=== PATIENT | female | born 1935 | race Caucasian/White ===

== ENCOUNTER → 2016-12-29 | Outpatient (CLI) | payer MEDICARE, OTHER ==
--- NOTE | 2017-01-14 08:06 | MM ---
Reason for exam: screening (asymptomatic). Last mammogram was performed 1 year and 3 months ago. Physical Findings: A clinical breast exam by your physician is recommended on an annual basis and results should be correlated with mammographic findings. MG 3D Screening Mammo W/Cad Bilateral CC and MLO view(s) were taken. Prior study comparison: October 03, 2015, mammogram, performed at [place]. March 10, 2013, mammogram, performed at [place]. The breast tissue is heterogeneously dense. This may lower the sensitivity of mammography. No significant changes when compared with prior studies. ASSESSMENT: Benign, BI-RAD 2 RECOMMENDATION: Routine screening mammogram of both breasts in 1 year.
== END | disposition home or self-care (01) ==
LOC: RADMAMWWP 13:29
PROVIDERS: ATTEND Family Medicine
DX: Z12.31 Encounter for screening mammogram for malignant neoplasm of breast (principal)
CPT/HCPCS: 77063; G0202

== ENCOUNTER 2017-01-08 08:02 | Day surgery (SDC) | payer MEDICARE, OTHER ==
[2017-01-06 11:17] VITALS: BMI 20.7
[~2017-01-08 08:02] MED LIST: LACTATED RINGERS 1,000 ML IV SCH
[2017-01-08 08:23] VITALS: RESP 18; TEMP 97.8
[2017-01-08] MEDS ORDERED: LIDOCAINE 1% INJ 10MG/ML (20 ML MDV) ONE (08:23)
[2017-01-08] MEDS ORDERED: PROPOFOL 10 MG/ML 20 ML VIAL IV ONE (08:23)
--- NOTE | 2017-01-08 08:27 | P.GSHP ---
History of Present Illness H&P Date: 01/08/17 Chief Complaint: GI bleed This a 81-year-old female for from Dr. Titus Loco. Patient's had issues with GI bleed. She presents today for screening colonoscopy - Constitutional Constitutional: Reports as per HPI Past Medical History Past Medical History: Dementia, Memory Impairment Additional Past Medical History / Comment(s): forgetful per son, unsure about some of her health hx., had problem in past w/GI bleeding or rectal bleeding?, recent sleep study done-no results yet History of Any Multi-Drug Resistant Organisms: None Reported Additional Past Surgical History / Comment(s): oral surgy on palate?, partial thyroidectomy Past Anesthesia/Blood Transfusion Reactions: Unable to Obtain Additional Past Anesthesia/Blood Transfusion Reaction / Comment(s): mom not there w/him-he's unsure, he doesn't know of any problems Smoking Status: Never smoker - Past Family History Mother Family Medical History: No Reported History Medications and Allergies Home Medications Medication Instructions Recorded Confirmed Type Donepezil [Aricept] 10 mg PO QAM 01/06/17 01/08/17 History risperiDONE [RisperDAL] 0.25 mg PO HS 01/06/17 01/06/17 History Allergies Allergy/AdvReac Type Severity Reaction Status Date / Time No Known Allergies Allergy Verified 01/08/17 08:17 Surgical - Exam Vital Signs Temp Pulse Resp BP Pulse Ox 97.8 F 77 18 143/69 98 01/08/17 08:21 01/08/17 08:21 01/08/17 08:21 01/08/17 08:21 01/08/17 08:21 - General well developed, no distress - Eyes PERRL - ENT normal pinna Assessment and Plan Plan: GI bleed. We'll perform EGD and colonoscopy.
--- NOTE | 2017-01-08 08:44 | P.OP ---
Date of Procedure: 01/08/17 Preoperative Diagnosis: GI bleed Postoperative Diagnosis: Antral gastritis External hemorrhoids Diverticulosis Procedure(s) Performed: EGD Colonoscopy Implants: Anesthesia: SHARIF Surgeon: Nicanor Lechuga Pathology: other (Antrum) Condition: stable Indications for Procedure: Operative Findings: Description of Procedure: Patient's placed on the endoscopy table in the lateral position. She received IV sedation. The gastroscope some placed oropharynx and passed into the esophagus and into the stomach. The scope was then placed through the pylorus. The first and second portion of the duodenum appeared normal. The scope was then brought back the antrum and this appeared mildly inflamed. A biopsies performed. The scope was unretroflexed and remainder of the stomach appeared normal. There was a small hiatal hernia. The GE junction was at 40 cms. The distal esophagus appeared normal. The proximal esophagus appeared normal. Scope was withdrawn for patient. Next digital rectal exam was performed which revealed external hemorrhoids. The flexible colonoscope was then placed patient anus passed throughout the entire colon. The ileocecal valve was visualized. The cecum, ascending and transverse colon appeared normal. In the descending; there is mild diverticular changes. Scope was then brought back the rectum and this appeared normal. Scope was withdrawn for patient.
[2017-01-08 09:06] VITALS: BP 149/63; PULSE 63
== END 2017-01-08 09:25 | disposition home or self-care (01) ==
LOC: ORWHC2ENDO 08:02
PROVIDERS: ATTEND Surgery
DX: K29.60 Other gastritis without bleeding (principal); K64.4 Residual hemorrhoidal skin tags; K57.90 Diverticulosis of intestine, part unspecified, without perforation or abscess without bleeding; F03.90 Unspecified dementia, unspecified severity, without behavioral disturbance, psychotic disturbance, mood disturbance, and anxiety; Z79.899 Other long term (current) drug therapy
CPT/HCPCS: 88305; 88342; 45378; 43239; J2001; J2704

== ENCOUNTER → 2017-01-27 | Outpatient (CLI) | payer MEDICARE, OTHER ==
--- NOTE | 2017-01-27 10:11 | MR ---
EXAMINATION TYPE: MR brain wo con DATE OF EXAM: 01/27/2017 COMPARISON: NONE HISTORY: CVA, memory loss T1-weighted sagittal, T2, FLAIR, and diffusion axial, and T2 coronal coronal views of the brain are s ubmitted. There is no evidence of acute ischemia. Moderate generalized degenerative change. Diffuse confluent a nd multiple focal areas of abnormal signal within the white matter bilaterally are seen which are non specific. There is a tubular signal void adjacent to the basilar artery on the left. Hyperostosis of the calvarium noted. Craniocervical junction maintained. Changes of chronic left mastoiditis noted. Partially empty sella turcica noted. No cerebellopontine angle mass. Changes of chronic sinusitis noted. Abnormal signal in the joycelyn sugge stive of remote ischemia. IMPRESSION: 1. No acute intracranial process. 2. Moderate degenerative and diffuse nonspecific white matter changes most typical remote microvascul ar ischemia. 3. There is a signal void adjacent to the basilar artery the level of the joycelyn. Vascular anomaly in t he differential diagnosis. Recommend post contrast imaging and MRA [place].
== END | disposition home or self-care (01) ==
LOC: RADMRIMAIN 09:27
PROVIDERS: ATTEND Family Medicine
DX: R90.89 Other abnormal findings on diagnostic imaging of central nervous system (principal)
CPT/HCPCS: 70551

== ENCOUNTER → 2017-03-02 | Outpatient (CLI) | payer MEDICARE, OTHER ==
[2017-03-02 14:59] LABS: Non-African American GFR(MDRD) >60 (>60 ml/min/1.73 sqM)
--- NOTE | 2017-03-02 21:58 | MR ---
EXAMINATION TYPE: MR angio head wo con DATE OF EXAM: 03/02/2017 COMPARISON: NONE HISTORY: ABNORMAL MRI from January 2017 CONTRAST: None TECHNIQUE: Multiplanar multiecho imaging on a 3.0 Jana magnet is performed through the [place]. 3-D hyed-wc-wfwetz imaging is performed. Source images are reviewed on the computer in the axi al plane. Reconstructed images rotating on the computer are reviewed. FINDINGS: The internal carotid arteries bifurcate normally into A1 and M1 segments. The A2 segments are normal. Middle cerebral artery branches are normal. Anterior communicating artery is patent. The right posterior communicating artery is patent. The left posterior communicating artery is patent. Vertebrobasilar arteries within the [id number]-en-lojd are normal. Posterior cerebral vasculature is norm al. No suspicious aneurysm or aneurysmal dilatation is evident. No obstructions are identified. No significant flow-limiting stenosis is evident. Exam is compared to 01/27/2017. No signal abnormality adjacent to the basilar artery is identified. IMPRESSIONS: 1. NORMAL MRA [place] OF CAIN.
--- NOTE | 2017-03-02 22:06 | MR ---
EXAMINATION TYPE: MR brain wo/w con DATE OF EXAM: 03/02/2017 COMPARISON: NONE HISTORY: ABNORMAL MRI from January 2017 CONTRAST: Performed utilizing 5.0 mL intravenous Gadavist gadolinium contrast. TECHNIQUE: Multiplanar, multiecho imaging on a 3.0 Jana magnet is performed through the brain. Stud y is performed within 24 hours of arrival to the hospital. The craniovertebral junction is normal. The pituitary is normal. Diffusion-weighted imaging is performed. No abnormal hyperintensity is present to suggest an acute i ntracranial infarct or acute ischemic change. There are scattered punctate areas of hyperintensity on T2 and Inversion Recovery weighted sequences which are non-specific but can be related to microvascular ischemic changes. White matter changes nell ear stable. Ventricles and sulci are appropriate for the patient age. The signal void adjacent to the basilar artery is again identified. No abnormal signal on MRA is iden tified. No abnormal enhancement is evident. Findings are nonspecific but remains present. IMPRESSIONS: 1. Persistent hypointense signal adjacent to the basilar artery does not appear to have enhancement o r involvement with vascular structures. Finding is nonspecific and of unknown etiology. 2. Periventricular white matter hyperintensities compatible with microvascular ischemic changes.
== END | disposition home or self-care (01) ==
LOC: RADMRIMAIN 14:32
PROVIDERS: ATTEND Family Medicine
DX: R93.0 Abnormal findings on diagnostic imaging of skull and head, not elsewhere classified (principal); R90.82 White matter disease, unspecified
CPT/HCPCS: 82565; 70544; 70553; A9581

== ENCOUNTER → 2017-05-25 | Outpatient (CLI) | payer MEDICARE, OTHER ==
--- NOTE | 2017-05-25 16:48 | US ---
EXAMINATION TYPE: US thyroid st tissue head/neck DATE OF EXAM: 05/25/2017 COMPARISON: NONE CLINICAL HISTORY: 81-year-old female E04.1 Thyroid Nodule. Right thyroid nodule, status post left th yroidectomy TECHNIQUE: Multiple sonographic images of the thyroid gland are obtained. FINDINGS: GLAND SIZE: Right Lobe: 5.8 x 2.8 x 3.3 cm Overall Parenchyma: homogenous Left Lobe: surgically absent Isthmus Thickness: 0.2 cm NODULES RIGHT: # of nodules measured on right: 3 1. 3.5 X 2.4 x 2.7 cm hypoechoic solid nodule at the mid pole with well-defined margins. This nodul e is wider than tall and shows intranodular vascularity. Prior size: No previous 2. 1.9 X 1.0 x 1.5 cm hypoechoic solid nodule at the upper pole with well-defined margins. This nodu le is wider than tall and shows intranodular vascularity. Prior size: no previous 3. 1.3 X 1.1 x 1.3 cm isoechoic solid nodule at the lower pole with well-defined margins. This nodul e is wider than tall and shows intranodular vascularity. Prior size: no previous ISTHMUS: # of nodules measured in the isthmus: 0 Bilateral neck scanned, no evidence of lymphadenopathy. IMPRESSION: 1. Status post left thyroidectomy. 2. 3 nodules on the right, largest measuring 3.5 cm and smallest measuring 1.3 cm. Biopsy can be cons idered.
== END | disposition home or self-care (01) ==
LOC: RADUSWWP 13:40
PROVIDERS: ATTEND Otolaryngology
DX: E04.2 Nontoxic multinodular goiter (principal); Z90.89 Acquired absence of other organs
CPT/HCPCS: 76536

== ENCOUNTER → 2017-07-09 | Outpatient (CLI) | payer MEDICARE, OTHER ==
[2017-07-09 12:44] LABS: Basophils % (A) 1 %; CH 31.1; CHCM 32.5; Eosinophils % (A) 1 %; HCT 38.7 % (34.0-46.0); HDW 2.26; HGB 12.8 gm/dL (11.4-16.0); Luc # (Auto) 0.06; Luc % (Auto) 2; Lymphocytes # (A) 0.8 k/uL (1.0-4.8); Lymphocytes % (A) 23 %; MCH 31.6 pg (25.0-35.0); Mean Platelet Volume 7.5; Monocytes # (A) 0.2 k/uL (0-1.0); Monocytes % (A) 5 %; Neutrophils # (A) 2.4 k/uL (1.3-7.7); Neutrophils % (A) 69 %; RBC 4.04 m/uL (3.80-5.40); RDW 13.5 % (11.5-15.5); WBC 3.5 k/uL (3.8-10.6); WBC (Perox) 4.12
[2017-07-09 13:13] LABS: ALT 39 U/L (9-52); AST 25 U/L (14-36); Alkaline Phosphatase 58 U/L (38-126); Anion Gap 6 mmol/L; Blood Urea Nitrogen 16 mg/dL (7-17); Calcium 9.3 mg/dL (8.4-10.2); Carbon Dioxide 29 mmol/L (22-30); Chloride 105 mmol/L (98-107); Glucose 104 mg/dL (74-99); Non-African American GFR(MDRD) >60 (>60 ml/min/1.73 sqM); Potassium 4.4 mmol/L (3.5-5.1); Sodium 140 mmol/L (137-145); Total Bilirubin 0.3 mg/dL (0.2-1.3); Total Protein 6.1 g/dL (6.3-8.2)
== END | disposition home or self-care (01) ==
LOC: LABWHC1 12:18
PROVIDERS: ATTEND Nurse Practitioner Acute Care
DX: E55.9 Vitamin D deficiency, unspecified (principal); R41.3 Other amnesia
CPT/HCPCS: 36415; 80053; 82306; 82607; 84439; 84443; 84481; 85025

== ENCOUNTER → 2017-08-05 | Outpatient (CLI) | payer MEDICARE, OTHER ==
--- NOTE | 2017-08-07 15:32 | NM ---
EXAMINATION TYPE: NM DatScan Brain SPECT DATE OF EXAM: 08/06/2017 COMPARISON: Prior MRI brain report March 02, 2017. Prior images not available for direct comparison at time of dictation HISTORY: Tremors (G 25.0) per order. TECHNIQUE: 10 drops of Lugol's solution was administered 1 hour prior to injection as a thyroid bloc tello agent. After the administration of 4.92 mCi I-123 Ioflupane DaTscan. Images obtained 3 hours p ost injection. SPECT images of the brain were acquired with axial and coronal reconstructions. FINDINGS: The Floyd scan demonstrates normal uptake of tracer throughout the striata. Consequently there is no evidence of loss of the presynaptic dopaminergic terminals on this investiga tion. IMPRESSION: This normal appearance is against the diagnosis of idiopathic Parkinson's disease or parkinsonian syn drome and is seen in healthy individuals and also patient's with essential tremor, drug-induced parki nsonism and vascular pseudo-parkinsonism.
== END | disposition home or self-care (01) ==
LOC: RADNMMAIN 10:06
PROVIDERS: ATTEND Psychiatry & Neurology Neurology
DX: G25.0 Essential tremor (principal)
CPT/HCPCS: 78607; A9584

== ENCOUNTER 2017-11-17 19:21 | Inpatient (IN) | payer MEDICARE, OTHER ==
--- NOTE | 2017-11-17 19:34 | ED ---
General Adult HPI - General Stated complaint: Syncope Time Seen by Provider: 11/17/17 19:23 Source: RN notes reviewed, old records reviewed - History of Present Illness Initial comments: In this is an 82-year-old female the ER for evaluation syncope. Patient is also having counseled and cough. Complains of headache at this time. No sick contacts or travel history no chest pain shortness of breath or abdominal pain. Patient states she does feel dehydrated - Related Data Home Medications Medication Instructions Recorded Confirmed Chlorthalidone [Hygroton] 25 mg PO DAILY 11/17/17 11/17/17 Donepezil HCl [Aricept] 10 mg PO HS 11/17/17 11/17/17 Primidone [Mysoline] 50 mg PO BID 11/17/17 11/17/17 rOPINIRole HCL [Requip] 0.5 mg PO BID 11/17/17 11/17/17 risperiDONE [RisperDAL] 0.5 mg PO BID 11/17/17 11/17/17 Allergies Allergy/AdvReac Type Severity Reaction Status Date / Time No Known Allergies Allergy Verified 06/12/17 13:10 Review of Systems ROS Statement: Those systems with pertinent positive or pertinent negative responses have been documented in the HPI. ROS Other: All systems not noted in ROS Statement are negative. Past Medical History Past Medical History: Dementia, Memory Impairment Additional Past Medical History / Comment(s): forgetful per son, unsure about some of her health hx., had problem in past w/GI bleeding or rectal bleeding?, recent sleep study done. History of Any Multi-Drug Resistant Organisms: None Reported Additional Past Surgical History / Comment(s): oral surgy on palate. , left partial thyroidectomy Past Anesthesia/Blood Transfusion Reactions: Unable to Obtain Additional Past Anesthesia/Blood Transfusion Reaction / Comment(s): mom not there w/him-he's unsure, he doesn't know of any problems Past Psychological History: Anxiety, Schizoaffective Disorder Smoking Status: Never smoker Past Alcohol Use History: None Reported Past Drug Use History: None Reported - Past Family History Mother Family Medical History: No Reported History General Exam Limitations: altered mental status General appearance: alert, in no apparent distress, in distress, cachectic Head exam: Present: atraumatic, normocephalic, normal inspection Eye exam: Present: normal appearance, PERRL, EOMI. Absent: scleral icterus, conjunctival injection, periorbital swelling ENT exam: Present: normal exam, mucous membranes moist Neck exam: Present: normal inspection. Absent: tenderness, meningismus, lymphadenopathy Respiratory exam: Present: normal lung sounds bilaterally. Absent: respiratory distress, wheezes, rales, rhonchi, stridor Cardiovascular Exam: Present: regular rate, normal rhythm, normal heart sounds. Absent: systolic murmur, diastolic murmur, rubs, gallop, clicks GI/Abdominal exam: Present: soft, normal bowel sounds. Absent: distended, tenderness, guarding, rebound, rigid Extremities exam: Present: normal inspection, full ROM, normal capillary refill. Absent: tenderness, pedal edema, joint swelling, calf tenderness Back exam: Present: normal inspection Neurological exam: Present: alert, oriented X3, CN II-XII intact Psychiatric exam: Present: normal affect, normal mood Skin exam: Present: warm, dry, intact, normal color. Absent: rash Course Vital Signs 11/17/17 11/17/17 19:37 20:53 Temperature 97.7 F Pulse Rate 72 67 Respiratory 16 17 Rate Blood Pressure 172/81 161/77 O2 Sat by Pulse 100 99 Oximetry - Reevaluation(s) Reevaluation #1: 11/17/17 21:19 Patient is feeling better with hydration EKG Findings - EKG Comments: EKG Findings:: EKG shows sinus rhythm rate of 70, pO2 12, QRS 92, QTc 425 Medical Decision Making - Medical Decision Making 82 female ER syncopal event, hyponatremia, dehydration, malnutrition. Patient to be admitted for continued evaluation of low sodium, syncope - Lab Data Result diagrams: 11/17/17 19:36 11/17/17 20:07 Lab Results 11/17/17 11/17/17 11/17/17 Range/Units 19:36 19:36 20:07 WBC 3.7 L (3.8-10.6) k/uL RBC 3.56 L (3.80-5.40) m/uL Hgb 11.6 (11.4-16.0) gm/dL Hct 31.5 L (34.0-46.0) % MCV 88.4 (80.0-100.0) fL MCH 32.6 (25.0-35.0) pg MCHC 36.9 (31.0-37.0) g/dL RDW 12.3 (11.5-15.5) % Plt Count 184 (150-450) k/uL Neutrophils % 73 % Lymphocytes % 17 % Monocytes % 7 % Eosinophils % 1 % Basophils % 0 % Neutrophils # 2.7 (1.3-7.7) k/uL Lymphocytes # 0.6 L (1.0-4.8) k/uL Monocytes # 0.3 (0-1.0) k/uL Eosinophils # 0.1 (0-0.7) k/uL Basophils # 0.0 (0-0.2) k/uL PT 11.2 (9.0-12.0) sec INR 1.2 H (<1.2) APTT 23.7 (22.0-30.0) sec D-Dimer 2.11 H (<0.60) mg/L FEU Sodium 119 L* (137-145) mmol/L Potassium 3.1 L (3.5-5.1) mmol/L Chloride 85 L (98-107) mmol/L Carbon Dioxide 27 (22-30) mmol/L Anion Gap 7 mmol/L BUN 10 (7-17) mg/dL Creatinine 0.43 L (0.52-1.04) mg/dL Est GFR (CKD-EPI)AfAm >90 (>60 ml/min/1.73 sqM) Est GFR (CKD-EPI)NonAf >90 (>60 ml/min/1.73 sqM) Glucose 119 H (74-99) mg/dL Calcium 8.5 (8.4-10.2) mg/dL Magnesium 1.6 (1.6-2.3) mg/dL Total Bilirubin 0.6 (0.2-1.3) mg/dL AST 26 (14-36) U/L ALT 26 (9-52) U/L Alkaline Phosphatase 68 (38-126) U/L Total Creatine Kinase (30-135) U/L CK-MB (CK-2) (0.0-2.4) ng/mL CK-MB (CK-2) Rel Index Troponin I (0.000-0.034) ng/mL Total Protein 5.4 L (6.3-8.2) g/dL Albumin 3.2 L (3.5-5.0) g/dL Urine Color Urine Appearance (Clear) Urine pH (5.0-8.0) Ur Specific Nash (1.001-1.035) Urine Protein (Negative) Urine Glucose (UA) (Negative) Urine Ketones (Negative) Urine Blood (Negative) Urine Nitrite (Negative) Urine Bilirubin (Negative) Urine Urobilinogen (<2.0) mg/dL Ur Leukocyte Esterase (Negative) Ur Squamous Epith Cells (0-4) /hpf Urine Mucus (None) /hpf 11/17/17 11/17/17 Range/Units 20:07 20:07 WBC (3.8-10.6) k/uL RBC (3.80-5.40) m/uL Hgb (11.4-16.0) gm/dL Hct (34.0-46.0) % MCV (80.0-100.0) fL MCH (25.0-35.0) pg MCHC (31.0-37.0) g/dL RDW (11.5-15.5) % Plt Count (150-450) k/uL Neutrophils % % Lymphocytes % % Monocytes % % Eosinophils % % Basophils % % Neutrophils # (1.3-7.7) k/uL Lymphocytes # (1.0-4.8) k/uL Monocytes # (0-1.0) k/uL Eosinophils # (0-0.7) k/uL Basophils # (0-0.2) k/uL PT (9.0-12.0) sec INR (<1.2) APTT (22.0-30.0) sec D-Dimer (<0.60) mg/L FEU Sodium (137-145) mmol/L Potassium (3.5-5.1) mmol/L Chloride (98-107) mmol/L Carbon Dioxide (22-30) mmol/L Anion Gap mmol/L BUN (7-17) mg/dL Creatinine (0.52-1.04) mg/dL Est GFR (CKD-EPI)AfAm (>60 ml/min/1.73 sqM) Est GFR (CKD-EPI)NonAf (>60 ml/min/1.73 sqM) Glucose (74-99) mg/dL Calcium (8.4-10.2) mg/dL Magnesium (1.6-2.3) mg/dL Total Bilirubin (0.2-1.3) mg/dL AST (14-36) U/L ALT (9-52) U/L Alkaline Phosphatase (38-126) U/L Total Creatine Kinase 80 (30-135) U/L CK-MB (CK-2) 1.7 (0.0-2.4) ng/mL CK-MB (CK-2) Rel Index 2.1 Troponin I <0.012 (0.000-0.034) ng/mL Total Protein (6.3-8.2) g/dL Albumin (3.5-5.0) g/dL Urine Color Yellow Urine Appearance Cloudy H (Clear) Urine pH 8.0 (5.0-8.0) Ur Specific Nash 1.009 (1.001-1.035) Urine Protein Negative (Negative) Urine Glucose (UA) Negative (Negative) Urine Ketones Negative (Negative) Urine Blood Negative (Negative) Urine Nitrite Negative (Negative) Urine Bilirubin Negative (Negative) Urine Urobilinogen <2.0 (<2.0) mg/dL Ur Leukocyte Esterase Negative (Negative) Ur Squamous Epith Cells <1 (0-4) /hpf Urine Mucus Rare H (None) /hpf - Radiology Data Radiology results: report reviewed (CT brain negative chest x-ray negative CT chest pending), image reviewed Disposition Clinical Impression: Vasovagal syncope, Hyponatremia Disposition: ADMITTED IP TO THIS [facility] Condition: Fair Is patient prescribed a controlled substance at d/c from ED?: No Referrals: Titus Gutierrez MD [Primary Care Provider] - 1-2 days
[2017-11-17 19:53] LABS: Basophils % (A) 0 %; Eosinophils # (A) 0.1 k/uL (0-0.7); Eosinophils % (A) 1 %; HCT 31.5 % (34.0-46.0); HGB 11.6 gm/dL (11.4-16.0); Lymphocytes # (A) 0.6 k/uL (1.0-4.8); Lymphocytes % (A) 17 %; MCH 32.6 pg (25.0-35.0); MCHC 36.9 g/dL (31.0-37.0); MCV 88.4 fL (80.0-100.0); Mean Platelet Volume 6.9; Monocytes # (A) 0.3 k/uL (0-1.0); Monocytes % (A) 7 %; Neutrophils # (A) 2.7 k/uL (1.3-7.7); Neutrophils % (A) 73 %; Platelet Count 184 k/uL (150-450); RBC 3.56 m/uL (3.80-5.40); RDW 12.3 % (11.5-15.5); WBC 3.7 k/uL (3.8-10.6)
[2017-11-17 20:22] LABS: Appearance,Urine Cloudy (Clear); Bilirubin,Urine Negative (Negative); Blood,Urine Negative (Negative); Color,Urine Yellow; Glucose,Urine (UA) Negative (Negative); Ketones,Urine Negative (Negative); Leukocyte Esterase,Urine Negative (Negative); Mucus,Urine Rare /hpf; Nitrite,Urine Negative (Negative); Protein,Urine Negative (Negative); Specific Gravity,Urine 1.009 (1.001-1.035); Squamous Epithelial Cell,Urine <1 /hpf (0-4); Urobilinogen,Urine <2.0 mg/dL (<2.0)
[2017-11-17 20:26] LABS: INR 1.2 (<1.2); Partial Thromboplastin Time 23.7 sec (22.0-30.0); Prothrombin Time 11.2 sec (9.0-12.0)
[2017-11-17 20:33] LABS: D-Dimer 2.11 mg/L FEU (<0.60)
[2017-11-17 20:43] LABS: ALT 26 U/L (9-52); AST 26 U/L (14-36); Albumin 3.2 g/dL (3.5-5.0); Alkaline Phosphatase 68 U/L (38-126); Anion Gap 7 mmol/L; Blood Urea Nitrogen 10 mg/dL (7-17); Calcium 8.5 mg/dL (8.4-10.2); Carbon Dioxide 27 mmol/L (22-30); Chloride 85 mmol/L (98-107); Glucose 119 mg/dL (74-99); Magnesium 1.6 mg/dL (1.6-2.3); Potassium 3.1 mmol/L (3.5-5.1); Total Bilirubin 0.6 mg/dL (0.2-1.3); Total Protein 5.4 g/dL (6.3-8.2)
[2017-11-17 20:45] LABS: Sodium 119 mmol/L (137-145)
[2017-11-17 20:50] LABS: Creatine Kinase 80 U/L (30-135)
[2017-11-17 21:03] LABS: Creatine Kinase MB 1.7 ng/mL (0.0-2.4); Troponin I <0.012 ng/mL (0.000-0.034)
--- NOTE | 2017-11-17 21:05 | XR ---
EXAMINATION TYPE: XR chest 2V DATE OF EXAM: 11/17/2017 COMPARISON: NONE HISTORY: Dementia. Syncope. TECHNIQUE: Frontal and lateral views of the chest are obtained. FINDINGS: There is no heart failure nor confluent pneumonic infiltrate. Thoracic aorta is atheromato us. There is no pleural effusion. There are chest leads. IMPRESSION: No active cardiopulmonary disease. Atheromatous aorta.
--- NOTE | 2017-11-17 21:16 | CT ---
EXAMINATION TYPE: CT brain shukri jackson DATE OF EXAM: 11/17/2017 COMPARISON: NONE HISTORY: Syncopal episode today. CT DLP: 1081.8 mGycm Automated exposure control for dose reduction was used. TECHNIQUE: CT scan of the head and cervical spine are performed without contrast. FINDINGS: There is cerebral cortical atrophy. There is patchy hypodensity in the periventricular wh ite matter. There is no mass effect nor midline shift. There is no sign of intracranial hemorrhage. T he calvarium is intact. The cervical vertebra have fairly normal spacing and alignment. The posterior elements are intact. Th ere is minimal facet arthropathy. The skull base is intact. There is no evidence of a fracture. IMPRESSION: Cerebral atrophy. No acute intracranial abnormality. Chronic small vessel ischemia. Negative CT scan of the cervical spine. No fracture.
[2017-11-17] MEDS ORDERED: SODIUM CHLORIDE 0.9% 1,000 ML IV STA ×2 (21:20)
[2017-11-17] MEDS ORDERED: RX INFO: IV CONTRAST WAS GIVEN 1 EACH MISC MISCELLANE PRN (21:20)
[2017-11-17] MEDS ORDERED: POTASSIUM BICARBONATE/CIT AC 20 MEQ TABLET.EFF PO ONE (21:20)
[2017-11-17] MEDS ORDERED: SODIUM CHLORIDE 0.9% 500 ML IV STA (21:20)
[2017-11-17] MEDS ORDERED: POTASSIUM CHLORIDE 10 MEQ in WATER FOR INJECTION 1 100ML.BAG IVPB STA (21:22)
--- NOTE | 2017-11-17 22:18 | CT ---
EXAMINATION TYPE: CT angio chest DATE OF EXAM: 11/17/2017 9:53 PM COMPARISON: NONE HISTORY: Elevated d-dimer. Chest pain CT DLP: 125.6 mGycm Automated exposure control for dose reduction was used. CONTRAST: CTA scan of the thorax is performed with IV Contrast, patient injected with 78 mL of Isovue 370, pulm onary embolism protocol. There are 3-D post processed images.. FINDINGS: Ascending aorta measures 3.3 cm. There is no evidence of aortic aneurysm or dissection. I see no fill ing defects in the pulmonary arteries. There is no mediastinal adenopathy. There are no hilar masses. There is some reticular infiltrate in the upper lobes near the lung apices. There is no evidence of a pulmonary mass. There is patchy linear density at the lung bases. There is no pleural effusion. The re is no pericardial effusion. Bony thorax is intact. IMPRESSION: NO EVIDENCE OF PULMONARY EMBOLISM. PATCHY ATELECTASIS AT THE LUNG BASES. RETICULAR DENSITY IN THE OSVALDO G APICES CONSISTENT WITH SCARRING.
[2017-11-17] MEDS ORDERED: POTASSIUM CHLORIDE 20 MEQ in WATER FOR INJECTION 1 100ML.BAG IVPB ONE (22:30)
[2017-11-18] MEDS: ENOXAPARIN 40 MG/0.4 ML SYRINGE SQ SCH (09:31)
[2017-11-18] MEDS: risperiDONE 0.5 MG TAB PO SCH ×2 (09:31→20:43)
[2017-11-18] MEDS: PRIMIDONE 50 MG TAB PO SCH ×2 (09:31→20:42)
[2017-11-18 09:58] VITALS: BMI 15.2
[2017-11-18 11:59] LABS: Anion Gap 7 mmol/L; Blood Urea Nitrogen 11 mg/dL (7-17); Carbon Dioxide 27 mmol/L (22-30); Chloride 99 mmol/L (98-107); Glucose 127 mg/dL (74-99); Potassium 4.3 mmol/L (3.5-5.1); Sodium 133 mmol/L (137-145)
[2017-11-18] MEDS: DONEPEZIL 10 MG TAB PO SCH (20:42)
--- NOTE | 2017-11-18 22:19 | HP ---
HISTORY AND PHYSICAL CHIEF COMPLAINT: An 82-year-old white female with a fall at home. Apparently she had a syncopal episode and fell, did not hurt herself. Complained of a headache, may have hit her head. CT scan of the head and neck were negative as well as CT of the chest was negative. She states she does feel dehydrated. No shortness of breath, chest pain or abdominal pain. HOME MEDICATIONS: 1. Hygroton. 2. Aricept. 3. Mysoline. 4. Requip. 5. Risperdal. ALLERGIES: No known drug allergies. REVIEW OF SYSTEMS: Negative except for mentioned in HPI. PAST MEDICAL HISTORY: Dementia, memory impairment, anxiety, schizoaffective disorder, dementia with some psychotic features. She has had left a partial thyroidectomy. FAMILY HISTORY: Mother negative. Father unknown. PHYSICAL EXAM: She has altered mental status. Alert, giving some appropriate answers, does recognize who I am. CARDIOVASCULAR: S1, S2. HEMATOLOGY: Negative Homans'. PSYCH: Alert and oriented x1. BACK: Normal to inspection. NEUROLOGIC: Cranial nerves are intact. SKIN: Warm, dry. No rashes, excoriations, bruising. RESPIRATORY: Normal lung sounds. No rales or rhonchi. HEART: Regular rate and rhythm rate and rhythm. OPHTHALMOLOGICAL: Pupils equal, round, reactive to light and accommodation. Temp 97.7, pulse 67-72, respiratory 16-17, blood pressure 160s-170s/70s. EKG: Sinus rhythm. White count is 3.7, hemoglobin 11.6. Sodium 119, potassium 3.1, BUN 10, creatinine 0.43. Troponin is negative. ASSESSMENT: 1. Vasovagal syncope. 2. Hyponatremia. 3. Hypokalemia. Electrolytes will be replaced. IV fluids will be given. Diuretics will be discontinued. Cardiology consult, PT/OT. MMORALIAL / IJN: [id number] /
[2017-11-19] MEDS: SODIUM CHLORIDE 0.9% 1,000 ML IV SCH ×2 (06:24→12:20)
[2017-11-19] MEDS: risperiDONE 0.5 MG TAB PO SCH ×2 (07:48→20:25)
[2017-11-19] MEDS: ENOXAPARIN 40 MG/0.4 ML SYRINGE SQ SCH (07:48)
[2017-11-19] MEDS: PRIMIDONE 50 MG TAB PO SCH ×2 (07:48→20:25)
--- NOTE | 2017-11-19 08:10 | CDI ---
Last Revision, June 2017 Documentation Clarification Form Date: 11/19/2017 8:06:00 AM From: Emily HaynesALYSSA, CCDS Admit Date: 11/17/2017 11:32:00 PM Patient Name: Emily Esqueda Visit Number: [id number] Discharge Date: ATTENTION: The Clinical Documentation Specialists (CDI) and [facility] Coding Staff appreciate your assistance in clarifying documentation. Please respond to the clarification below the line at the bottom and electronically sign. The CDI & [facility] Coding staff will review the response and follow-up if needed. Please note: Queries are made part of the Legal Health Record. If you have any questions, please contact the author of this message via ITS. Dr. Titus Gutierrez: Malnutrition has been documented in the ED note. Also diagnosed with dehydration , hyponatremia & hypokalemia. Per the nursing notes 11/18: ...sunken eyes, temoral wasting. History/Risk Factors: Dementia, memory impairment, schizoaffective disorder. Clinical Indicators: Presented to ED after fall at home, nos, possibly hit her head after vasovagal syncopal event. Weight: 39.009 kg, Height: 5ft 3in. BMI: 15.2 Labs: Total Protein 5.4*, Albumin 3.2* Treatment: Electrolyte replacement, IV fluid boluses x2, IV fl rate 100 Pending cardiology consult. In your professional opinion, can you please clarify if these findings signify one of the following conditions? Mild Protein-Calorie Malnutrition Moderate Protein-Calorie Malnutrition Severe Protein-Calorie Malnutrition Other condition, please specify Unable to determine Please continue to document in your progress notes and discharge summary in order to capture severity of illness and risk of mortality. Include clinical findings that support your diagnosis. MTDD
[2017-11-19 10:15] LABS: ALT 19 U/L (9-52); AST 20 U/L (14-36); Alkaline Phosphatase 61 U/L (38-126); Anion Gap 10 mmol/L; Blood Urea Nitrogen 9 mg/dL (7-17); Calcium 8.7 mg/dL (8.4-10.2); Carbon Dioxide 25 mmol/L (22-30); Chloride 101 mmol/L (98-107); Glucose 124 mg/dL (74-99); Potassium 4.4 mmol/L (3.5-5.1); Sodium 136 mmol/L (137-145); Total Bilirubin 0.3 mg/dL (0.2-1.3); Total Protein 5.2 g/dL (6.3-8.2)
[2017-11-19 10:17] LABS: Basophils % (A) 1 %; Eosinophils # (A) 0.1 k/uL (0-0.7); Eosinophils % (A) 1 %; HCT 37.1 % (34.0-46.0); HGB 13.1 gm/dL (11.4-16.0); Lymphocytes # (A) 0.7 k/uL (1.0-4.8); Lymphocytes % (A) 15 %; MCH 32.9 pg (25.0-35.0); MCHC 35.3 g/dL (31.0-37.0); Mean Platelet Volume 6.9; Monocytes # (A) 0.2 k/uL (0-1.0); Monocytes % (A) 6 %; Neutrophils # (A) 3.4 k/uL (1.3-7.7); Neutrophils % (A) 77 %; Platelet Count 245 k/uL (150-450); RBC 3.98 m/uL (3.80-5.40); RDW 12.4 % (11.5-15.5); WBC 4.4 k/uL (3.8-10.6)
[2017-11-19 15:47] VITALS: RESP 16
[2017-11-19] MEDS: DONEPEZIL 10 MG TAB PO SCH (20:25)
--- NOTE | 2017-11-19 20:53 | PN ---
PROGRESS NOTE SUBJECTIVE: [id number] white female who was admitted with a fall, contusion to the head, admitted for monitoring. Her sodium and potassium have been evaluated. She is back to her baseline. CARDIOVASCULAR: S1, S2. LUNGS: Transmitted upper airway sounds. HEMATOLOGY: Negative Homans. White count is normal. Hemoglobin is normal. Sodium 136, potassium 4.4, creatinine 0.5, glucose mid 100s. Albumin 3.0. ASSESSMENT: 1. Head contusion. 2. Hypokalemia. 3. Hyponatremia. All improving. Continue with current treatment, PT/OT. Possible discharge home in next 24 to 48 hours. MMODL / IJN: [id number] /
--- NOTE | 2017-11-19 22:53 | DS ---
DISCHARGE SUMMARY ADDENDUM: Mild protein calorie malnutrition. MMODL / IJN: [id number] /
[2017-11-20] MEDS: SODIUM CHLORIDE 0.9% 1,000 ML IV SCH (05:06)
[2017-11-20 07:00] VITALS: BP 122/64; PULSE 74; TEMP 97.5
[2017-11-20] MEDS: ENOXAPARIN 40 MG/0.4 ML SYRINGE SQ SCH (07:54)
[2017-11-20] MEDS: risperiDONE 0.5 MG TAB PO SCH (07:54)
[2017-11-20] MEDS: PRIMIDONE 50 MG TAB PO SCH (07:54)
== END 2017-11-20 13:29 | disposition home health service (06) | DRG 641 ==
LOC: EC 19:21 → 4MS4W 23:32
PROVIDERS: ADMIT Family Medicine; ATTEND Family Medicine
DX: E87.1 Hypo-osmolality and hyponatremia (principal); E44.1 Mild protein-calorie malnutrition; Z68.1 Body mass index [BMI] 19.9 or less, adult; F03.90 Unspecified dementia, unspecified severity, without behavioral disturbance, psychotic disturbance, mood disturbance, and anxiety; F41.9 Anxiety disorder, unspecified; Z79.899 Other long term (current) drug therapy; E86.0 Dehydration; E87.6 Hypokalemia; F25.9 Schizoaffective disorder, unspecified; S00.93XA Contusion of unspecified part of head, initial encounter; W19.XXXA Unspecified fall, initial encounter; Y92.009 Unspecified place in unspecified non-institutional (private) residence as the place of occurrence of the external cause; E89.0 Postprocedural hypothyroidism; R40.2361 Coma scale, best motor response, obeys commands, in the field [EMT or ambulance]; R40.2141 Coma scale, eyes open, spontaneous, in the field [EMT or ambulance]; R40.2241 Coma scale, best verbal response, confused conversation, in the field [EMT or ambulance]
CPT/HCPCS: 36415; 70450; 71046; 71275; 72125; 80048; 80053; 81001; 82550; 82553; 83735; 84484; 85025; 85379; 85610; 85730; 93005; 96365; 96366; 99285

== ENCOUNTER 2017-12-05 00:02 | Inpatient (IN) | payer MEDICARE, OTHER ==
[2017-12-05 00:36] LABS: Basophils % (A) 0 %; Eosinophils # (A) 0.2 k/uL (0-0.7); Eosinophils % (A) 6 %; HCT 38.5 % (34.0-46.0); HGB 13.4 gm/dL (11.4-16.0); Lymphocytes # (A) 0.8 k/uL (1.0-4.8); Lymphocytes % (A) 24 %; MCH 32.5 pg (25.0-35.0); MCHC 34.8 g/dL (31.0-37.0); MCV 93.5 fL (80.0-100.0); Mean Platelet Volume 6.9; Monocytes # (A) 0.3 k/uL (0-1.0); Monocytes % (A) 7 %; Neutrophils # (A) 2.1 k/uL (1.3-7.7); Neutrophils % (A) 61 %; Platelet Count 200 k/uL (150-450); RBC 4.12 m/uL (3.80-5.40); RDW 12.7 % (11.5-15.5); WBC 3.5 k/uL (3.8-10.6)
--- NOTE | 2017-12-05 00:46 | ED ---
Dizziness HPI - General Chief Complaint: Dizziness Stated Complaint: not feeling well Time Seen by Provider: 12/05/17 00:13 Source: patient, family Mode of arrival: ambulatory Limitations: no limitations - History of Present Illness MD Complaint: dizziness, difficulty walking -: days(s) Timing: gradual onset Description: off-balance, difficulty walking History of Trauma: No Severity: severe Improves With: nothing Worsens With: nothing Associated Symptoms: weakness - Related Data Home Medications Medication Instructions Recorded Confirmed Donepezil HCl [Aricept] 10 mg PO HS 11/17/17 12/05/17 Primidone [Mysoline] 50 mg PO BID 11/17/17 12/05/17 Previous Rx's Medication Instructions Recorded Haloperidol [Haldol] 0.5 mg PO BID tab 12/10/17 Multivitamins, Thera [Multivitamin 1 each PO DAILY@1200 tab 12/10/17 (formulary)] Allergies Allergy/AdvReac Type Severity Reaction Status Date / Time No Known Allergies Allergy Verified 12/05/17 12:21 Review of Systems ROS Statement: Those systems with pertinent positive or pertinent negative responses have been documented in the HPI. ROS Other: All systems not noted in ROS Statement are negative. Constitutional: Reports: weakness Respiratory: Denies: cough, dyspnea Cardiovascular: Denies: chest pain, palpitations, orthopnea, edema, syncope Gastrointestinal: Reports: diarrhea. Denies: abdominal pain, vomiting Genitourinary: Denies: dysuria Musculoskeletal: Denies: back pain Skin: Denies: rash Neurological: Denies: headache, weakness, numbness Past Medical History Past Medical History: Dementia, Memory Impairment Additional Past Medical History / Comment(s): forgetful per son, unsure about some of her health hx., had problem in past w/GI bleeding or rectal bleeding?, recent sleep study done. History of Any Multi-Drug Resistant Organisms: None Reported Additional Past Surgical History / Comment(s): oral surgy on palate. , left partial thyroidectomy Past Anesthesia/Blood Transfusion Reactions: Unable to Obtain Additional Past Anesthesia/Blood Transfusion Reaction / Comment(s): mom not there w/him-he's unsure, he doesn't know of any problems Past Psychological History: Anxiety, Schizoaffective Disorder Smoking Status: Never smoker Past Alcohol Use History: None Reported Past Drug Use History: None Reported - Past Family History Mother Family Medical History: No Reported History General Exam Limitations: no limitations General appearance: alert, in no apparent distress Head exam: Present: atraumatic, normocephalic Eye exam: Present: normal appearance. Absent: scleral icterus, conjunctival injection ENT exam: Absent: normal oropharynx Neck exam: Present: normal inspection Respiratory exam: Present: normal lung sounds bilaterally. Absent: respiratory distress, wheezes, rales, rhonchi, stridor Cardiovascular Exam: Present: regular rate, normal rhythm, normal heart sounds. Absent: systolic murmur, diastolic murmur, rubs, gallop GI/Abdominal exam: Present: soft. Absent: distended, tenderness, guarding, rebound Course Vital Signs 12/05/17 12/05/17 00:04 03:00 Temperature 97.2 F L 97.6 F Pulse Rate 68 77 Respiratory 16 20 Rate Blood Pressure 159/76 136/77 O2 Sat by Pulse 97 98 Oximetry EKG Findings - EKG Comments: EKG Findings:: There is possible right ventricular conduction delay. - EKG Results: EKG: interpreted by FUNMI, sinus rhythm, normal axis EKG shows: bradycardia (Rate approximately 58 bpm) - Blocks, [place], Hypertrophy, ST Abn: AV and intraventricular conduction: 1 AV block Medical Decision Making - Lab Data Result diagrams: 12/06/17 06:57 12/06/17 06:56 Lab Results 12/05/17 12/05/17 12/05/17 Range/Units 00:13 00:23 00:23 WBC 3.5 L (3.8-10.6) k/uL RBC 4.12 (3.80-5.40) m/uL Hgb 13.4 (11.4-16.0) gm/dL Hct 38.5 (34.0-46.0) % MCV 93.5 (80.0-100.0) fL MCH 32.5 (25.0-35.0) pg MCHC 34.8 (31.0-37.0) g/dL RDW 12.7 (11.5-15.5) % Plt Count 200 (150-450) k/uL Neutrophils % 61 % Lymphocytes % 24 % Monocytes % 7 % Eosinophils % 6 % Basophils % 0 % Neutrophils # 2.1 (1.3-7.7) k/uL Lymphocytes # 0.8 L (1.0-4.8) k/uL Monocytes # 0.3 (0-1.0) k/uL Eosinophils # 0.2 (0-0.7) k/uL Basophils # 0.0 (0-0.2) k/uL Sodium 134 L (137-145) mmol/L Potassium 4.1 (3.5-5.1) mmol/L Chloride 98 (98-107) mmol/L Carbon Dioxide 25 (22-30) mmol/L Anion Gap 11 mmol/L BUN 10 (7-17) mg/dL Creatinine 0.50 L (0.52-1.04) mg/dL Est GFR (CKD-EPI)AfAm >90 (>60 ml/min/1.73 sqM) Est GFR (CKD-EPI)NonAf >90 (>60 ml/min/1.73 sqM) Glucose 97 (74-99) mg/dL Calcium 9.3 (8.4-10.2) mg/dL Magnesium (1.6-2.3) mg/dL Total Bilirubin 0.4 (0.2-1.3) mg/dL AST 36 (14-36) U/L ALT 41 (9-52) U/L Alkaline Phosphatase 69 (38-126) U/L Troponin I (0.000-0.034) ng/mL Total Protein 6.1 L (6.3-8.2) g/dL Albumin 3.7 (3.5-5.0) g/dL Urine Color Urine Appearance (Clear) Urine pH (5.0-8.0) Ur Specific [place] (1.001-1.035) Urine Protein (Negative) Urine Glucose (UA) (Negative) Urine Ketones (Negative) Urine Blood (Negative) Urine Nitrite (Negative) Urine Bilirubin (Negative) Urine Urobilinogen (<2.0) mg/dL Ur Leukocyte Esterase (Negative) Urine RBC (0-5) /hpf Urine WBC (0-5) /hpf Ur Squamous Epith Cells (0-4) /hpf Urine Bacteria (None) /hpf Urine Mucus (None) /hpf C. difficile (EIA) Intrp Negative (Negative) 12/05/17 12/05/17 12/06/17 Range/Units 00:23 00:34 06:56 WBC (3.8-10.6) k/uL RBC (3.80-5.40) m/uL Hgb (11.4-16.0) gm/dL Hct (34.0-46.0) % MCV (80.0-100.0) fL MCH (25.0-35.0) pg MCHC (31.0-37.0) g/dL RDW (11.5-15.5) % Plt Count (150-450) k/uL Neutrophils % % Lymphocytes % % Monocytes % % Eosinophils % % Basophils % % Neutrophils # (1.3-7.7) k/uL Lymphocytes # (1.0-4.8) k/uL Monocytes # (0-1.0) k/uL Eosinophils # (0-0.7) k/uL Basophils # (0-0.2) k/uL Sodium 136 L (137-145) mmol/L Potassium 4.6 (3.5-5.1) mmol/L Chloride 101 (98-107) mmol/L Carbon Dioxide 28 (22-30) mmol/L Anion Gap 7 mmol/L BUN 13 (7-17) mg/dL Creatinine 0.48 L (0.52-1.04) mg/dL Est GFR (CKD-EPI)AfAm >90 (>60 ml/min/1.73 sqM) Est GFR (CKD-EPI)NonAf >90 (>60 ml/min/1.73 sqM) Glucose 106 H (74-99) mg/dL Calcium 8.9 (8.4-10.2) mg/dL Magnesium 1.8 (1.6-2.3) mg/dL Total Bilirubin 0.4 (0.2-1.3) mg/dL AST 35 (14-36) U/L ALT 39 (9-52) U/L Alkaline Phosphatase 58 (38-126) U/L Troponin I <0.012 (0.000-0.034) ng/mL Total Protein 5.6 L (6.3-8.2) g/dL Albumin 3.2 L (3.5-5.0) g/dL Urine Color Light Yellow Urine Appearance Cloudy H (Clear) Urine pH 6.5 (5.0-8.0) Ur Specific [place] 1.003 (1.001-1.035) Urine Protein Negative (Negative) Urine Glucose (UA) Negative (Negative) Urine Ketones Negative (Negative) Urine Blood Trace H (Negative) Urine Nitrite Negative (Negative) Urine Bilirubin Negative (Negative) Urine Urobilinogen <2.0 (<2.0) mg/dL Ur Leukocyte Esterase Negative (Negative) Urine RBC 6 H (0-5) /hpf Urine WBC 19 H (0-5) /hpf Ur Squamous Epith Cells <1 (0-4) /hpf Urine Bacteria Few H (None) /hpf Urine Mucus Rare H (None) /hpf C. difficile (EIA) Intrp (Negative) 12/06/17 Range/Units 06:57 WBC 3.8 (3.8-10.6) k/uL RBC 4.08 (3.80-5.40) m/uL Hgb 13.4 (11.4-16.0) gm/dL Hct 39.4 (34.0-46.0) % MCV 96.5 (80.0-100.0) fL MCH 32.8 (25.0-35.0) pg MCHC 34.0 (31.0-37.0) g/dL RDW 13.0 (11.5-15.5) % Plt Count 211 (150-450) k/uL Neutrophils % 73 % Lymphocytes % 14 % Monocytes % 6 % Eosinophils % 5 % Basophils % 1 % Neutrophils # 2.8 (1.3-7.7) k/uL Lymphocytes # 0.6 L (1.0-4.8) k/uL Monocytes # 0.2 (0-1.0) k/uL Eosinophils # 0.2 (0-0.7) k/uL Basophils # 0.0 (0-0.2) k/uL Sodium (137-145) mmol/L Potassium (3.5-5.1) mmol/L Chloride (98-107) mmol/L Carbon Dioxide (22-30) mmol/L Anion Gap mmol/L BUN (7-17) mg/dL Creatinine (0.52-1.04) mg/dL Est GFR (CKD-EPI)AfAm (>60 ml/min/1.73 sqM) Est GFR (CKD-EPI)NonAf (>60 ml/min/1.73 sqM) Glucose (74-99) mg/dL Calcium (8.4-10.2) mg/dL Magnesium (1.6-2.3) mg/dL Total Bilirubin (0.2-1.3) mg/dL AST (14-36) U/L ALT (9-52) U/L Alkaline Phosphatase (38-126) U/L Troponin I (0.000-0.034) ng/mL Total Protein (6.3-8.2) g/dL Albumin (3.5-5.0) g/dL Urine Color Urine Appearance (Clear) Urine pH (5.0-8.0) Ur Specific [place] (1.001-1.035) Urine Protein (Negative) Urine Glucose (UA) (Negative) Urine Ketones (Negative) Urine Blood (Negative) Urine Nitrite (Negative) Urine Bilirubin (Negative) Urine Urobilinogen (<2.0) mg/dL Ur Leukocyte Esterase (Negative) Urine RBC (0-5) /hpf Urine WBC (0-5) /hpf Ur Squamous Epith Cells (0-4) /hpf Urine Bacteria (None) /hpf Urine Mucus (None) /hpf C. difficile (EIA) Intrp (Negative) Disposition Clinical Impression: Generalized weakness, Diarrhea Disposition: ADMITTED IP TO THIS HOSP Condition: Fair Is patient prescribed a controlled substance at d/c from ED?: No
[2017-12-05 00:48] LABS: ALT 41 U/L (9-52); AST 36 U/L (14-36); Albumin 3.7 g/dL (3.5-5.0); Alkaline Phosphatase 69 U/L (38-126); Anion Gap 11 mmol/L; Blood Urea Nitrogen 10 mg/dL (7-17); Calcium 9.3 mg/dL (8.4-10.2); Carbon Dioxide 25 mmol/L (22-30); Chloride 98 mmol/L (98-107); Glucose 97 mg/dL (74-99); Potassium 4.1 mmol/L (3.5-5.1); Sodium 134 mmol/L (137-145); Total Bilirubin 0.4 mg/dL (0.2-1.3); Total Protein 6.1 g/dL (6.3-8.2)
[2017-12-05 01:05] LABS: Appearance,Urine Cloudy (Clear); Bacteria,Urine Few /hpf; Bilirubin,Urine Negative (Negative); Blood,Urine Trace (Negative); Color,Urine Light Yellow; Glucose,Urine (UA) Negative (Negative); Ketones,Urine Negative (Negative); Leukocyte Esterase,Urine Negative (Negative); Mucus,Urine Rare /hpf; Nitrite,Urine Negative (Negative); PH, Urine 6.5 (5.0-8.0); Protein,Urine Negative (Negative); RBC,Urine 6 /hpf (0-5); Specific Gravity,Urine 1.003 (1.001-1.035); Squamous Epithelial Cell,Urine <1 /hpf (0-4); Urobilinogen,Urine <2.0 mg/dL (<2.0); WBC,Urine 19 /hpf (0-5)
--- NOTE | 2017-12-05 02:03 | XR ---
EXAMINATION TYPE: XR chest 2V DATE OF EXAM: 12/05/2017 COMPARISON: 11/17/2017 HISTORY: Dizziness TECHNIQUE: Frontal and lateral views of the chest are obtained. FINDINGS: There is no heart failure nor confluent pneumonic infiltrate. Heart is enlarged. There are chest leads. Thoracic aorta is atheromatous. There is no pleural effusion. The bony thorax is intact . IMPRESSION: No active cardiopulmonary disease. Mild cardiomegaly. Heart appears increased slightly c ompared to last exam.
--- NOTE | 2017-12-05 02:04 | CT ---
EXAMINATION TYPE: CT brain wo con DATE OF EXAM: 12/05/2017 COMPARISON: 11/17/2017 HISTORY: Prior on synapse, dizziness, weakness CT DLP: 1089.20 mGycm Automated exposure control for dose reduction was used. FINDINGS: There is some cerebral cortical atrophy. There is no mass effect nor midline shift. There is no sign of intracranial hemorrhage. The calvarium is intact. There is mild hypodensity in the periventricular white matter. IMPRESSION: CEREBRAL ATROPHY AND MILD CHRONIC SMALL VESSEL ISCHEMIA. NO CHANGE COMPARED TO OLD EXAM.
[2017-12-05] MEDS ORDERED: NALOXONE 0.4 MG/ML 1 ML VIAL IV PRN (03:14)
[2017-12-05] MEDS: SODIUM CHLORIDE 0.9% 1,000 ML IV SCH ×2 (04:33→17:46)
[2017-12-05 06:27] VITALS: BMI 15.2
[2017-12-05] MEDS: PRIMIDONE 50 MG TAB PO SCH ×2 (10:01→20:12)
[2017-12-05] MEDS: MULTIVITAMINS, THERA 1 EACH TAB PO SCH (12:56)
[2017-12-05] MEDS: DONEPEZIL 10 MG TAB PO SCH (20:12)
[2017-12-06] MEDS: SODIUM CHLORIDE 0.9% 1,000 ML IV SCH ×2 (05:02→20:43)
[2017-12-06 07:31] LABS: ALT 39 U/L (9-52); AST 35 U/L (14-36); Albumin 3.2 g/dL (3.5-5.0); Alkaline Phosphatase 58 U/L (38-126); Anion Gap 7 mmol/L; Blood Urea Nitrogen 13 mg/dL (7-17); Calcium 8.9 mg/dL (8.4-10.2); Carbon Dioxide 28 mmol/L (22-30); Chloride 101 mmol/L (98-107); Glucose 106 mg/dL (74-99); Magnesium 1.8 mg/dL (1.6-2.3); Potassium 4.6 mmol/L (3.5-5.1); Sodium 136 mmol/L (137-145); Total Bilirubin 0.4 mg/dL (0.2-1.3); Total Protein 5.6 g/dL (6.3-8.2)
[2017-12-06] MEDS: PRIMIDONE 50 MG TAB PO SCH ×2 (07:55→20:42)
--- NOTE | 2017-12-06 08:16 | HP ---
HISTORY AND PHYSICAL SUBJECTIVE: 82-year-old white female with generalized weakness. HISTORY OF PRESENT ILLNESS: 82-year-old white female who is admitted with profound diarrhea and dehydration and generalized weakness and off-balance, difficulty walking, gradually onset dizziness for a few days. HOME MEDICATIONS: Include Aricept 10 mg daily, Mysoline 50 mg b.i.d., Requip 0.5 b.i.d. Amantadine Donepezil 1 tab daily and multivitamins, which is this is incorrect she does not take Aricept by itself. She has it mixed in with the Namzaric 14/10 mg daily. ALLERGIES: Negative. REVIEW OF SYSTEMS: Fourteen point review of systems negative except for mentioned in HPI. PAST MEDICAL HISTORY: Dementia, memory impairment, left partial thyroidectomy, anxiety, schizoaffective disorder. She smells smells in her apartment that are not there. This has been going on chronically. FAMILY HISTORY: Mother negative. EXAM: GENERAL: Well female looks stated age. CARDIOVASCULAR: S1, S2. LUNGS: Clear. GI soft. HEMATOLOGY: Negative Homans. PSYCH: Fair mood and affect. NEUROLOGIC: Alert and orient x2. VITAL SIGNS: Temperature 97.2, pulse 68, respiratory 16 to 18, blood pressure 150s over 70s, O2 97% on room air. EKG sinus rhythm. Sodium was , hemoglobin 13.4, hematocrit 38.5, platelets 200. Sodium 134, potassium 4.1, BUN is 10, creatinine 0.5. ASSESSMENT: 1. Generalized weakness, dehydration, rule out urinary tract infection. 2. Dizziness, unclear etiology. 3. C difficile has been negative. 4. Hyponatremia. Continue to improve with IV fluids. Prognosis guarded due to dementia. She might have some kind of viral syndrome with diarrhea much improved at this time. MMODL / IJN: [id number] /
[2017-12-06 08:29] LABS: Basophils % (A) 1 %; Eosinophils # (A) 0.2 k/uL (0-0.7); Eosinophils % (A) 5 %; HCT 39.4 % (34.0-46.0); HGB 13.4 gm/dL (11.4-16.0); Lymphocytes # (A) 0.6 k/uL (1.0-4.8); Lymphocytes % (A) 14 %; MCH 32.8 pg (25.0-35.0); MCV 96.5 fL (80.0-100.0); Mean Platelet Volume 6.7; Monocytes # (A) 0.2 k/uL (0-1.0); Monocytes % (A) 6 %; Neutrophils # (A) 2.8 k/uL (1.3-7.7); Neutrophils % (A) 73 %; Platelet Count 211 k/uL (150-450); RBC 4.08 m/uL (3.80-5.40); WBC 3.8 k/uL (3.8-10.6)
[2017-12-06] MEDS: MULTIVITAMINS, THERA 1 EACH TAB PO SCH (13:29)
--- NOTE | 2017-12-06 20:29 | PN ---
PROGRESS NOTE SUBJECTIVE: An 82-year-old white female with generalized weakness secondary to dehydration, diarrhea and metabolic abnormalities. Vital signs are reviewed. CARDIOVASCULAR: S1, S2. LUNGS: Transmitted upper airway sounds. GI: Soft, nontender. HEMATOLOGIC: Negative Homans'. ASSESSMENT: 1. Generalized weakness. 2. Metabolic abnormalities. 3. Dehydration, improved. 4. Dementia. Continue with current treatment. Possible discharge home in the next 24-48 hours if all the labs are normal. MMODL / IJN: [id number] /
[2017-12-06] MEDS: DONEPEZIL 10 MG TAB PO SCH (20:42)
[2017-12-07] MEDS: SODIUM CHLORIDE 0.9% 1,000 ML IV SCH ×2 (07:47→20:36)
[2017-12-07] MEDS: MULTIVITAMINS, THERA 1 EACH TAB PO SCH (07:52)
[2017-12-07] MEDS: PRIMIDONE 50 MG TAB PO SCH ×2 (07:52→20:33)
[2017-12-07] MEDS: DONEPEZIL 10 MG TAB PO SCH (20:33)
--- NOTE | 2017-12-07 23:33 | PN ---
PROGRESS NOTE SUBJECTIVE: 82-year-old white female, generalized weakness, and diarrhea is improving. C diff is negative. IV fluids have been given. We discharged to a senior living in the next 24- 48 hours. She wants to go to [facility]. PHYSICAL EXAMINATION: Cardiovascular S1-S2. LUNGS clear. GI soft. HEMATOLOGY: Negative Homans. PSYCH: Alert and oriented x1. ASSESSMENT: 1. Dementia with some paranoid delusions. 2. Generalized weakness secondary to diarrhea and dehydration. Continue with IV fluids. Prognosis guarded. Patient is slowly improving over the last 24 to 48 hours. She will need nursing home care and possibly in a dementia type wing at a senior living. Possibly long-term care will be needed over at hopefully [facility]. RAISSA / SOHEILAN: [id number] /
[2017-12-08] MEDS: PRIMIDONE 50 MG TAB PO SCH ×2 (07:51→20:21)
[2017-12-08] MEDS: SODIUM CHLORIDE 0.9% 1,000 ML IV SCH (07:51)
[2017-12-08] MEDS: MULTIVITAMINS, THERA 1 EACH TAB PO SCH (07:51)
--- NOTE | 2017-12-08 14:50 | P.CN ---
Psychiatric Consult - . Consult date: 12/08/17 Consult:: 12/08/17 14:41 Patient was seen for a psych consult regarding delusions. Apparently her risperidone was stopped by her son after discussing with her doctor because of the black box warning. Following that she apparently started to feel that poisonous gas was coming from under the bed, would keep trash backs between her legs, keep the windows open even in bed that her etc. Patient agrees with these information. Patient's computed tomography scan of the head shows generalized cerebral atrophy. She has a diagnosis of neurocognitive disorder and was on Namenda and Aricept. Her EKG on 11/17/2017 showed sinus rhythm with AV block with ventricular rate of 70 beats per minute. EKG done on 12/05/2017 shows sinus bradycardia with first degree AV block and right ventricular conduction delay. Patient is on Requip and Aricept both of which have side effect of conduction blocks. Patient was admitted because of dizziness and not feeling well on 12/05. Suggestion: Use of Requip and Aricept needs to be reconsidered in view of possible cardiac side effect. Most of the antipsychotic medications do cause bradycardia and conduction problems. However Haldol does not cause bradycardia and make cause tachycardia. You may want to consider in consultation with patient's son about using Haldol 0.5 mg a day to manage delusional thinking. Dose can be adjusted higher up or decreased as necessary.
[2017-12-08] MEDS: DONEPEZIL 10 MG TAB PO SCH (20:21)
--- NOTE | 2017-12-08 22:24 | PN ---
PROGRESS NOTE SUBJECTIVE: An 82-year-old white female with diarrhea, dehydration, improving, altered mental status for which psychiatric consult is pending. BUN is 13, creatinine 0.48, sodium 136, albumin is 3.2, low. Normal white count, hemoglobin. PSYCH: Alert and oriented x1 and having paranoia and confusion, states about smells in seeing things that are not there. CARDIOVASCULAR: S1, S2. GI: Soft. HEMATOLOGY: Negative Homans' ASSESSMENT: 1. Dementia with behavior disturbances, some paranoid ideations. 2. Dehydration and chronic diarrhea, unclear etiology, possible viral infection. 3. Restless legs syndrome. Please see further orders. She wants to go to [facility] for her senior care care. I discussed the case with her son, Murray, [facility]. Please see further orders, await psych consult. RAISSA / VANI: [id number] /
[2017-12-09] MEDS: SODIUM CHLORIDE 0.9% 1,000 ML IV SCH ×2 (02:07→14:47)
[2017-12-09] MEDS: PRIMIDONE 50 MG TAB PO SCH ×2 (09:24→20:04)
[2017-12-09] MEDS: MULTIVITAMINS, THERA 1 EACH TAB PO SCH (14:45)
--- NOTE | 2017-12-09 14:55 | PN ---
PROGRESS NOTE SUBJECTIVE: 82-year-old white female who awaiting psychiatric consult for dementia with behavioral disorders. Awaiting transfer to [facility]. She wants physical therapy ordered, which will be done. She is sitting up in bed. Diarrhea is improved. CARDIOVASCULAR: S1, S2. Lungs clear. GI soft. Hematology negative Homans. PLAN: Await Psychiatric input. Continue current treatment. Follow up in the next 24 to 48 hours for possible discharge to rehab center. MMORALIAL / SOHEILAN: [id number] /
--- NOTE | 2017-12-09 15:43 | CDI ---
Last Revision, June 2017 Documentation Clarification Form Date: 12/09/17 From: Mariely Zhou RN, CCDS Admit Date: 12/08/2017 12:37:00 PM Patient Name: Emily Esqueda Visit Number: [id number] Discharge Date: ATTENTION: The Clinical Documentation Specialists (CDI) and [facility] Coding Staff appreciate your assistance in clarifying documentation. Please respond to the clarification below the line at the bottom and electronically sign. The CDI & [facility] Coding staff will review the response and follow-up if needed. Please note: Queries are made part of the Legal Health Record. If you have any questions, please contact the author of this message via ITS. Dr. Titus Gutierrez Dementia with behavior disturbances, some paranoid ideations, was documented in the H&P and progress notes. Patient history/risk factors: Dementia, Restless legs syndrome, Schizoaffective disorder Clinical indicators: Presented with generalized weakness, profound diarrhea, off -balance, difficulty walking, gradually onset of dizziness for a few days. She is alert and oriented x2 on admission. Vital Signs: 159/76 68 16 97.2 97 % RA Labs: C difficile is negative, BUN 10, CR 0.5, NA+ 134 X ray: CT Brain: Atrophy and mild chronic small vessel ischemia Treatment: IV Fluids Monitor Labs Aricept PO Haldol PO In your professional opinion, can you please specify the type of Dementia if known? Alzheimers disease (specify if early(presenile) or late(senile) onset) Senile (specify if with or without confusional state) Vascular (specify if arteriosclerosis or sequel of cerebrovascular disease) Lewy body Other condition or cause of dementia, please specify Unable to determine Please indicate any behavioral disturbances associated with the condition (such as aggression, combative, benedict, or wandering) Please continue to document in your progress notes and discharge summary in order to capture severity of illness and risk of mortality. Include clinical findings that support your diagnosis. MTDD
[2017-12-09] MEDS: DONEPEZIL 10 MG TAB PO SCH (20:04)
[2017-12-09] MEDS: HALOPERIDOL 0.5 MG TAB PO SCH (20:04)
[2017-12-09 22:30] VITALS: RESP 16
[2017-12-10] MEDS: SODIUM CHLORIDE 0.9% 1,000 ML IV SCH (06:29)
[2017-12-10 06:47] VITALS: BP 110/67; PULSE 70; TEMP 97.8
[2017-12-10] MEDS: HALOPERIDOL 0.5 MG TAB PO SCH (11:11)
[2017-12-10] MEDS: PRIMIDONE 50 MG TAB PO SCH (11:11)
[2017-12-10] MEDS: MULTIVITAMINS, THERA 1 EACH TAB PO SCH (11:11)
--- NOTE | 2017-12-10 12:05 | DS ---
DISCHARGE SUMMARY DISCHARGE MEDICATIONS: 1. Aricept 10 mg daily. 2. Haldol 0.5 b.i.d. 3. Multivitamin daily. 4. Mysoline 50 mg b.i.d. CONDITION: Stable. PROGNOSIS: Guarded. Ambulate as tolerated. DISCHARGE DIAGNOSES: 1. Dementia with behavioral issues. 2. Psychosis. 3. Generalized weakness. 4. Dehydration. 5. Osteoarthritis. HOSPITAL COURSE OF EVENTS: This is a white female who was admitted with dehydration, diarrhea, some confusion; was rehydrated, seen by psychiatrist who recommended Haldol which has been started for issues of seeing things that are not there and smelling spells are not better. She was stabilized from Psychiatry and after rehydration, she will need PT, OT, over rehab center, possibly long-term care. Follow up with Dr. Frances at the shelter. CONDITION: Stable. PROGNOSIS: Guarded. Allergies are negative. Ambulate with Physical Therapy. MMORALIAL / SOHEILAN: [id number] /
--- NOTE | 2017-12-10 14:04 | CDI ---
Last Revision, June 2017 Documentation Clarification Form Date: 12/09/2017 3:44:00 PM From: Mariely Zhou Admit Date: 12/08/2017 12:37:00 PM Patient Name: Emily Esqueda Visit Number: [id number] Discharge Date: ATTENTION: The Clinical Documentation Specialists (CDI) and [facility] Coding Staff appreciate your assistance in clarifying documentation. Please respond to the clarification below the line at the bottom and electronically sign. The CDI & [facility] Coding staff will review the response and follow-up if needed. Please note: Queries are made part of the Legal Health Record. If you have any questions, please contact the author of this message via ITS. Dr. Gutierrez Dementia with behavior disturbances, some paranoid ideations, was documented in the H&P and progress notes. Patient history/risk factors: Dementia, Restless legs syndrome, Schizoaffective disorder Clinical indicators: Presented with generalized weakness, profound diarrhea, off -balance, difficulty walking, gradually onset of dizziness for a few days. She is alert and oriented x2 on admission. Vital Signs: 159/76 68 16 97.2 97 % RA Labs: C difficile is negative, BUN 10, CR 0.5, NA+ 134 X ray: CT Brain: Atrophy and mild chronic small vessel ischemia Treatment: IV Fluids Monitor Labs Aricept PO Haldol PO In your professional opinion, can you please specify the type of Dementia if known? Alzheimers disease (specify if early(presenile) or late(senile) onset) Senile (specify if with or without confusional state) Vascular (specify if arteriosclerosis or sequel of cerebrovascular disease) Lewy body Other condition or cause of dementia, please specify Unable to determine Please indicate any behavioral disturbances associated with the condition (such as aggression, combative, benedict, or wandering) Please continue to document in your progress notes and discharge summary in order to capture severity of illness and risk of mortality. Include clinical findings that support your diagnosis. MTDD
--- NOTE | 2017-12-15 12:21 | DS ---
DISCHARGE SUMMARY Please add into discharge summary: Suspect Alzheimer's dementia with behavioral disturbances. MMODL / IJN: [id number] /
== END 2017-12-10 15:35 | DRG 641 ==
LOC: EC 00:02 → 5MS5E 03:16 → OBSVTOIN 12-08 12:37
PROVIDERS: ADMIT Family Medicine; ATTEND Family Medicine
DX: E87.1 Hypo-osmolality and hyponatremia (principal); F02.81 Dementia in other diseases classified elsewhere, unspecified severity, with behavioral disturbance; E86.0 Dehydration; G30.9 Alzheimer's disease, unspecified; F25.9 Schizoaffective disorder, unspecified; G25.81 Restless legs syndrome; K52.9 Noninfective gastroenteritis and colitis, unspecified; M19.90 Unspecified osteoarthritis, unspecified site; Z79.899 Other long term (current) drug therapy
CPT/HCPCS: 36415; 70450; 71046; 80053; 81001; 83735; 84484; 85025; 87086; 87324; 93005; 94760; 99285

== ENCOUNTER → 2018-09-01 | Outpatient (CLI) | payer MEDICARE, OTHER ==
--- NOTE | 2018-09-01 16:51 | US ---
EXAMINATION TYPE: US thyroid st tissue head/neck DATE OF EXAM: 09/01/2018 COMPARISON: US 2017 CLINICAL HISTORY: E04.1 Thyroid Nodule. Follow up thyroid nodules, left thyroidectomy GLAND SIZE: Right Lobe: 5.9 x 2.6 x 3.5 cm Overall Parenchyma: heterogenous Left Lobe: surgically absent Isthmus Thickness: 0.2 cm NODULES RIGHT: # of nodules measured on right: 3 1. 3.5 X 2.0 x 2.8 cm hypoechoic solid nodule at the mid pole with well-defined margins. This nodul e is wider than tall and shows intranodular vascularity. Prior size: 3.5 x 2.4 x 2.7 cm 2. 1.8 X 1.0 x 1.5 cm hypoechoic solid nodule at the upper pole with well-defined margins. This nodu le is wider than tall and shows intranodular vascularity. Prior size: 1.9 x 1.0 x 1.5 cm 3. 1.1 X 1.0 x 1.1 cm hyperechoic solid nodule at the lower pole with well-defined margins. This nod ule is wider than tall and shows intranodular vascularity. Prior size: 1.3 x 1.1 x 1.3 cm LEFT: surgically absent ISTHMUS: # of nodules measured in the isthmus: 0 Bilateral neck scanned, no evidence of lymphadenopathy. Enlarged right lobe with multiple nodules described above, history of left thyroidectomy. IMPRESSION: Stable thyroid nodules. 2. Post left lobe thyroidectomy
== END | disposition home or self-care (01) ==
LOC: RADUSWWP 13:32
PROVIDERS: ATTEND Otolaryngology
DX: E04.2 Nontoxic multinodular goiter (principal); E89.0 Postprocedural hypothyroidism
CPT/HCPCS: 76536

== ENCOUNTER 2020-07-11 17:20 | Inpatient (IN) | payer MEDICARE, OTHER ==
[2020-07-11] MEDS ORDERED: MORPHINE SULFATE 4 MG/ML SYRINGE IVP STA (18:51)
--- NOTE | 2020-07-11 19:40 | CT ---
EXAMINATION TYPE: CT brain [place] con DATE OF EXAM: 07/11/2020 COMPARISON: 11/17/2017 HISTORY: fall Headache. Neck pain CT DLP: 1307.7 mGycm Automated exposure control for dose reduction was used. There is cerebral cortical atrophy. There is no mass effect nor midline shift. There is no sign of in tracranial hemorrhage. There is mild hypodensity in the periventricular white matter. The calvarium i s intact. Cervical vertebra have normal alignment. Disc spaces are fairly normal. Posterior elements are intact . There is no compression fracture. I see no bony destructive process. There is mild hypertrophic facet arthropathy. Skull base is intact. IMPRESSION: Cerebral atrophy. No acute intracranial abnormality. Minimal chronic small vessel ischemia. No change . Negative CT scan cervical spine. No fracture. No change.
[2020-07-11 19:55] LABS: Appearance,Urine Clear (Clear); Bilirubin,Urine Negative (Negative); Blood,Urine Negative (Negative); Color,Urine Yellow; Glucose,Urine (UA) Negative (Negative); Ketones,Urine Negative (Negative); Leukocyte Esterase,Urine Negative (Negative); Nitrite,Urine Negative (Negative); Protein,Urine Negative (Negative); Specific Gravity,Urine 1.016 (1.001-1.035); Urobilinogen,Urine <2.0 mg/dL (<2.0)
[2020-07-11 19:59] LABS: Basophils # (A) 0.1 k/uL (0-0.2); Basophils % (A) 1 %; Eosinophils # (A) 0.1 k/uL (0-0.7); Eosinophils % (A) 1 %; HCT 37.8 % (34.0-46.0); HGB 13.3 gm/dL (11.4-16.0); Lymphocytes # (A) 0.8 k/uL (1.0-4.8); Lymphocytes % (A) 8 %; MCH 33.1 pg (25.0-35.0); MCHC 35.1 g/dL (31.0-37.0); MCV 94.2 fL (80.0-100.0); Mean Platelet Volume 6.9; Monocytes # (A) 0.5 k/uL (0-1.0); Monocytes % (A) 5 %; Neutrophils # (A) 8.8 k/uL (1.3-7.7); Neutrophils % (A) 86 %; Platelet Count 169 k/uL (150-450); RBC 4.01 m/uL (3.80-5.40); WBC 10.3 k/uL (3.8-10.6)
[2020-07-11 20:03] LABS: ALT 40 U/L (4-34); AST 35 U/L (14-36); African American GFR (CKD) >90 (>60 ml/min/1.73 sqM); Albumin 3.5 g/dL (3.5-5.0); Alkaline Phosphatase 110 U/L (38-126); Anion Gap 3 mmol/L; Blood Urea Nitrogen 24 mg/dL (7-17); Calcium 8.8 mg/dL (8.4-10.2); Carbon Dioxide 31 mmol/L (22-30); Chloride 100 mmol/L (98-107); Glucose 133 mg/dL (74-99); Non-African American GFR(CKD) >90 (>60 ml/min/1.73 sqM); Sodium 134 mmol/L (137-145); Total Bilirubin 0.3 mg/dL (0.2-1.3); Total Protein 6.1 g/dL (6.3-8.2)
--- NOTE | 2020-07-11 20:45 | XR ---
EXAMINATION TYPE: XR chest 1V DATE OF EXAM: 07/11/2020 COMPARISON: 12/05/2017 HISTORY: Dizziness. Short of breath. TECHNIQUE: FINDINGS: There is no heart failure nor confluent pneumonic infiltrate. Costophrenic angles are clear . Thoracic aorta is atheromatous. Bony thorax is intact. IMPRESSION: No active cardiopulmonary disease. Normal heart. No change.
--- NOTE | 2020-07-11 20:46 | XR ---
EXAMINATION TYPE: XR Hip LT and AP Pelvis DATE OF EXAM: 07/11/2020 COMPARISON: NONE HISTORY: Fall. Hip pain. TECHNIQUE: 3 views FINDINGS: The pelvic ring is intact. There is an acute fracture of the left femoral neck. There is no significant displacement. There is mild impaction. There is no dislocation. Sacroiliac joints are in tact. IMPRESSION: Acute mildly impacted femoral neck fracture.
--- NOTE | 2020-07-11 20:48 | XR ---
EXAMINATION TYPE: XR elbow complete bilateral DATE OF EXAM: 07/11/2020 COMPARISON: NONE HISTORY: Fall. Pain. TECHNIQUE: 6 views FINDINGS: I see no fracture nor dislocation. Joint spaces are normal. There are no pathologic calcifi cations. There is no sign of elbow joint effusion. There is some left side posterior soft tissue defo rmity that could relate to laceration. IMPRESSION: Possible left side laceration. No fracture seen.
--- NOTE | 2020-07-11 20:49 | XR ---
EXAMINATION TYPE: XR knee limited LT DATE OF EXAM: 07/11/2020 COMPARISON: NONE HISTORY: Fall. Hip pain TECHNIQUE: 2 views FINDINGS: There is calcification of the medial and lateral menisci. I see no fracture nor dislocation . There is vascular calcification. Joint spaces are fairly normal. IMPRESSION: Chondrocalcinosis. No fracture seen.
[2020-07-11] MEDS ORDERED: NALOXONE 0.4 MG/ML 1 ML VIAL IV PRN (21:12)
--- NOTE | 2020-07-11 21:12 | ED ---
Fall HPI - General Chief Complaint: Fall Stated Complaint: Fall, hip pain Time Seen by Provider: 07/11/20 17:25 Source: EMS Mode of arrival: EMS - History of Present Illness Initial Comments: Patient is an 84-year-old female who presents to the emergency room from [facility]. Apparently the patient had a slip and fall incident in the bathroom. Staff found her tapping on the door. Patient does report that she fell backwards and hit her head. She denies losing consciousness. She sustained some skin tears to her bilateral elbows. Reports to having pain in her left hip. She has a history of dementia and has repetitive questioning. This is normal per the [facility] staff. The patient denies any numbness or tingling in her extremities. Upon hospital arrival the patient is noted to have 100.7 time. The patient denies any recent infections. Denies cough or chest pain. No abdominal pain. Denies any change in her bowel or bladder habits. Denies any ear pain or sore throat. According the patient's blood work she does have exposed Covid at the facility. Rapid Covid performed by them was negative. The patient denies any headaches or visual changes. No other alleviating, precipitating or modifying factors - Related Data Home Medications Medication Instructions Recorded Confirmed Donepezil HCl [Aricept] 10 mg PO HS 11/17/17 07/11/20 Primidone [Mysoline] 100 mg PO BID 11/17/17 07/11/20 Furosemide [Lasix] 20 mg PO DAILY 07/11/20 07/11/20 Loperamide [Imodium] 2 mg PO QID PRN 07/11/20 07/11/20 Memantine HCl [Memantine HCl ER] 28 mg PO HS 07/11/20 07/11/20 Multivitamins, Thera [Multivitamin 1 tab PO DAILY@1200 07/11/20 07/11/20 (formulary)] Potassium Chloride ER [K-Dur 10] 10 meq PO DAILY 07/11/20 07/11/20 Propranolol [Inderal] 20 mg PO BID 07/11/20 07/11/20 haloperidoL [Haldol] 1 mg PO BID 07/11/20 07/11/20 predniSONE 5 mg PO BID 07/11/20 07/11/20 Allergies Allergy/AdvReac Type Severity Reaction Status Date / Time No Known Allergies Allergy Verified 07/11/20 21:45 Review of Systems ROS Statement: Those systems with pertinent positive or pertinent negative responses have been documented in the HPI. ROS Other: All systems not noted in ROS Statement are negative. Past Medical History Past Medical History: Dementia, Memory Impairment Additional Past Medical History / Comment(s): forgetful per son, unsure about some of her health hx., had problem in past w/GI bleeding or rectal bleeding?, recent sleep study done. History of Any Multi-Drug Resistant Organisms: None Reported Additional Past Surgical History / Comment(s): oral surgy on palate. , left p artial thyroidectomy Past Anesthesia/Blood Transfusion Reactions: Unable to Obtain Additional Past Anesthesia/Blood Transfusion Reaction / Comment(s): mom not there w/him-he's unsure, he doesn't know of any problems Past Psychological History: Anxiety, Schizoaffective Disorder Past Alcohol Use History: None Reported Past Drug Use History: None Reported - Past Family History Mother Family Medical History: No Reported History General Exam Limitations: no limitations General appearance: alert, in no apparent distress, other (resting tremor - hx of parkinsons) Head exam: Present: atraumatic, normocephalic, normal inspection Eye exam: Present: normal appearance, PERRL, EOMI. Absent: scleral icterus, conjunctival injection, periorbital swelling ENT exam: Present: normal exam, mucous membranes moist Neck exam: Present: normal inspection, other (c-spine in place). Absent: tenderness, meningismus, lymphadenopathy Respiratory exam: Present: normal lung sounds bilaterally. Absent: respiratory distress, wheezes, rales, rhonchi, stridor Cardiovascular Exam: Present: regular rate, normal rhythm, normal heart sounds. Absent: systolic murmur, diastolic murmur, rubs, gallop, clicks GI/Abdominal exam: Present: soft, normal bowel sounds. Absent: distended, tenderness, guarding, rebound, rigid Extremities exam: Present: other (left leg shortened and rotated. 2+ DP and PT pulses bilaterally. Cap refill <3 seconds b/l. Patient has full normal ROM of the bilaterally upper extremities. Skin tears present over b/l elbows) Back exam: Present: normal inspection Neurological exam: Present: alert, oriented X3, CN II-XII intact Psychiatric exam: Present: normal affect, normal mood Course Vital Signs 07/11/20 07/11/20 07/11/20 17:24 19:31 20:00 Temperature 100.7 F H 100.3 F H Pulse Rate 89 81 81 Respiratory 18 20 20 Rate Blood Pressure 156/92 122/63 118/65 O2 Sat by Pulse 99 96 96 Oximetry Medical Decision Making - Medical Decision Making Upon arrival patient was placed into room 23. A thorough history and physical exam was performed. Peripheral IV is established the patient was given 4 mg of morphine for pain control. Laboratory studies are conducted because of the patient's reported fever. She is sent over for CT of her brain and cervical spine. Laboratory studies are reviewed and demonstrates no urinary tract infection. Coronavirus is negative. CT of the patient's brain and cervical spine demonstrates cerebral atrophy with no acute cranial abnormality. Negative computed tomography scan of the cervical spine without fractures. Chest x-ray and straights no active cardiopulmonary disease. Hip and pelvic x-ray demonstrates an acute mildly impacted femoral neck fracture. Bilateral elbow x- ray demonstrates a left-sided laceration however no fractures. Left knee x-ray demonstrates chondrocalcinosis with no acute fracture. Patient is reevaluated and reports marked improvement in pain and states she is pain-free at this time. C-collar was removed. Patient's wounds were dressed on her elbow. They were cleansed with normal saline. Left skin tear was closed with Steri-Strips. I did discuss the case with Dr. Gutierrez as he does call the emergency department inquiring about his patient. I called and discussed case with rajat ramos who agreed to admit the patient. Patient will be admitted to Dr. Sol sent and made nothing by mouth after midnight. Patient and her son at bedside did agree to the treatment plan and the patient was taken upon stable condition - Lab Data Result diagrams: 07/14/20 05:48 07/12/20 06:44 Lab Results 07/11/20 07/11/20 07/11/20 Range/Units 19:40 19:40 19:40 WBC 10.3 (3.8-10.6) k/uL RBC 4.01 (3.80-5.40) m/uL Hgb 13.3 (11.4-16.0) gm/dL Hct 37.8 (34.0-46.0) % MCV 94.2 (80.0-100.0) fL MCH 33.1 (25.0-35.0) pg MCHC 35.1 (31.0-37.0) g/dL RDW 12.0 (11.5-15.5) % Plt Count 169 (150-450) k/uL MPV 6.9 Neutrophils % 86 % Lymphocytes % 8 % Monocytes % 5 % Eosinophils % 1 % Basophils % 1 % Neutrophils # 8.8 H (1.3-7.7) k/uL Lymphocytes # 0.8 L (1.0-4.8) k/uL Monocytes # 0.5 (0-1.0) k/uL Eosinophils # 0.1 (0-0.7) k/uL Basophils # 0.1 (0-0.2) k/uL Sodium 134 L (137-145) mmol/L Potassium 4.0 (3.5-5.1) mmol/L Chloride 100 (98-107) mmol/L Carbon Dioxide 31 H (22-30) mmol/L Anion Gap 3 mmol/L BUN 24 H (7-17) mg/dL Creatinine 0.51 L (0.52-1.04) mg/dL Est GFR (CKD-EPI)AfAm >90 (>60 ml/min/1.73 sqM) Est GFR (CKD-EPI)NonAf >90 (>60 ml/min/1.73 sqM) Glucose 133 H (74-99) mg/dL Plasma Lactic Acid David (0.7-2.0) mmol/L Calcium 8.8 (8.4-10.2) mg/dL Total Bilirubin 0.3 (0.2-1.3) mg/dL AST 35 (14-36) U/L ALT 40 H (4-34) U/L Alkaline Phosphatase 110 (38-126) U/L Total Protein 6.1 L (6.3-8.2) g/dL Albumin 3.5 (3.5-5.0) g/dL TSH (0.350-5.500) uIU/mL Total T3 (60.0-180.0) ng/dL Urine Color Yellow Urine Appearance Clear (Clear) Urine pH 6.0 (5.0-8.0) Ur Specific [place] 1.016 (1.001-1.035) Urine Protein Negative (Negative) Urine Glucose (UA) Negative (Negative) Urine Ketones Negative (Negative) Urine Blood Negative (Negative) Urine Nitrite Negative (Negative) Urine Bilirubin Negative (Negative) Urine Urobilinogen <2.0 (<2.0) mg/dL Ur Leukocyte Esterase Negative (Negative) Coronavirus (PCR) (Not Detectd) 07/11/20 07/11/20 07/11/20 Range/Units 19:40 19:40 19:40 WBC (3.8-10.6) k/uL RBC (3.80-5.40) m/uL Hgb (11.4-16.0) gm/dL Hct (34.0-46.0) % MCV (80.0-100.0) fL MCH (25.0-35.0) pg MCHC (31.0-37.0) g/dL RDW (11.5-15.5) % Plt Count (150-450) k/uL MPV Neutrophils % % Lymphocytes % % Monocytes % % Eosinophils % % Basophils % % Neutrophils # (1.3-7.7) k/uL Lymphocytes # (1.0-4.8) k/uL Monocytes # (0-1.0) k/uL Eosinophils # (0-0.7) k/uL Basophils # (0-0.2) k/uL Sodium (137-145) mmol/L Potassium (3.5-5.1) mmol/L Chloride (98-107) mmol/L Carbon Dioxide (22-30) mmol/L Anion Gap mmol/L BUN (7-17) mg/dL Creatinine (0.52-1.04) mg/dL Est GFR (CKD-EPI)AfAm (>60 ml/min/1.73 sqM) Est GFR (CKD-EPI)NonAf (>60 ml/min/1.73 sqM) Glucose (74-99) mg/dL Plasma Lactic Acid David 1.6 (0.7-2.0) mmol/L Calcium (8.4-10.2) mg/dL Total Bilirubin (0.2-1.3) mg/dL AST (14-36) U/L ALT (4-34) U/L Alkaline Phosphatase (38-126) U/L Total Protein (6.3-8.2) g/dL Albumin (3.5-5.0) g/dL TSH 1.630 (0.350-5.500) uIU/mL Total T3 (60.0-180.0) ng/dL Urine Color Urine Appearance (Clear) Urine pH (5.0-8.0) Ur Specific [place] (1.001-1.035) Urine Protein (Negative) Urine Glucose (UA) (Negative) Urine Ketones (Negative) Urine Blood (Negative) Urine Nitrite (Negative) Urine Bilirubin (Negative) Urine Urobilinogen (<2.0) mg/dL Ur Leukocyte Esterase (Negative) Coronavirus (PCR) Not Detected (Not Detectd) 07/11/20 Range/Units 19:40 WBC (3.8-10.6) k/uL RBC (3.80-5.40) m/uL Hgb (11.4-16.0) gm/dL Hct (34.0-46.0) % MCV (80.0-100.0) fL MCH (25.0-35.0) pg MCHC (31.0-37.0) g/dL RDW (11.5-15.5) % Plt Count (150-450) k/uL MPV Neutrophils % % Lymphocytes % % Monocytes % % Eosinophils % % Basophils % % Neutrophils # (1.3-7.7) k/uL Lymphocytes # (1.0-4.8) k/uL Monocytes # (0-1.0) k/uL Eosinophils # (0-0.7) k/uL Basophils # (0-0.2) k/uL Sodium (137-145) mmol/L Potassium (3.5-5.1) mmol/L Chloride (98-107) mmol/L Carbon Dioxide (22-30) mmol/L Anion Gap mmol/L BUN (7-17) mg/dL Creatinine (0.52-1.04) mg/dL Est GFR (CKD-EPI)AfAm (>60 ml/min/1.73 sqM) Est GFR (CKD-EPI)NonAf (>60 ml/min/1.73 sqM) Glucose (74-99) mg/dL Plasma Lactic Acid David (0.7-2.0) mmol/L Calcium (8.4-10.2) mg/dL Total Bilirubin (0.2-1.3) mg/dL AST (14-36) U/L ALT (4-34) U/L Alkaline Phosphatase (38-126) U/L Total Protein (6.3-8.2) g/dL Albumin (3.5-5.0) g/dL TSH (0.350-5.500) uIU/mL Total T3 125.0 (60.0-180.0) ng/dL Urine Color Urine Appearance (Clear) Urine pH (5.0-8.0) Ur Specific [place] (1.001-1.035) Urine Protein (Negative) Urine Glucose (UA) (Negative) Urine Ketones (Negative) Urine Blood (Negative) Urine Nitrite (Negative) Urine Bilirubin (Negative) Urine Urobilinogen (<2.0) mg/dL Ur Leukocyte Esterase (Negative) Coronavirus (PCR) (Not Detectd) - EKG Data EKG Comments: EKG demonstrates normal sinus rhythm with a ventricular rate of 86. NJ interval 174. QRS 1:30. QTC of 454. Right bundle branch block. No acute ST segment elevations or depressions Disposition Clinical Impression: Fall, Closed left hip fracture Disposition: ADMITTED IP TO THIS [facility] Condition: Stable Is patient prescribed a controlled substance at d/c from ED?: No Decision to Admit Reason: Admit from EC Decision Date: 07/11/20 Decision Time: 21:12
[2020-07-11] MEDS: SODIUM CHLORIDE 0.9% 1,000 ML IV SCH (21:59)
[2020-07-11] MEDS ORDERED: LOPERAMIDE 2 MG CAP PO PRN (22:15)
[2020-07-11] MEDS ORDERED: cefTRIAXone IN SWFI 1,000 MG/10 ML SYRINGE IVP STA (22:25)
[2020-07-12] MEDS: MORPHINE SULFATE 4 MG/ML SYRINGE IV PRN ×3 (00:22→20:29)
[2020-07-12] MEDS: MEMANTINE 10 MG TAB PO SCH ×3 (00:26→20:26)
[2020-07-12] MEDS: DONEPEZIL 10 MG TAB PO SCH ×2 (00:26→20:26)
[2020-07-12] MEDS: predniSONE 5 MG TAB PO SCH ×3 (00:26→20:28)
[2020-07-12] MEDS: PRIMIDONE 50 MG TAB PO SCH ×3 (00:26→20:25)
[2020-07-12] MEDS: PROPRANOLOL 20 MG TAB PO SCH ×3 (00:26→20:28)
[2020-07-12 07:15] LABS: Basophils % (A) 0 %; Eosinophils % (A) 1 %; HCT 33.7 % (34.0-46.0); HGB 11.5 gm/dL (11.4-16.0); Lymphocytes # (A) 0.6 k/uL (1.0-4.8); Lymphocytes % (A) 8 %; MCH 32.2 pg (25.0-35.0); MCHC 34.1 g/dL (31.0-37.0); MCV 94.6 fL (80.0-100.0); Mean Platelet Volume 7.1; Monocytes # (A) 0.4 k/uL (0-1.0); Monocytes % (A) 5 %; Neutrophils # (A) 6.2 k/uL (1.3-7.7); Neutrophils % (A) 86 %; Platelet Count 152 k/uL (150-450); RBC 3.56 m/uL (3.80-5.40); RDW 11.9 % (11.5-15.5); WBC 7.2 k/uL (3.8-10.6)
[2020-07-12 07:21] LABS: African American GFR (CKD) >90 (>60 ml/min/1.73 sqM); Anion Gap -1 mmol/L; Blood Urea Nitrogen 21 mg/dL (7-17); Calcium 8.4 mg/dL (8.4-10.2); Carbon Dioxide 29 mmol/L (22-30); Chloride 105 mmol/L (98-107); Glucose 145 mg/dL (74-99); Non-African American GFR(CKD) >90 (>60 ml/min/1.73 sqM); Potassium 4.3 mmol/L (3.5-5.1); Sodium 133 mmol/L (137-145)
[2020-07-12] MEDS: haloperidoL 1 MG TAB PO SCH ×2 (08:20→20:28)
[2020-07-12] MEDS: FUROSEMIDE 20 MG TAB PO SCH (08:20)
[2020-07-12] MEDS: POTASSIUM CHLORIDE ER 10 MEQ TAB.ER.PRT PO SCH (08:21)
[2020-07-12] MEDS: MULTIVITAMINS, THERA 1 EACH TAB PO SCH (08:21)
--- NOTE | 2020-07-12 11:02 | P.HPOR ---
History of Present Illness H&P Date: 07/12/20 Chief Complaint: L hip pain 84-year-old female presents to emergency department status post fall from standing onto her left hip. Patient is somewhat of a poor historian but states that she fell yesterday under her left hip causing immediate pain and inability to ambulate. She denies any numbness or tingling denies any weakness but states that she cannot walk secondary to her hip pain and cannot move it secondary to pain. She states no loss of consciousness or blunt head trauma with the fall She denies any fevers chills or some breath or chest pain at this time. Review of Systems 14 points review of systems completed and as stated in HPI, all other systems reviewed are negative. Past Medical History Past Medical History: Dementia, Memory Impairment Additional Past Medical History / Comment(s): forgetful per son, unsure about some of her health hx., had problem in past w/GI bleeding or rectal bleeding?, recent sleep study done. History of Any Multi-Drug Resistant Organisms: None Reported Additional Past Surgical History / Comment(s): oral surgy on palate. , left partial thyroidectomy Past Anesthesia/Blood Transfusion Reactions: Unable to Obtain Additional Past Anesthesia/Blood Transfusion Reaction / Comment(s): mom not there w/him-he's unsure, he doesn't know of any problems Past Psychological History: Anxiety, Schizoaffective Disorder Past Alcohol Use History: None Reported Past Drug Use History: None Reported - Past Family History Mother Family Medical History: No Reported History Medications and Allergies Home Medications Medication Instructions Recorded Confirmed Type Donepezil HCl [Aricept] 10 mg PO HS 11/17/17 07/11/20 History Primidone [Mysoline] 100 mg PO BID 11/17/17 07/11/20 History Furosemide [Lasix] 20 mg PO DAILY 07/11/20 07/11/20 History Loperamide [Imodium] 2 mg PO QID PRN 07/11/20 07/11/20 History Memantine HCl [Memantine HCl ER] 28 mg PO HS 07/11/20 07/11/20 History Multivitamins, Thera [Multivitamin 1 tab PO DAILY@1200 07/11/20 07/11/20 History (formulary)] Potassium Chloride ER [K-Dur 10] 10 meq PO DAILY 07/11/20 07/11/20 History Propranolol [Inderal] 20 mg PO BID 07/11/20 07/11/20 History haloperidoL [Haldol] 1 mg PO BID 07/11/20 07/11/20 History predniSONE 5 mg PO BID 07/11/20 07/11/20 History Allergies Allergy/AdvReac Type Severity Reaction Status Date / Time No Known Allergies Allergy Verified 07/11/20 21:45 Physical Examination Osteopathic Statement: *. No significant issues noted on an osteopathic structural exam other than those noted in the History and Physical/Consult. Generally the patient is alert and oriented 3 appears well-nourished well- hydrated is in no acute distress. She does not appear septic. She reports pain in her left hip. She has tenderness to palpation of the greater trochanteric region sure she has painful log roll of the left hip. No pain with logroll of the right hip. Patient has pain with any motion of the left leg. She is able to move her right leg without any pain. She has no pain in her ankle knee or hip on the right. She has no pain in her ankle or knee on the left but exquisite pain with any motion of the left hip. She has full painless range of motion of her upper extremities in the shoulders elbows and wrists. There is a small amount of right elbow skin tear which is noted. There is no pain with motion felt. There is pain and crepitance with left hip motion. Patient is intact to light touch sensation in the L2 S1 nerve distribution. She has 5 out of 5 dorsiflexion plantar flexion EHL FHL bilaterally. 2/4 distal pulses in bilateral lower extremities and upper extremity's. Compartments are soft and compressible and Refill is brisk at less than 2 seconds all toes. Cranial nerves II through XII are grossly intact. Results AP pelvis as well as AP lateral left hip demonstrate a left hip femoral neck f racture completely displaced and in varus. The remaining of the pelvis fails to demonstrate any fractures or dislocations. X-ray of the left elbow is also reviewed and fell 7 demonstrates any fracture or dislocation there is RC arthritic changes. However there is no fracture dislocation. CT of the brain and C-spine is reviewed. There is spondylosis of the C-spine however there are no fractures or dislocations C1 2 joint appears stable and no evidence of any other lesions. X-ray of the left knee is also obtained and reviewed demonstrates mild to moderate osteophytic changes no other fractures or dislocations noted no lesions. CT the pelvis is reviewed. There are no other fractures or dislocations within the pelvis noted the after mentioned femoral neck fracture is visualized which i s complete and displaced in varus. CT of the chest is pending - Labs Labs: Abnormal Lab Results - Last 24 Hours (Table) 07/11/20 07/11/20 07/12/20 Range/Units 19:40 19:40 06:44 RBC 3.56 L (3.80-5.40) m/uL Hct 33.7 L (34.0-46.0) % Neutrophils # 8.8 H (1.3-7.7) k/uL Lymphocytes # 0.8 L 0.6 L (1.0-4.8) k/uL Sodium 134 L (137-145) mmol/L Carbon Dioxide 31 H (22-30) mmol/L BUN 24 H (7-17) mg/dL Creatinine 0.51 L (0.52-1.04) mg/dL Glucose 133 H (74-99) mg/dL ALT 40 H (4-34) U/L Total Protein 6.1 L (6.3-8.2) g/dL 07/12/20 Range/Units 06:44 RBC (3.80-5.40) m/uL Hct (34.0-46.0) % Neutrophils # (1.3-7.7) k/uL Lymphocytes # (1.0-4.8) k/uL Sodium 133 L (137-145) mmol/L Carbon Dioxide (22-30) mmol/L BUN 21 H (7-17) mg/dL Creatinine 0.47 L (0.52-1.04) mg/dL Glucose 145 H (74-99) mg/dL ALT (4-34) U/L Total Protein (6.3-8.2) g/dL H & H 07/11/20 07/12/20 Range/Units 19:40 06:44 Hgb 13.3 11.5 (11.4-16.0) gm/dL Hct 37.8 33.7 L (34.0-46.0) % Result Diagrams: 07/12/20 06:44 07/12/20 06:44 Assessment and Plan Assessment: 84-year-old female status post fall from standing 1. Left femoral neck fracture, complete, displaced 2. Left elbow contusion, no fracture 3. Left knee contusion, no fracture 4. Complex medical patient 5. Status post fall from standing Plan: - Medical clearance for OR today for left hip hemiarthroplasty - Nothing by mouth - Hold heparin whole anticoagulants - Pain control as needed - Gerber catheter - Nonweightbearing left lower extremity - GI prophylaxis - Trend labs
--- NOTE | 2020-07-12 11:23 | CT ---
EXAMINATION TYPE: CT chest wo con DATE OF EXAM: 07/12/2020 COMPARISON: 11/17/2017 HISTORY: 84-year-old female with cough, CAP TECHNIQUE: Contiguous axial scanning of the chest without IV contrast. Coronal and sagittal reconstru ctions performed. CT DLP: 232.5 mGycm Automated exposure control for dose reduction was used. FINDINGS: Heterogeneous 3.6 cm nodule of the right lobe of the thyroid gland with some calcifications within (s agittal image 52). We note a prior thyroid ultrasound where nodule measuring up to 3.5 cm. Ongoing ul trasound follow-up as clinically indicated. Heart normal size without pericardial effusion. Extensive three-vessel coronary artery calcifications are present. Borderline ectatic ascending aorta 3.6 cm. Mild atherosclerotic arch calcifications with conventional vessel branching anatomy. No thoracic lymphadenopathy by CT size criteria. Dependent atelectasis. Biapical pleural-parenchymal scarring. Posterior basilar opacity on the left i s asymmetrically greater in the right. Atelectasis is suspected. Otherwise, no consolidation or pleural effusion. Visualized upper abdomen shows no gross abnormally. Bones: Mild degenerative disc disease midthoracic spine. IMPRESSION: 1. CAD. 2. PROMINENT DEPENDENT ATELECTASIS IN THE LOWER LUNGS. OPACITY ON THE LEFT IS ASYMMETRICALLY GREATER. ATELECTASIS REMAINS FAVORED OVER AN EARLY INFILTRATE/PNEUMONIA. 3. NO NODULE OF THE RIGHT LOBE OF THE THYROID GLAND. 3.6 CM. PRIOR 09/01/2018 THYROID ULTRASOUND DEMON STRATED A 3.5 CM NODULE. ONGOING ULTRASOUND FOLLOW-UP CLINICALLY INDICATED.
--- NOTE | 2020-07-12 11:29 | CT ---
EXAMINATION TYPE: CT pelvis wo con DATE OF EXAM: 07/12/2020 COMPARISON: Radiograph 07/11/2020 HISTORY: 84-year-old female for evaluation for left hip fracture TECHNIQUE: Contiguous axial scanning of the pelvis without IV contrast. Coronal and sagittal reconstr uctions performed. CT DLP: 224.7 mGycm Automated exposure control for dose reduction was used. FINDINGS: Osteopenia. Gerber catheter is in place. Pelvic phlebolith. Uterus surgically absent. Degenerative disc disease and facet arthropathy lower lumbar spine. Mild degenerative change at both hips. There is a transcervical femoral neck fracture on the left with impaction and nearly 60 degrees of an terior apex angulation. Is mild comminution inferiorly with a sliver of bone measuring 1.6 cm long. No additional acute fractures identified likely osteopenia. IMPRESSION: IMPACTED TRANSCERVICAL FEMORAL NECK FRACTURE ON THE LEFT WITH NEARLY 60 DEGREES OF ANTERIOR APEX ANGU LATION. MINIMAL COMMINUTION INFERIORLY WITH A 1.6 CM LONG SLIVER OF BONE. MARKED OSTEOPENIA.
--- NOTE | 2020-07-12 12:34 | CONS ---
CONSULTATION An 84-year-old white female who presents to the emergency room. At [facility] she fell in her bathroom. She was lying on the floor tapping at the door. She has multiple skin tears to bilateral elbows switched over sewed up in the ER. She has history of dementia and severe essential tremor and some dementia with some psychosis. She also had a temperature of a 100.7 on admission. Despite any symptoms, she is asymptomatic. She is COVID negative on multiple tests on admission here. HOME MEDICINES: She takes Aricept 10 mg daily, Mysoline 100 mg b.i.d., Lasix 20 daily, Imodium 2 mg q.i.d., memantine 28 mg q.h.s., multivitamin daily, potassium chloride 10 mEq daily, Inderal 20 mg b.i.d., Haldol 1 mg b.i.d., prednisone 5 mg b.i.d. ALLERGIES: No known drug allergies. REVIEW OF SYSTEMS: A 14-point review of system. In the past 2-3 months, she has had swelling of her upper extremities, switched to low-dose Lasix has been ordered. Will run maybe an echo on her heart while she is here. ALLERGIES: No known drug allergies. Otherwise, multiple aspirations, pain and falls. PAST MEDICAL HISTORY: Otherwise, multiple aspirations, pain and falls. Severe essential tremor, dementia, memory impairment. Anxiety, schizoaffective disorder. PAST SURGICAL HISTORY: Left partial thyroidectomy. FAMILY HISTORY: Mother negative. PHYSICAL EXAMINATION: Vital signs, temp a 100.7 to 100.3, pulse rate 80 to 81, blood pressure 118 to 156 over 60s, respiratory 18 to 20. Patient is very thin. She has large amount of essential tremor in her face, arms and hands and facial movements. Cardiovascular S1-S2. Lungs are clear. Hematology is 1 to 2+ edema. White count 10.3, hemoglobin 13.3, BUN 24, creatinine 0.51, carbon dioxide is 31, BUN 24, creatinine is 0.51. UA is negative. EKG shows sinus rhythm, right bundle branch block. ASSESSMENT: Fall, closed left hip fracture, dementia, delirium, diastolic congestive heart failure . Will order an echo. She has an impacted fracture of the femur. Possible surgery will be needed. No other fractures are seen. Continue current home medications. As far as her fever goes, we will monitor her for fever. She has been afebrile since getting to the floor. There is no sign of any infection. She is 93% on room air. We may have to do a CT scan of her chest looking for pneumonia due to hypoxemia. She has a history of COPD but will do a CT scan and echo just to be safe. MMODL / IJN: [id number] /
[2020-07-12] MEDS ORDERED: IV FLUID CONTINUATION 1,000 ML IV ONE (13:25)
--- NOTE | 2020-07-12 13:35 | P.PN ---
Progress Note - Text Progress Note Date: 07/12/20 Orthopedic Surgery Risk Review Emily Esqueda is a 84-year-old female presenting for evaluation of sudden onset sided hip pain, inability to ambulate after fall from standing. It was my pleasure to have seen and examined Emily Esqueda. In our visit today we have had a chance to go over subjective complaints, physical examination findings and treatments including the natural course history without intervention and various interventional options. Her imaging demonstrates left femoral neck fracture that is complete and displaced. On physical exam, Emily Esqueda demonstrates pain with motion of left hip, which is NV intact at this time. I have explained to the patient that this fracture needs stabilization. Based on the patients imaging, physical exam, and the rapid progression and disabling nature of her symptoms, at this time I recommend surgery in the form or a: Left hip hemiarthroplasty I discussed the risk and benefits of this procedure at length with Emily Esqueda and her son Murray over the phone. Questions were invited and answered, and the patient wishes to proceed as outlined below. Currently, I am recommendin. Left hip hemiarthroplasty 2. Review of surgical risks and benefits as well as an educational packet on the proposed surgical procedure. Risks: All surgical procedures come with inherent risks, including those related to positioning, anesthesia, intraoperative findings, and postoperative complications. It is important to understand that surgery does not come with any guarantee of a successful outcome as complications and adverse events are always possible. The patient was given a handout discussing the surgical procedure and risks associated with the intervention, both of which were discussed with the patient. These risks include but are not limited to the following: - Experiencing same, different or even worse symptoms compared to before surgery. - Requiring further surgery or other forms of treatment presently or at some time in the future . - On an extreme but fortunately relatively rare basis severe complication such as blindness, stroke, heart attack, temporary and/or permanent nerve injury, paralysis, coma, or may occur, sometimes without known explanation. - Surgical complications may include but are not limited to risk of infection, fluid accumulation in the surgical dissection site, including a seroma or hematoma, that requires additional surgery, wound drainage, bleeding, new numbness or weakness, vision changes/loss, spinal fluid leakage, non-healing and/or infected incision, headaches, difficulty or inability to swallow, hoarseness, hemopneumothorax, pneumothorax, injury to nerves, spinal cord, blood vessels, lymphatics or other vital organs (i.e., bowel injury, injury to the great vessels); heterotopic bone formation; complications related to the hardware such as screws, rods, including misplaced hardware, device failure, hardware fracture/breakage, or hardware loosening; retained surgical instrumentations or devices and the need for further surgery. - Medical risks of the planned surgery include but are not limited to generalized Infections to the whole body or local areas outside of the surgical site (sepsis), heart attack, bleeding, anaphylaxis, meningitis, seizure, epilepsy, hearing loss, burn whelan, laceration of the head or other areas of the body, bruising, hypersensitivity of the skin, bladder over distension; allergic reaction; shoulder injury related to positioning; fat, blood and air clots to other areas of the body like heart, lungs, brain; failure of internal organs such as lungs, kidneys, liver and excessive bleeding. If blood transfusions are necessary, note that transfusions may cause intolerance reactions such as anaphylaxis or other complex reactions. Despite best efforts, the results of surgery might not heal in terms of bone, soft tissues such as skin, fascia, ligaments, and joints. [facility] is an educational center that serves as a training facility for physician assistants, nurses, orthopedic residents and fellows. Residents are physicians who are completing their surgical intensive training following medical school. They assist in the operating room with direct supervision of the attending surgeons. [place] are surgeons who have completed their training and eligible for board certification. They have opted for an elective year of more specialized training in their field. They assist in the operating room under the supervision of the attending surgeons. Physician assistants are medically trained surgical providers who function in the outpatient, inpatient, and operating room setting under the direct supervision of the attending surgeon. [facility] has multiple operating rooms with single and overlapping rooms running daily. They currently function under the required guidelines as produced by the [facility] Finance Committee with regards to the overlapping rooms and will continue to comply with changes to this policy as they occur. The requirements include and are complied with as follows: (1) the critical portions of the overlapping rooms will not occur at the same time, (2) the attending physician will be physically present during the critical portions of the procedure and immediately available during the entire case, and (3) a back-up attending is designated should the primary attending not be immediately available. The patient has had a chance to review all the listed information, has been given print outs detailing this information, and has had all his/her questions answered to their satisfaction. It was my pleasure to have seen and examined Emily Esqueda. In our visit today we have had a chance to go over my understanding of our patient's current condition, the natural course history without intervention and various interventional options. Questions were invited and answered, and the patient wishes to proceed as outlined above. I have seen and examined the patient for 25 minutes and we have spent more than 50% of the time in repeat and detailed counseling about the patient's condition, its natural course history with out and as much as can be predicted with surgery and re-review of various surgical treatment options. In conclusion, Emily Esqueda and her son Murray requested we proceed with the above suggested surgery and are willing to accept risks and limitations of the suggested surgery as nature of the disease process and our best attempts at treatment for the condition. Thank you again for allowing us to be part of your patient's care. Please don't hesitate to contact me if you have any further questions. Signed and authenticated by: Candelario [facility] [address] [address]
[2020-07-12] MEDS ORDERED: KETAMINE 10 MG/ML 20 ML VIAL ONE (13:58)
[2020-07-12] MEDS ORDERED: fentaNYL (PF) 50 MCG/ML 2 ML AMP ONE (13:58)
[2020-07-12] MEDS ORDERED: SODIUM CHLORIDE 0.9% 50 ML with ceFAZolin 1,000 MG IV ONE ×2 (14:20)
[2020-07-12] MEDS ORDERED: ceFAZolin 3,000 MG in SODIUM CHLORIDE 0.9% IRRIGATIO 3,000 ML IRRIGATION ONE (14:35)
[2020-07-12] MEDS ORDERED: NALOXONE 0.4 MG/ML 1 ML VIAL IV PRN (16:10)
[2020-07-12] MEDS ORDERED: MORPHINE SULFATE 2 MG/ML SYRINGE IV PRN (16:10)
[2020-07-12] MEDS ORDERED: ONDANSETRON 4 MG/2 ML VIAL IVP PRN (16:10)
[2020-07-12] MEDS ORDERED: HYDROmorphone 0.5 MG/0.5 ML SYRINGE IVP ONE (16:44)
--- NOTE | 2020-07-12 16:48 | XR ---
EXAMINATION TYPE: XR Hip Limited LT DATE OF EXAM: 07/12/2020 COMPARISON: 07/11/2020 HISTORY: Postop hip pain TECHNIQUE: Single view FINDINGS: There is left hip prosthesis. Components appear in anatomic position. IMPRESSION: No complicating process seen.
[2020-07-12] MEDS: SODIUM CHLORIDE 0.9% 1,000 ML IV SCH ×2 (17:04→20:29)
[2020-07-12] MEDS: traMADol 50 MG TAB PO SCH ×2 (17:46→20:26)
--- NOTE | 2020-07-12 18:37 | ECHOF ---
Referral Reason:chf MEASUREMENTS -------- HEIGHT: 162.6 cm WEIGHT: 54.4 kg BP: 111/61 IVSd: 0.9 cm (0.6 - 1.1) LVIDd: 3.1 cm (3.9 - 5.3) LVPWd: 1.1 cm (0.6 - 1.1) IVSs: 1.7 cm LVIDs: 1.4 cm LVPWs: 1.5 cm RVIDd: 2.4 cm (< 3.3) LAESV Index (A-L): 16.00 ml/m Ao Diam: 2.4 cm (2.0 - 3.7) AV Cusp: 1.5 cm (1.5 - 2.6) EPSS: 0.1 cm MV E Chris: 1.03 m/s MV DecT: 169 ms MV A Chrsi: 1.03 m/s MV E/A Ratio: 1.00 AR PHT: 587 ms RAP: 5.00 mmHg RVSP: 36.84 mmHg MV EF SLOPE: 110.47 mm/s (70 - 150) MV EXCURSION: 13.19 mm (> 18.000) FINDINGS -------- Sinus rhythm. This was a technically difficult study with suboptimal apical views. The left ventricular size is normal. Left ventricular wall thickness is normal. Overall left vent ricular systolic function is normal with, an EF between 55 - 60 %. The right ventricle is normal in size. Normal LA size by volume 22+/-6 ml/m2. The right atrial size is normal. 5.0mg of Lumason was utilized for enhancement of images Interatrial and interventricular septum intact. The aortic valve is trileaflet and appears structurally normal. There is mild aortic regurgitation. There is no evidence of aortic stenosis. Mild mitral regurgitation is present. Mild tricuspid regurgitation present. There is mild pulmonary hypertension. The right ventricular systolic pressure, as measured by Doppler, is 36.84mmHg. Trace/mild (physiologic) pulmonic regurgitation. The aortic root size is normal. IVC Not well visulized. There is no pericardial effusion. CONCLUSIONS -------- 1. The left ventricular size is normal. 2. Left ventricular wall thickness is normal. 3. Overall left ventricular systolic function is normal with, an EF between 55 - 60 %. 4. There is mild aortic regurgitation. 5. Mild mitral regurgitation is present. 6. Mild tricuspid regurgitation present. 7. There is mild pulmonary hypertension. 8. The right ventricular systolic pressure, as measured by Doppler, is 36.84mmHg. 9. Trace/mild (physiologic) pulmonic regurgitation. MINING HELPER: Deisy Messer RDCS
[2020-07-12 18:46] LABS: Basophils % (A) 0 %; Eosinophils # (A) 0.1 k/uL (0-0.7); Eosinophils % (A) 1 %; HCT 34.2 % (34.0-46.0); HGB 11.3 gm/dL (11.4-16.0); Lymphocytes # (A) 0.5 k/uL (1.0-4.8); Lymphocytes % (A) 5 %; MCH 32.9 pg (25.0-35.0); MCV 99.5 fL (80.0-100.0); Mean Platelet Volume 6.9; Monocytes # (A) 0.5 k/uL (0-1.0); Monocytes % (A) 5 %; Neutrophils # (A) 9.7 k/uL (1.3-7.7); Neutrophils % (A) 89 %; Platelet Count 144 k/uL (150-450); RBC 3.44 m/uL (3.80-5.40); RDW 12.5 % (11.5-15.5); WBC 10.9 k/uL (3.8-10.6)
[2020-07-13] MEDS: MORPHINE SULFATE 4 MG/ML SYRINGE IV PRN ×2 (00:23→04:52)
[2020-07-13] MEDS: PROPRANOLOL 20 MG TAB PO SCH ×2 (08:36→20:11)
[2020-07-13] MEDS: MEMANTINE 10 MG TAB PO SCH ×2 (08:40→20:16)
[2020-07-13] MEDS: predniSONE 5 MG TAB PO SCH ×2 (08:40→20:16)
[2020-07-13] MEDS: FUROSEMIDE 20 MG TAB PO SCH (08:40)
[2020-07-13] MEDS: PRIMIDONE 50 MG TAB PO SCH ×2 (08:40→20:16)
[2020-07-13] MEDS: haloperidoL 1 MG TAB PO SCH ×2 (08:40→20:16)
[2020-07-13] MEDS: traMADol 50 MG TAB PO SCH ×4 (08:41→21:26)
[2020-07-13] MEDS: POTASSIUM CHLORIDE ER 10 MEQ TAB.ER.PRT PO SCH (08:41)
[2020-07-13] MEDS ORDERED: ENOXAPARIN 30 MG/0.3 ML SYRINGE SQ SCH (09:00)
--- NOTE | 2020-07-13 11:38 | P.PN ---
Subjective Progress Note Date: 07/13/20 Principal diagnosis: Status post left hip hemiarthroplasty Patient was examined today at bedside, Dr. Moreau was available also along with the nursing staff. Increasing confusion was noted through the night and into this morning. The patient did receive a dose of morphine, her blood pressure also did drop quite a bit. She is only received tramadol and Tylenol at this point. She did pull out her IV overnight. Today bedside, she is resting in her hospital chair, her mental status significantly confused, she does recognize either myself or Dr. Cunningham. She states that she is having generalized discomfort throughout the left hip, this is mainly with weightbearing. She notes improvement in the pain compared to yesterday prior to surgery. She currently has no headaches, lightheadedness, chest pain or shortness of breath, fever or chills, abdominal discomfort, numbness or tingling in the bilateral lower extremities. Objective - Vital Signs Vital signs: Vital Signs Temp 99.3 F 07/13/20 07:44 Pulse 86 07/13/20 07:44 Resp 16 07/13/20 07:44 BP 92/55 07/13/20 07:44 Pulse Ox 96 07/13/20 07:44 Intake & Output 07/12/20 07/13/20 07/13/20 18:59 06:59 18:59 Intake Total 1676 Output Total 600 500 400 Balance 1076 -500 -400 Intake: IV 1051 Intake, IV Titration 525 Amount Sodium Chloride 0.9% 1, 525 000 ml @ 75 mls/hr IV . [id number] [facility] Rx#:[id number] Oral 100 Output: Urine 400 500 400 Estimated Blood Loss 200 Other: Voiding Method Indwelling Catheter Indwelling Catheter Indwelling Catheter - Exam Left lower extremity: Postoperative bandages in good position and condition, there is no active drainage visualized. There is mild soft tissue swelling and ecchymosis surrounding the left proximal femur Logroll maneuver reproduces some discomfort in the hip, much improved since prior to surgery Hip flexion was not assessed, she is able to extend and flex the knee with minimal difficulty, plantarflexion, dorsiflexion, EHL, FHL are intact. Strength testing was not assessed with range of motion of the left lower extremity She is minimal tenderness of the proximal left femur, she's nontender surrounding the knee, lower leg, foot and ankle Calf is soft, no tenderness with palpation Sensory exam to light touch throughout the extremity is intact, dorsalis pedis pulses 2+. - Labs CBC & Chem 7: 07/12/20 18:31 07/12/20 06:44 Labs: Abnormal Lab Results - Last 24 Hours (Table) 07/12/20 Range/Units 18:31 WBC 10.9 H (3.8-10.6) k/uL RBC 3.44 L (3.80-5.40) m/uL Hgb 11.3 L (11.4-16.0) gm/dL Plt Count 144 L (150-450) k/uL Neutrophils # 9.7 H (1.3-7.7) k/uL Lymphocytes # 0.5 L (1.0-4.8) k/uL Assessment and Plan Assessment: Status post left hip hemiarthroplasty Plan: Pain control, avoid IV narcotics and heavier oral narcotics. Okay to use Tylenol and tramadol Wound care instructions, continue use of the Opteform dressing. This will likely be removed prior to discharge by myself Ice and elevate the left lower extremity Utilize hip abductor pillow while in bed Weight-bear as tolerated with walker and assistance of physical therapy DVT prophylaxis, continue subcu medication Internal medicine recommendations We'll check CBC on 07/14/2020 Plan for discharge to subacute rehab in the next few days Time with Patient: Less than 30
--- NOTE | 2020-07-13 11:48 | P.OP ---
Date of Procedure: 07/12/20 Preoperative Diagnosis: 84-year-old female status post fall from standing 1. Left femoral neck fracture, complete, displaced 2. Left elbow contusion, no fracture 3. Left knee contusion, no fracture 4. Complex medical patient 5. Status post fall from standing Postoperative Diagnosis: 84-year-old female status post fall from standing 1. Left femoral neck fracture, complete, displaced 2. Left elbow contusion, no fracture 3. Left knee contusion, no fracture 4. Complex medical patient 5. Status post fall from standing Procedure(s) Performed: 1. Left Hip Hemiarthroplasty Implants: Depuy Corail Hemiarthroplasty with bipolar head, press-fit 14 stem short neck 47 head +1.5 mm 1.5 mm neck 135 deg Anesthesia: local, spinal Surgeon: Candelario Moreau Char Puller #1: Serjio Biggs (LALY Helm was present for the entire case and was necessary due to the complexity of the case) Estimated Blood Loss (ml): 200 IV fluids (ml): 700 Urine output (ml): 100 Pathology: none sent Condition: stable Disposition: PACU Indications for Procedure: 84-year-old female presents to emergency department status post fall from standing onto her left hip. Patient is somewhat of a poor historian but states that she fell yesterday under her left hip causing immediate pain and inability to ambulate. She denies any numbness or tingling denies any weakness but states that she cannot walk secondary to her hip pain and cannot move it secondary to pain. She states no loss of consciousness or blunt head trauma with the fall She denies any fevers chills or some breath or chest pain at this time. Operative Findings: Vertical femoral neck fracture with mild medial calcar involvement, no extension into trochanteric region, no extention into lesser region. Description of Procedure: The patient was seen and examined in the preoperative area. All preoperative protocols were followed. Informed consent was obtained risks and benefits of the procedure were discussed at length. Risks including bleeding infection damage to the surrounding tissue and risk of reoperation were discussed with the patient. Risk of anesthesia up to and including was a discussed with the patient. These are outlined in the risk reviewed. They were willing to accept these risks and all of the risks of surgery. The patient was given a weight- based dose of antibiotics in the form of 1 g of Ancef IVPB 1. The patient was seen and evaluated by the anesthesia team who deemed them fit for surgery. The site was marked, the patient was willing to proceed with the procedure. The patient was transferred to the operative suite by the Department of anesthesia. There were then drifted off to sleep by the department of [facility] and [facility] and spinal anesthesia with local sedation anesthesia was used. Once adequate anesthesia had been obtained the patient was carefully transferred to the operative bed. All bony prominences were padded accordingly. SCDs were placed on the nonoperative lower extremities. Arms were well padded. Left lower extremity was exposed 1010s were placed around the area of incision incision was marked with a skin marker. Nonoperative leg was secured to the table and padded with eggcrate as well as blankets and taped down. Leg lengths were assessed in the lateral position and noted. Preoperative briefing was done with the operative team and everyone was ready for the procedure to start. The patients left lower extremity was then prepped and draped in the normal sterile fashion. Timeout was then performed and all parties in agreement with the procedure to be performed. Incision was then made over the previous of bio marked area of the left hip. Subcutaneous dissection was taken down of the tensor fascia phillip which was identified. Electrocautery was used for hemostasis. Tensor fascia phillip was then split in line with its fibers distally and proximally. The sciatic nerve was palpated and protected and the Charnley retractor was then placed. The gluteal fibers were split bluntly proximally. Bursectomy was performed over the lateral greater trochanter to reveal the vastus lateralis insertion as well as the gluteus medius insertion. A retractor was placed underneath the gluteus medius to protect it and revealed the piriformis tendon as well as the gluteus minimus tendon. A large capsular flap along with the piriformis tendon and short external rotators was elevated from the bone. The piriformis was tagged with Ethibond sits stitch and marked. Dissection was taken down and then angled proximally and posteriorly to allow for capsulotomy along the femoral neck. We encountered a large amount of comminution in this area. The capsulotomy was performed up to the labrum but keeping the labrum intact. The leg was then positioned in internal rotation and abduction to allow for visualization and stretch the capsule. Capsulotomy was performed around this area to allow for visualization and was minimal. Release was done down the lesser trochanter which could be visualized. A cleanup femoral neck cut was then made sparingly as the patient had a very vertical femoral neck fracture which extended down to the level of the lesser trochanter. The intertrochanteric region was intact and there was a very small sliver of medial calcar remaining however this was very minimal secondary to the type of fracture and the high degree of angularity in the fracture. There is no extension beyond the calcar there is no calcar fracture noted. Once cleanup cut was made bone hook was used to pull the femur aside shallot axis to the acetabulum a corkscrew was then used and placed inside the femoral head. T-handle was then placed in the femoral head was removed. There is a robust ligamentum flavum which was removed. The acetabulum was intact with good cartilage and good labral tissue. The acetabulum was then irrigated with normal sterile saline. And a sponge placed inside the acetabulum. Attention was then drawn to the femur which was placed in position to visualize for broaching. A cookie-cutter was used to make a lateral cut to allow for lateralization and a canal finder was used for canal axis. A rattail was used to lateralize and then sequential broaching was performed. Broaching was performed to a 14 mm stem. A trial 40 mm stem was in place and a standard neck was placed however this was unable to be reduced with the head on secondary to undue stress on the femur and it being too large and so a short neck was chosen. A trial short neck was placed along with a 47 bipolar head +1.5. This was reduced. Leg lengths were then checked. Leg lengths were close to even as they were preoperatively. The leg was then stable through flexion and extension internal/external rotation with no impingement and no perching. This did make the leg slightly short on the left but when trialing the standard head and standard offset again even with a smaller broach and sinking it slightly there was undue stress put on the femur and needed to reduce this into place and so was decided to go with a 14 stem to leave it slightly proud with a short neck and a 1.5 head. The components were selected and confirmed. The hip was then redislocated and the canal was irrigated copiously. Along the acetabulum. A Betadine solution irrigation was placed as well and then washed out with normal sterile saline. Final components were selected the final stem was then impacted into place with ease. There is no evidence of calcar fracture fracture. The stem did sit a little bit higher however this would hopefully help with length needed. The final head was then impacted onto the neck and confirmed to be tight and in position. Prior to this the trunnion was dried to allow for good fit. The hip was then atraumatically reduced and taken through a range of motion. There is good range of motion with no impingement no perching and good stability throughout. Leg lengths were checked and there was a shortening on the left-hand side but this was accepted secondary to the difficulty with reduction of the longer neck size which would have put undue stress on the patient's femur and possibly caused fracture. The hip was again taken through a range of motion and was stable. Shuck test revealed good stability as well. The wound was then copiously irrigated with normal sterile saline followed by Betadine solution followed by sterile saline. Ethibond was then used to repair the piriformis and capsule to the bone through bone tunnels in the greater trochanter posteriorly. They were tensioned appropriately and sutured into place with a good repair. Capsule was then repaired proximally. Charnley retractors removed and the TFL fascia and muscle was then repaired with #1 Vicryl in a running locking fashion. Subcu tissue was closed with an 0 Vicryl in running fashion followed by 2-0 Vicryl and 3-0 Monocryl in the subcuticular region. This was then cleaned sterilely and dressed with ex-glue Telfa 4 x 4's and Tegaderm. The patient was then transferred back to their hospital bed. There were awakened by department of anesthesia having tolerated the procedure very well with no complications. Leg lengths were again checked with the patient supine. The left lower extremity was slightly short by about 5 mm. However this was a ccepted and stable. The patient was then transported to the postoperative care unit in stable condition.
[2020-07-13] MEDS: MULTIVITAMINS, THERA 1 EACH TAB PO SCH (12:05)
[2020-07-13] MEDS: SODIUM CHLORIDE 0.9% 1,000 ML IV SCH (12:05)
--- NOTE | 2020-07-13 12:49 | PN ---
PROGRESS NOTE 84-year-old white female, status post hip surgery by Dr. Moreau. She is postop. She will need physical therapy back at [facility] where she lives. On admission, she had cough, possible community-acquired pneumonia. CT scan of her lungs shows a 3.6, nodule on the right lobe of the thyroid gland calcifications. We will repeat an ultrasound on vessel coronary artery calcifications. Assessment on a CT scan of the chest is coronary artery disease, atelectasis versus pneumonia. She has a nodule on her thyroid gland. Possibly do an ultrasound of her thyroid, while she is here. She is status post hip surgery. Lungs are clear. Cardiovascular S1-S2. Hematology negative Homans'. Psych: Fair mood and affect. EKG shows sinus rhythm. Right bundle branch block. PLAN: Continue current treatments and postop care and will follow up in the next 24 to 48 hours. MMODL / IJN: [id number] /
[2020-07-13] MEDS: DONEPEZIL 10 MG TAB PO SCH (20:16)
[2020-07-14] MEDS: SODIUM CHLORIDE 0.9% 1,000 ML IV SCH ×2 (05:17→17:38)
[2020-07-14 06:23] LABS: Basophils % (A) 0 %; Eosinophils # (A) 0.1 k/uL (0-0.7); Eosinophils % (A) 1 %; HCT 24.5 % (34.0-46.0); Lymphocytes # (A) 0.6 k/uL (1.0-4.8); Lymphocytes % (A) 8 %; MCH 33.3 pg (25.0-35.0); MCHC 34.4 g/dL (31.0-37.0); Mean Platelet Volume 7.4; Monocytes # (A) 0.5 k/uL (0-1.0); Monocytes % (A) 6 %; Neutrophils # (A) 6.6 k/uL (1.3-7.7); Neutrophils % (A) 84 %; Platelet Count 105 k/uL (150-450); RBC 2.53 m/uL (3.80-5.40); RDW 11.8 % (11.5-15.5); WBC 7.8 k/uL (3.8-10.6)
[2020-07-14 06:32] LABS: HGB 8.4 gm/dL (11.4-16.0)
[2020-07-14] MEDS: POTASSIUM CHLORIDE ER 10 MEQ TAB.ER.PRT PO SCH (08:17)
[2020-07-14] MEDS: FUROSEMIDE 20 MG TAB PO SCH (08:17)
[2020-07-14] MEDS: traMADol 50 MG TAB PO SCH ×5 (08:17→22:09)
[2020-07-14] MEDS: MEMANTINE 10 MG TAB PO SCH ×2 (08:17→20:39)
[2020-07-14] MEDS: PRIMIDONE 50 MG TAB PO SCH ×2 (08:17→20:39)
[2020-07-14] MEDS: predniSONE 5 MG TAB PO SCH ×2 (08:18→20:39)
[2020-07-14] MEDS: ENOXAPARIN 40 MG/0.4 ML SYRINGE SQ SCH (08:18)
[2020-07-14] MEDS: haloperidoL 1 MG TAB PO SCH ×2 (08:18→20:39)
[2020-07-14] MEDS: PROPRANOLOL 20 MG TAB PO SCH ×2 (08:18→20:39)
--- NOTE | 2020-07-14 10:19 | P.PN ---
Subjective Progress Note Date: 07/14/20 Principal diagnosis: Status post left hip hemiarthroplasty Patient was examined today at bedside, Dr. Moreau was available also. She was resting comfortably. Confusion seems better today. Her hemoglobin did drop from yesterday to today. She is utilizing the hip abductor pillow while in bed. She currently has no headaches, lightheadedness, chest pain or shortness of br eath, fever or chills, abdominal discomfort, numbness or tingling in the bilateral lower extremities. Objective - Vital Signs Vital signs: Vital Signs Temp 98.6 F 07/14/20 07:34 Pulse 84 07/14/20 07:34 Resp 16 07/14/20 07:34 BP 102/58 07/14/20 07:34 Pulse Ox 99 07/14/20 07:34 Intake & Output 07/13/20 07/14/20 07/14/20 18:59 06:59 18:59 Output Total 400 1050 Balance -400 -1050 Output: Urine 400 1050 Other: Voiding Method Indwelling Catheter # Voids 1 - Exam Left lower extremity: Postoperative bandages in good position and condition, there is no active drainage visualized. There is mild soft tissue swelling and ecchymosis surr ounding the left proximal femur Extension and flexion of the knee with minimal difficulty, plantarflexion, dorsiflexion, EHL, FHL are intact. Strength testing was not assessed with range of motion of the left lower extremity She is minimal tenderness of the proximal left femur, she's nontender surr ounding the knee, lower leg, foot and ankle Left lower extremity is 5mm short compared to right Calf is soft, no tenderness with palpation Sensory exam to light touch throughout the extremity is intact, dorsalis pedis pulses 2+. - Labs CBC & Chem 7: 07/14/20 05:48 07/12/20 06:44 Labs: Abnormal Lab Results - Last 24 Hours (Table) 07/14/20 Range/Units 05:48 RBC 2.53 L (3.80-5.40) m/uL Hgb 8.4 L D (11.4-16.0) gm/dL Hct 24.5 L (34.0-46.0) % Plt Count 105 L (150-450) k/uL Lymphocytes # 0.6 L (1.0-4.8) k/uL Assessment and Plan Assessment: Status post left hip hemiarthroplasty Acute blood loss anemia, expected surgical outcome Plan: Pain control, avoid IV narcotics and heavier oral narcotics. Okay to use Tylenol and tramadol Wound care instructions, continue use of the Opteform dressing. This will likely be removed prior to discharge by myself Ice and elevate the left lower extremity Utilize hip abductor pillow while in bed Weight-bear as tolerated with walker and assistance of physical therapy DVT prophylaxis, continue subcu medication 1 unit of packed RBC ordered Internal medicine recommendations Plan for discharge to subacute rehab in the next few days Time with Patient: Less than 30
--- NOTE | 2020-07-14 10:34 | PN ---
PROGRESS NOTE 84-year-old white female who is admitted with a hip fracture. Her home medicines are continuing. She is complaining of severe pain in her hip where she had a fracture. He has some confusion at night and in the morning, possibly due to anesthesia confusion versus pain medicine through the IV. Temperature 99.3, pulse 80s, respiratory 16 to 18. Blood pressure is 90s to 100s over 50s. O2 96%. Cardiovascular S1-S2. Lungs decreased breath sounds. Musculoskeletal: She is sitting up in bed. Her incision is clean, dry, intact. She is complaining of 8/10 pain. Labs are reviewed. ASSESSMENT: 1. Status post left hip hemiarthroscopy. 2. Essential tremors. 3. Dementia. 4. Mood disorder. 5. Hypertension. 6. Diastolic congestive heart failure. Weight bear as tolerated. PT/OT. Back to [facility] when cleared by Orthopedic surgery. MMODL / IJN: [id number] /
[2020-07-14] MEDS: MULTIVITAMINS, THERA 1 EACH TAB PO SCH (12:25)
[2020-07-14 19:18] LABS: Basophils % (A) 0 %; Eosinophils # (A) 0.1 k/uL (0-0.7); Eosinophils % (A) 1 %; HCT 30.7 % (34.0-46.0); HGB 10.5 gm/dL (11.4-16.0); Lymphocytes # (A) 0.7 k/uL (1.0-4.8); Lymphocytes % (A) 7 %; MCH 32.3 pg (25.0-35.0); MCHC 34.3 g/dL (31.0-37.0); MCV 94.1 fL (80.0-100.0); Mean Platelet Volume 7.8; Monocytes # (A) 0.5 k/uL (0-1.0); Monocytes % (A) 5 %; Neutrophils # (A) 8.8 k/uL (1.3-7.7); Neutrophils % (A) 87 %; Platelet Count 129 k/uL (150-450); RBC 3.26 m/uL (3.80-5.40); RDW 14.5 % (11.5-15.5); WBC 10.1 k/uL (3.8-10.6)
[2020-07-14] MEDS: DONEPEZIL 10 MG TAB PO SCH (20:39)
[2020-07-15] MEDS: SODIUM CHLORIDE 0.9% 1,000 ML IV SCH (05:25)
[2020-07-15] MEDS: traMADol 50 MG TAB PO SCH (09:36)
[2020-07-15] MEDS: PRIMIDONE 50 MG TAB PO SCH ×2 (09:36→20:15)
[2020-07-15] MEDS: FUROSEMIDE 20 MG TAB PO SCH (09:36)
[2020-07-15] MEDS: POTASSIUM CHLORIDE ER 10 MEQ TAB.ER.PRT PO SCH (09:36)
[2020-07-15] MEDS: ENOXAPARIN 40 MG/0.4 ML SYRINGE SQ SCH (09:37)
[2020-07-15] MEDS: haloperidoL 1 MG TAB PO SCH ×2 (09:37→20:15)
[2020-07-15] MEDS: MEMANTINE 10 MG TAB PO SCH ×2 (09:37→20:15)
[2020-07-15] MEDS: PROPRANOLOL 20 MG TAB PO SCH ×2 (09:39→20:15)
[2020-07-15] MEDS: predniSONE 5 MG TAB PO SCH ×2 (09:40→20:15)
[2020-07-15] MEDS ORDERED: ACETAMINOPHEN TAB 325 MG TAB PO PRN (11:47)
--- NOTE | 2020-07-15 12:14 | P.PN ---
Subjective Progress Note Date: 07/15/20 Principal diagnosis: Status post left hip hemiarthroplasty Patient was evaluated today at bedside, Dr. Moreau was available also. Patient was sleeping upon arrival. According to nursing the patient was very confusing combative last night and into this morning. According to nursing, she has only received tramadol. Per nursing were no other acute events with regards to chest pain, shortness of breath, fever or chills. Objective - Vital Signs Vital signs: Vital Signs Temp 97.9 F 07/15/20 08:00 Pulse 82 07/15/20 09:55 Resp 17 07/15/20 09:55 BP 110/54 07/15/20 09:39 Pulse Ox 92 L 07/15/20 08:00 Intake & Output 07/14/20 07/15/20 07/15/20 18:59 06:59 18:59 Intake Total 710 Output Total 600 550 Balance 110 -550 Intake: Oral 400 Blood Product 310 Rc As-1 Unit 310 [id number] Output: Urine 600 550 Uretheral (Gerber) 600 Other: Voiding Method Indwelling Catheter Indwelling Catheter Indwelling Catheter - Exam Left lower extremity: Postoperative bandages in good position and condition, there is no active drainage visualized. There is mild soft tissue swelling and ecchymosis surrounding the left proximal femur - Labs CBC & Chem 7: 07/14/20 18:49 07/12/20 06:44 Labs: Abnormal Lab Results - Last 24 Hours (Table) 07/14/20 07/14/20 Range/Units 10:08 18:49 RBC 3.26 L (3.80-5.40) m/uL Hgb 10.5 L (11.4-16.0) gm/dL Hct 30.7 L (34.0-46.0) % Plt Count 129 L (150-450) k/uL Neutrophils # 8.8 H (1.3-7.7) k/uL Lymphocytes # 0.7 L (1.0-4.8) k/uL Crossmatch See Detail Assessment and Plan Assessment: Status post left hip hemiarthroplasty Acute blood loss anemia, expected surgical outcome Plan: Pain control, discontinue narcotics, okay to utilize oral Tylenol Plan for dressing change prior to discharge, I will do this at bedside Ice and elevate the left lower extremity Utilize hip abductor pillow while in bed Weight-bear as tolerated with walker and assistance of physical therapy DVT prophylaxis, continue subcu medication Patient's hemoglobin is much improved since being transfuse 1 unit, continue to monitor during inpatient stay Internal medicine recommendations Plan for discharge to subacute rehab tomorrow Time with Patient: Less than 30
--- NOTE | 2020-07-15 12:32 | PN ---
PROGRESS NOTE An 84-year-old white female with acute on chronic anemia. Hemoglobin is 10.5, white count 10.1. Respiratory rate 16 to 18, temperature 97 to 98, blood pressure 100 to 108 over 50s to 60s, respiratory 16-20, O2 92 on 2 L. She is up out of bed with physical therapy. Her mental status is better today. Confusion is better. Vital signs reviewed. Hemoglobin is increased back up to 10.4 from 8. Cardiovascular S1-S2. Lungs decreased breath sounds x4. Neurologic: Essential tremor. Plan is to continue current home medicines include breathing treatments as needed. Echocardiogram is reviewed. The patient appears to be improving. Possibly send back for [facility]. Extended care facility at this time. MMODL / IJN: [id number] /
[2020-07-15] MEDS: MULTIVITAMINS, THERA 1 EACH TAB PO SCH (13:17)
--- NOTE | 2020-07-15 14:27 | US ---
EXAMINATION TYPE: US thyroid st tissue head/neck DATE OF EXAM: 07/15/2020 COMPARISON: US 09/01/2018 CLINICAL HISTORY: nodule. Followup right thyroid nodules on inpatient; left thyroidectomy GLAND SIZE: Right Lobe: 5.6 x 3.2 x 3.0 cm Overall Parenchyma: heterogenous Left Lobe: surgically removed; no thyroid tissue is seen by US today Isthmus Thickness: 0.3 cm right isthmus NODULES RIGHT: # of nodules measured on right: 3 1. 2.3 X 1.1 x 0.8 cm solid or almost completely solid, hypoechoic nodule upper pole which is wider than tall, with smooth margins, with echogenic foci. on image #[id number]. Prior size: 1.8 x 1.0 x 1.5 cm 2. 2.9 X 2.3 x 2.1 cm solid or almost completely solid, hypoechoic nodule mid pole, which is wider than tall, with lobulated or irregular margins, with echogenic foci. Prior size: 3.5 x 2.8 x 2.0 cm 3. 1.9 X 1.9 x 1.2 cm solid or almost completely solid, hypoechoic nodule located inferior pole, wh ich is wider than tall, with smooth margins, with central echogenic foci. Prior size: 1.1 x 1.1 x 1.0 cm LEFT: # of nodules measured on left: 0 ISTHMUS: # of nodules measured in the isthmus: 0 Bilateral neck scanned: no evidence of lymphadenopathy. IMPRESSION: Multiple right side nodules. No dominant thyroid mass. Findings consistent with multinodular goiter. No increasing abnormality compared to old exam. 2017 ACR TI-RADS LEVEL: *Highest TI-RADS level nodule reported
[2020-07-15] MEDS: DONEPEZIL 10 MG TAB PO SCH (20:15)
[2020-07-16] MEDS: SODIUM CHLORIDE 0.9% 1,000 ML IV SCH ×2 (06:18→10:07)
[2020-07-16 07:40] VITALS: BP 155/77; PULSE 75; RESP 19; TEMP 98.4
[2020-07-16] MEDS: FUROSEMIDE 20 MG TAB PO SCH (09:01)
[2020-07-16] MEDS: ENOXAPARIN 40 MG/0.4 ML SYRINGE SQ SCH (09:01)
[2020-07-16] MEDS: predniSONE 5 MG TAB PO SCH (09:02)
[2020-07-16] MEDS: MEMANTINE 10 MG TAB PO SCH (09:02)
[2020-07-16] MEDS: haloperidoL 1 MG TAB PO SCH (09:02)
[2020-07-16] MEDS: POTASSIUM CHLORIDE ER 10 MEQ TAB.ER.PRT PO SCH (09:02)
[2020-07-16] MEDS: PRIMIDONE 50 MG TAB PO SCH (09:02)
[2020-07-16] MEDS: PROPRANOLOL 20 MG TAB PO SCH (09:03)
--- NOTE | 2020-07-16 09:40 | P.PN ---
Subjective Progress Note Date: 07/16/20 Principal diagnosis: Status post left hip hemiarthroplasty Patient was evaluated today at bedside, she is resting comfortably. Pain is well-controlled with regards to left lower extremity. She is utilizing the abductor pillow while in bed. Currently denies any headaches, lightheadedness, chest pain or shortness of breath. Objective - Vital Signs Vital signs: Vital Signs Temp 98.4 F 07/16/20 07:39 Pulse 75 07/16/20 07:39 Resp 19 07/16/20 07:39 BP 155/77 07/16/20 07:39 Pulse Ox 95 07/16/20 07:39 Intake & Output 07/15/20 07/16/20 07/16/20 18:59 06:59 18:59 Intake Total 400 Output Total 500 350 Balance -100 -350 Intake: Oral 400 Output: Urine 500 350 Uretheral (Gerber) 500 Other: Voiding Method Indwelling Catheter - Exam Left lower extremity: Postoperative bandages in good position and condition, there is no active drainage visualized. There is mild soft tissue swelling and ecchymosis surrounding the left proximal femur - Labs CBC & Chem 7: 07/14/20 18:49 07/12/20 06:44 Assessment and Plan Assessment: Status post left hip hemiarthroplasty Acute blood loss anemia, expected surgical outcome Plan: Pain control, plan for discharge on Tylenol Ice and elevate the left lower extremity Utilize hip abductor pillow while in bed Weight-bear as tolerated with walker and assistance of physical therapy DVT prophylaxis, continue subcu medication Internal medicine recommendations Plan for discharge to subacute rehab today Time with Patient: Less than 30
--- NOTE | 2020-07-16 09:47 | P.DS ---
Providers Date of admission: 07/11/20 21:14 Expected date of discharge: 07/16/20 Attending physician: Candelario Moreau DO Consults: 07/11/20 21:13 Consult Physician Urgent Consulting Provider: Titus Gutierrez Reason/Comments: acute ffs, left hip fracture Do you want consulting provider notified?: Yes Primary care physician: Titus Gutierrez [facility] Course: Date of admission: 07/11/2020 Date of discharge: 07/16/2020 Admission diagnosis: Displaced left femoral neck fracture, left knee contusion, left elbow contusion Discharge diagnosis: Status post left hip hemiarthroplasty, left knee contusion, left elbow contusion Attending physician: Dr. Moreau Surgical procedures: Left hip hemiarthroplasty Brief history: Patient is a 84-year-old female who presented to [facility] for evaluation of an injury to her left hip. [facility] apparently she had a fall that was unwitnessed. She was complaining of left hip, elbow and knee pain. Upon arrival to [facility], x-rayed evaluation was done. Images demonstrated a displaced fracture of the left femoral neck. It was determined there was no fractures of the left elbow or left knee. Patient was admitted under orthopedic care with plan for surgical intervention. Proper medical consults were placed for management and clearance prior to surgery. She underwent surgery on 07/12/2020. Hospital course: Details of patient's surgery can be found in operative report. Patient tolerated the procedure well and was subsequently transported to orthopedic floor. Patient's orthopeidc and medical care was provided daily. Patient had daily laboratory tests performed for evaluation of overall blood counts. Patient had daily physical therapy to include strengthening range of motion as well as education with walker ambulation. Patient was treated with Lovenox for their postoperative DVT prophylaxis during their inpatient stay. Patient was noted to have a relatively uneventful postoperative course. Patient reported satisfactory pain control with oral pain medications by postoperative day 0. Patient showed satisfactory progress with physical therapy. Patient moved steadily through the program and had no difficulty meeting the goals by postoperative day 4. Given patient's otherwise satisfactory course and having met physical therapy goals, plan is to discharge patient rehab on postoperative day 4. Discharge condition/disposition: Patient will be discharged rehab in stable condition. Discharge medications: Instructions are given on resumption of patient's normal daily medications per primary care recommendation, in addition patient will be prescribed heparin 5000 units, Colace 100 mg, Tylenol 650 mg, ferrous sulfate 325 mg. Discharge instructions: 1. Wound care and infection precautions, keep incision dry and covered while showering, no lotions, creams, moisturizers. No soaking, tubs, pools, hottubs. Do not scrub over the incision. Adhere to posterior hip precautions 2. Weight-bear as tolerated with walker / cane until follow-up. 3. Ice and elevate when necessary. Do not exceed 20 minutes per hour with ice pack. 4. Utilize compression sleeve until seen at first follow up appointment. 5. Visiting nursing care. 6. Home physical therapy. 7. Pain meds and anticoagulants per prescription. 8. Pain medication has potential to cause constipation. Increase oral fluid and fiber intake. Contact primary care provider if you have not had a bowel movement within 48 hours after discharge 9. No anti-inflammatory medication until discussed at first post operative visit, this including Motrin, Aleve, Mobic, Diclofenac. 10. Follow up in office at 2 weeks postop with Osmany Biggs PA-C 11. Follow up with your primary care doctor 7-10 days after discharge. 12. Contact [facility] with any questions, . Procedures: Left hip hemiarthroplasty Patient Condition at Discharge: Stable Plan - Discharge Summary New Discharge Prescriptions: New Docusate [Colace] 100 mg PO DAILY #30 capsule Ferrous Sulfate [Feosol] 325 mg PO BID #30 tab Acetaminophen Tab [Tylenol] 650 mg PO Q6H PRN #30 tab PRN Reason: Pain Heparin Sodium,Porcine [Heparin Sodium] 5,000 unit SQ Q12HR #52 vial No Action Primidone [Mysoline] 100 mg PO BID Donepezil HCl [Aricept] 10 mg PO HS Propranolol [Inderal] 20 mg PO BID Loperamide [Imodium] 2 mg PO QID PRN PRN Reason: Diarrhea predniSONE 5 mg PO BID haloperidoL [Haldol] 1 mg PO BID Potassium Chloride ER [K-Dur 10] 10 meq PO DAILY Multivitamins, Thera [Multivitamin (formulary)] 1 tab PO DAILY@1200 Memantine HCl [Memantine HCl ER] 28 mg PO HS Furosemide [Lasix] 20 mg PO DAILY Discharge Medication List Donepezil HCl [Aricept] 10 mg PO HS 11/17/17 [History] Primidone [Mysoline] 100 mg PO BID 11/17/17 [History] Furosemide [Lasix] 20 mg PO DAILY 07/11/20 [History] Loperamide [Imodium] 2 mg PO QID PRN 07/11/20 [History] Memantine HCl [Memantine HCl ER] 28 mg PO HS 07/11/20 [History] Multivitamins, Thera [Multivitamin (formulary)] 1 tab PO DAILY@1200 07/11/20 [History] Potassium Chloride ER [K-Dur 10] 10 meq PO DAILY 07/11/20 [History] Propranolol [Inderal] 20 mg PO BID 07/11/20 [History] haloperidoL [Haldol] 1 mg PO BID 07/11/20 [History] predniSONE 5 mg PO BID 07/11/20 [History] Acetaminophen Tab [Tylenol] 650 mg PO Q6H PRN #30 tab 07/16/20 [Rx] Docusate [Colace] 100 mg PO DAILY #30 capsule 07/16/20 [Rx] Ferrous Sulfate [Feosol] 325 mg PO BID #30 tab 07/16/20 [Rx] Heparin Sodium,Porcine [Heparin Sodium] 5,000 unit SQ Q12HR #52 vial 07/16/20 [Rx] Follow up Appointment(s)/Referral(s): Titus Gutierrez MD [Primary Care Provider] - 1-2 days [facility], [NON-STAFF] - As Needed Candelario Moreau DO [Doctor of Osteopathic Medicine] - 2 Weeks Activity/Diet/Wound Care/Special Instructions: Orthopedic Discharge Instructions: 1. Wound care and infection precautions, keep incision dry and covered while showering, no lotions, creams, moisturizers. No soaking, pools, hot tubs. Do not scrub over incision. 2. Weight-bear as tolerated with walker / cane until follow-up. 3. Posterior hip precautions, no flexing at the hips, avoid internal rotation of the left lower extremity, avoid sitting in deep chairs, no sleeping on the left side. 4. Ice and elevate when necessary. Do not exceed 20 minutes per hour with ice pack. 5. Utilize compression sleeve until seen at first follow up appointment. 6. Pain meds and anticoagulants per prescription. 7. Pain medication has potential to cause constipation. Increase oral fluid and fiber intake. Contact primary care provider if you have not had a bowel movement within 48 hours after discharge. 8. No anti-inflammatory medication until discussed at first post operative visit, this including Motrin, Aleve, Mobic, Diclofenac. 9. Follow up in office at 2 weeks postop with Osmany Biggs PA-C 10. Follow up with your primary care doctor 7-10 days after discharge. 11. Contact [facility] with any questions, . Wound care instructions: 1. Please remove foam dressing on 07/19/2020 2. Ok to shower over the incision after removal of the dressing 3. Ok to remove jonathan on 07/26/2020 Anticoagulation instructions: 1. Ok to stop heparin on 08/12/2020 Discharge Disposition: TRANSFER TO SNF/ECF
[2020-07-16] MEDS: MULTIVITAMINS, THERA 1 EACH TAB PO SCH (13:56)
== END 2020-07-16 13:55 | DRG 522 ==
LOC: EC 17:20 → 4SSUR 21:14
PROVIDERS: ADMIT Orthopaedic Surgery; ATTEND Orthopaedic Surgery
PROC: 0SRS0JA Replacement of Left Hip Joint, Femoral Surface with Synthetic Substitute, Uncemented, Open Approach (ICD-10-PCS; principal; 2020-07-12 10:30)
PROC: 30233N1 Transfusion of Nonautologous Red Blood Cells into Peripheral Vein, Percutaneous Approach (ICD-10-PCS; 2020-07-14)
DX: S72.002A Fracture of unspecified part of neck of left femur, initial encounter for closed fracture (principal); D62 Acute posthemorrhagic anemia; I50.32 Chronic diastolic (congestive) heart failure; S51.012A Laceration without foreign body of left elbow, initial encounter; M11.262 Other chondrocalcinosis, left knee; J44.9 Chronic obstructive pulmonary disease, unspecified; I11.0 Hypertensive heart disease with heart failure; F03.90 Unspecified dementia, unspecified severity, without behavioral disturbance, psychotic disturbance, mood disturbance, and anxiety; F29 Unspecified psychosis not due to a substance or known physiological condition; F25.9 Schizoaffective disorder, unspecified; F39 Unspecified mood [affective] disorder; S80.02XA Contusion of left knee, initial encounter; S50.02XA Contusion of left elbow, initial encounter; W18.30XA Fall on same level, unspecified, initial encounter; Y92.091 Bathroom in other non-institutional residence as the place of occurrence of the external cause; I45.10 Unspecified right bundle-branch block; Z20.822 Contact with and (suspected) exposure to COVID-19; I25.10 Atherosclerotic heart disease of native coronary artery without angina pectoris; G25.0 Essential tremor; F41.9 Anxiety disorder, unspecified; E89.0 Postprocedural hypothyroidism; Z79.899 Other long term (current) drug therapy
CPT/HCPCS: 36415; 51702; 70450; 71045; 71250; 72125; 72192; 73501; 73502; 76536; 80048; 80053; 81003; 83605; 84436; 84443; 84480; 85025; 86850; 86900; 86901; 86920; 87635; 88305; 88311; 93005; 93306; 96374; 99285

== ENCOUNTER 2022-01-11 15:54 | Inpatient (IN) | payer MEDICARE, OTHER ==
--- NOTE | 2022-01-11 16:37 | ED ---
Fall HPI - General Chief Complaint: Fall Stated Complaint: fall Time Seen by Provider: 01/11/22 16:03 Source: EMS, RN notes reviewed Mode of arrival: EMS Limitations: altered mental status, physical limitation - History of Present Illness Initial Comments: This is an 86-year-old female who presents to the emergency department for a fall. Per EMS, she was found on the floor of the care home at [facility] at approximately 5:30 AM this morning. It is unclear why she is just being brought to the emergency department at approximately 4 PM if the fall happened early this morning. She was found on the floor and said to have had an unwitnessed fall. Not currently taking any blood thinners. Earlier this morning she was complaining of pain to the right hip and right forearm. On evaluation she is not currently complaining of any pain. However, the patient is not oriented to person, place, or time. She is in hospice for Alzheimer's and also has a diagnosis of schizoaffective disorder. Per EMS, the care home states that she is at baseline. However, her son states that she is usually able to communicate. Her son states that she entered into hospice 2 weeks ago, and the primary reason for this was that her son wanted more nursing staff around his mother in order for her to receive better care. MD Complaint: fall When Fall Occurred: unsure, other Fall Witnessed: no Place Fall Occurred: care home/SNF Loss of Consciousness: unsure Prolonged Down Time?: unclear - Related Data Home Medications Medication Instructions Recorded Confirmed Primidone [Mysoline] 50 mg PO TID@0800,1200,1800 11/17/17 01/11/22 Furosemide [Lasix] 20 mg PO DAILY 07/11/20 01/11/22 Potassium Chloride ER [K-Dur 10] 10 meq PO DAILY 07/11/20 01/11/22 Propranolol [Inderal] 20 mg PO BID 07/11/20 01/11/22 haloperidoL [Haldol] 1 mg PO TID@0500,1200,2000 07/11/20 01/11/22 predniSONE 5 mg PO BID 07/11/20 01/11/22 LORazepam [Ativan] 0.5 mg PO Q6H PRN 01/11/22 01/11/22 Linagliptin [Tradjenta] 5 mg PO HS 01/11/22 01/11/22 Allergies Allergy/AdvReac Type Severity Reaction Status Date / Time No Known Allergies Allergy Verified 01/11/22 17:29 Review of Systems ROS Statement: Those systems with pertinent positive or pertinent negative responses have been documented in the HPI. ROS Other: All systems not noted in ROS Statement are negative. Limitations: ROS unobtainable due to patients medical condition Past Medical History Past Medical History: Dementia, Memory Impairment Additional Past Medical History / Comment(s): forgetful per son, unsure about some of her health hx., had problem in past w/GI bleeding or rectal bleeding?, recent sleep study done. History of Any Multi-Drug Resistant Organisms: None Reported Additional Past Surgical History / Comment(s): oral surgy on palate. , left partial thyroidectomy Past Anesthesia/Blood Transfusion Reactions: Unable to Obtain Additional Past Anesthesia/Blood Transfusion Reaction / Comment(s): mom not there w/him-he's unsure, he doesn't know of any problems Past Psychological History: Anxiety, Schizoaffective Disorder Smoking Status: Unknown if ever smoked Past Alcohol Use History: None Reported Past Drug Use History: None Reported - Past Family History Mother Family Medical History: No Reported History General Exam Limitations: altered mental status, physical limitation Eye exam: Present: normal appearance, PERRL, EOMI. Absent: scleral icterus, conjunctival injection, periorbital swelling ENT exam: Present: normal exam, mucous membranes moist Neck exam: Present: normal inspection. Absent: tenderness, meningismus, lymphadenopathy Respiratory exam: Present: normal lung sounds bilaterally. Absent: respiratory distress, wheezes, rales, rhonchi, stridor Cardiovascular Exam: Present: regular rate, normal rhythm, normal heart sounds. Absent: systolic murmur, diastolic murmur, rubs, gallop, clicks Extremities exam: Present: other (Right leg is shortened. ) Neurological exam: Present: other (Alert but not oriented to person, place, or time. ) Skin exam: Present: other (Seborrheic dermatitis, ecchymosis to the bilateral olecranon process with minor abrasion on the right. ) Course Vital Signs 01/11/22 01/11/22 01/11/22 15:59 17:20 19:53 Temperature 99.1 F Pulse Rate 99 67 99 Respiratory 16 18 18 Rate Blood Pressure 110/81 104/89 140/110 O2 Sat by Pulse 91 L 93 L 91 L Oximetry 01/11/22 20:03 Temperature Pulse Rate 101 H Respiratory 16 Rate Blood Pressure 113/83 O2 Sat by Pulse 100 Oximetry Medical Decision Making - Medical Decision Making This is an 86-year-old female who presents to the emergency department for a fall. Patient is alert but is not oriented to person, place, or time. Multiple x-rays and CT of the brain and C-spine were obtained. XR of the right hip revealed an acute impacted subcapital fracture of the right femur. I spoke with Dr. Malhotra, orthopedics, who would like to plan on surgical intervention tomorrow morning if the patient is medically cleared. Urinalysis, EKG, and baseline laboratory studies obtained as well, as the incident is not clear and it is also not clear if the patient is at baseline or not. I spoke with her son who states that they spoke on the phone yesterday and they had a full coherent conversation. She is not currently able to recognize or acknowledge him in the exam room. She is also making strange arm movements. [facility], which may be contributing to her behavior. Troponin is elevated at 0.139. CK elevated at 670. She is not currently taking any blood thinners. Will trend the troponin and order echocardiogram and cardiology consult per Dr. Gutierrez's request. Patient will be admitted for surgical intervention of the right hip. This case was discussed in detail with the attending ED physician. Presentation, findings, and treatment plan discussed in detail as well. - Lab Data Result diagrams: 01/11/22 17:27 01/11/22 17:27 Lab Results 01/11/22 01/11/22 01/11/22 Range/Units 17:27 17: 17: WBC 11.2 H (3.8-10.6) k/uL RBC 3.88 (3.80-5.40) m/uL Hgb 12.9 (11.4-16.0) gm/dL Hct 37.5 (34.0-46.0) % MCV 96.6 (80.0-100.0) fL MCH 33.3 (25.0-35.0) pg MCHC 34.5 (31.0-37.0) g/dL RDW 11.9 (11.5-15.5) % Plt Count 173 (150-450) k/uL MPV 7.3 Neutrophils % 89 % Lymphocytes % 5 % Monocytes % 5 % Eosinophils % 1 % Basophils % 0 % Neutrophils # 9.9 H (1.3-7.7) k/uL Lymphocytes # 0.6 L (1.0-4.8) k/uL Monocytes # 0.5 (0-1.0) k/uL Eosinophils # 0.1 (0-0.7) k/uL Basophils # 0.0 (0-0.2) k/uL Sodium 133 L (137-145) mmol/L Potassium 3.6 (3.5-5.1) mmol/L Chloride 101 (98-107) mmol/L Carbon Dioxide 25 (22-30) mmol/L Anion Gap 7 mmol/L BUN 24 H (7-17) mg/dL Creatinine 0.54 (0.52-1.04) mg/dL Est GFR (CKD-EPI)AfAm >90 (>60 ml/min/1.73 sqM) Est GFR (CKD-EPI)NonAf 87 (>60 ml/min/1.73 sqM) Glucose 150 H (74-99) mg/dL Calcium 8.6 (8.4-10.2) mg/dL Total Bilirubin 0.8 (0.2-1.3) mg/dL AST 49 H (14-36) U/L ALT 36 H (4-34) U/L Alkaline Phosphatase 90 (38-126) U/L Troponin I (0.000-0.034) ng/mL Total Protein 6.4 (6.3-8.2) g/dL Albumin 3.8 (3.5-5.0) g/dL Urine Color Light Yellow Urine Appearance Clear (Clear) Urine pH 5.5 (5.0-8.0) Ur Specific [place] 1.012 (1.001-1.035) Urine Protein Negative (Negative) Urine Glucose (UA) Negative (Negative) Urine Ketones Negative (Negative) Urine Blood Negative (Negative) Urine Nitrite Negative (Negative) Urine Bilirubin Negative (Negative) Urine Urobilinogen <2.0 (<2.0) mg/dL Ur Leukocyte Esterase Negative (Negative) 01/11/22 Range/Units 17:27 WBC (3.8-10.6) k/uL RBC (3.80-5.40) m/uL Hgb (11.4-16.0) gm/dL Hct (34.0-46.0) % MCV (80.0-100.0) fL MCH (25.0-35.0) pg MCHC (31.0-37.0) g/dL RDW (11.5-15.5) % Plt Count (150-450) k/uL MPV Neutrophils % % Lymphocytes % % Monocytes % % Eosinophils % % Basophils % % Neutrophils # (1.3-7.7) k/uL Lymphocytes # (1.0-4.8) k/uL Monocytes # (0-1.0) k/uL Eosinophils # (0-0.7) k/uL Basophils # (0-0.2) k/uL Sodium (137-145) mmol/L Potassium (3.5-5.1) mmol/L Chloride (98-107) mmol/L Carbon Dioxide (22-30) mmol/L Anion Gap mmol/L BUN (7-17) mg/dL Creatinine (0.52-1.04) mg/dL Est GFR (CKD-EPI)AfAm (>60 ml/min/1.73 sqM) Est GFR (CKD-EPI)NonAf (>60 ml/min/1.73 sqM) Glucose (74-99) mg/dL Calcium (8.4-10.2) mg/dL Total Bilirubin (0.2-1.3) mg/dL AST (14-36) U/L ALT (4-34) U/L Alkaline Phosphatase (38-126) U/L Troponin I 0.139 H* (0.000-0.034) ng/mL Total Protein (6.3-8.2) g/dL Albumin (3.5-5.0) g/dL Urine Color Urine Appearance (Clear) Urine pH (5.0-8.0) Ur Specific [place] (1.001-1.035) Urine Protein (Negative) Urine Glucose (UA) (Negative) Urine Ketones (Negative) Urine Blood (Negative) Urine Nitrite (Negative) Urine Bilirubin (Negative) Urine Urobilinogen (<2.0) mg/dL Ur Leukocyte Esterase (Negative) - EKG Data EKG Comments: Uncertain regular rhythm. Left axis deviation. Right bundle branch block. Ventri cular rate 101 BM, KS interval undefined, QRS duration 142 ms, QTc 401 ms. - Radiology Data Radiology results: report reviewed, image reviewed Disposition Clinical Impression: Subcapital fracture of right femur Disposition: ADMITTED IP TO THIS HOSP
--- NOTE | 2022-01-11 16:57 | CT ---
EXAMINATION TYPE: CT brain sethine wo con DATE OF EXAM: 01/11/2022 COMPARISON: 07/11/2020 HISTORY: Fall. CT DLP: 2481 mGycm Automated exposure control for dose reduction was used. There is diffuse cerebral atrophy. There is hypodensity in the periventricular white matter. There is no mass effect nor midline shift. No sign of intracranial hemorrhage. The calvarium is intact skull base is intact. There is normal aeration of the mastoid sinuses. The cervical vertebra have fairly normal spacing and alignment. Posterior elements are intact. Facet joints are intact. Prevertebral soft tissues are intact. IMPRESSION: Negative CT scan of the cervical spine. No fracture. Cerebral atrophy and chronic small vessel ischemia. No acute intracranial abnormality. There is progr ession of the white matter changes compared to CT SCAN.
--- NOTE | 2022-01-11 17:05 | XR ---
EXAMINATION TYPE: XR knee complete RT DATE OF EXAM: 01/11/2022 COMPARISON: NONE HISTORY: Bruising. Pain TECHNIQUE: 3 views FINDINGS: I see no fracture nor dislocation. No evidence of joint effusion. There is vascular calcifi cation. IMPRESSION: Negative right knee exam. No fracture seen.
--- NOTE | 2022-01-11 17:06 | XR ---
EXAMINATION TYPE: XR forearm RT DATE OF EXAM: 01/11/2022 COMPARISON: NONE HISTORY: Pain TECHNIQUE: 2 views FINDINGS: Radius and ulna appear intact. I see no fracture or dislocation IMPRESSION: Negative right forearm exam.
--- NOTE | 2022-01-11 17:08 | XR ---
EXAMINATION TYPE: XR Hip RT and AP Pelvis DATE OF EXAM: 01/11/2022 COMPARISON: 07/11/2020 HISTORY: Pain TECHNIQUE: Single view FINDINGS: There is impacted subcapital fracture right femur. Fracture appears acute. Pelvic ring is i ntact. There is left hip prosthesis. IMPRESSION: Acute impacted subcapital fracture right femur.
--- NOTE | 2022-01-11 17:09 | XR ---
EXAMINATION TYPE: XR chest 1V DATE OF EXAM: 01/11/2022 COMPARISON: 07/11/2020 HISTORY: Fall. Pain TECHNIQUE: Single view FINDINGS: Heart and mediastinum are normal. Lungs are clear of infiltrate. No heart failure. Thoracic aorta is atheromatous. IMPRESSION: No active cardiopulmonary disease. Normal heart. No change.
--- NOTE | 2022-01-11 17:10 | XR ---
EXAMINATION TYPE: XR elbow complete RT DATE OF EXAM: 01/11/2022 COMPARISON: 07/11/2020 HISTORY: Fall. Pain TECHNIQUE: 3 views FINDINGS: There is no evidence of fracture nor dislocation. Joint spaces are fairly normal. No sign o f joint effusion. IMPRESSION: Negative right elbow exam. No fracture
[2022-01-11 17:40] LABS: Basophils % (A) 0 %; Eosinophils # (A) 0.1 k/uL (0-0.7); Eosinophils % (A) 1 %; HCT 37.5 % (34.0-46.0); HGB 12.9 gm/dL (11.4-16.0); Lymphocytes # (A) 0.6 k/uL (1.0-4.8); Lymphocytes % (A) 5 %; MCH 33.3 pg (25.0-35.0); MCHC 34.5 g/dL (31.0-37.0); MCV 96.6 fL (80.0-100.0); Mean Platelet Volume 7.3; Monocytes # (A) 0.5 k/uL (0-1.0); Monocytes % (A) 5 %; Neutrophils # (A) 9.9 k/uL (1.3-7.7); Neutrophils % (A) 89 %; Platelet Count 173 k/uL (150-450); RBC 3.88 m/uL (3.80-5.40); RDW 11.9 % (11.5-15.5); WBC 11.2 k/uL (3.8-10.6)
[2022-01-11 17:43] LABS: Appearance,Urine Clear (Clear); Bilirubin,Urine Negative (Negative); Blood,Urine Negative (Negative); Color,Urine Light Yellow; Glucose,Urine (UA) Negative (Negative); Ketones,Urine Negative (Negative); Leukocyte Esterase,Urine Negative (Negative); Nitrite,Urine Negative (Negative); PH, Urine 5.5 (5.0-8.0); Protein,Urine Negative (Negative); Specific Gravity,Urine 1.012 (1.001-1.035); Urobilinogen,Urine <2.0 mg/dL (<2.0)
[2022-01-11 17:52] LABS: AST 49 U/L (14-36); African American GFR (CKD) >90 (>60 ml/min/1.73 sqM); Albumin 3.8 g/dL (3.5-5.0); Alkaline Phosphatase 90 U/L (38-126); Anion Gap 7 mmol/L; Blood Urea Nitrogen 24 mg/dL (7-17); Calcium 8.6 mg/dL (8.4-10.2); Carbon Dioxide 25 mmol/L (22-30); Chloride 101 mmol/L (98-107); Glucose 150 mg/dL (74-99); Non-African American GFR(CKD) 87 (>60 ml/min/1.73 sqM); Potassium 3.6 mmol/L (3.5-5.1); Sodium 133 mmol/L (137-145); Total Bilirubin 0.8 mg/dL (0.2-1.3); Total Protein 6.4 g/dL (6.3-8.2)
[2022-01-11 18:11] LABS: ALT 36 U/L (4-34)
[2022-01-11] MEDS ORDERED: SODIUM CHLORIDE 0.9% 1,000 ML IV STA (18:37)
[2022-01-11] MEDS ORDERED: NALOXONE 0.4 MG/ML 1 ML VIAL IV PRN (18:41)
[2022-01-11] MEDS ORDERED: ACETAMINOPHEN TAB 325 MG TAB PO PRN (18:41)
[2022-01-11] MEDS ORDERED: HYDROcodone/APAP 5-325MG 1 EACH TAB PO PRN (18:41)
[2022-01-11] MEDS ORDERED: oxyCODONE-APAP 5-325MG 1 EACH TAB PO PRN (18:41)
[2022-01-11] MEDS ORDERED: ONDANSETRON 4 MG/2 ML VIAL IVP PRN (18:41)
--- NOTE | 2022-01-11 19:36 | XR ---
EXAMINATION TYPE: XR lumbar spine 2 or 3V DATE OF EXAM: 01/11/2022 COMPARISON: NONE HISTORY: Pain. Fall TECHNIQUE: 3 views FINDINGS: The lumbar vertebrae are in normal alignment. There is no compression fracture. There is os teopenia of the aorta is atheromatous. Posterior elements are intact. Sacroiliac joints are intact There is slight narrowing of the disc spaces from L3 to S1 IMPRESSION: Mild spondylotic changes. No fracture seen.
[2022-01-11] MEDS ORDERED: MORPHINE SULFATE 4 MG/ML SYRINGE IVP PRN (19:52)
[2022-01-11] MEDS ORDERED: MORPHINE SULFATE 2 MG/ML SYRINGE IVP PRN (19:52)
[2022-01-11] MEDS ORDERED: LORazepam 0.5 MG TAB PO PRN (19:53)
[2022-01-11] MEDS: SODIUM CHLORIDE 0.9% 1,000 ML IV SCH (20:00)
[2022-01-11] MEDS: LINAGLIPTIN 5 MG TABLET PO SCH (23:10)
[2022-01-11] MEDS: predniSONE 5 MG TAB PO SCH (23:10)
[2022-01-11] MEDS: PROPRANOLOL 20 MG TAB PO SCH (23:38)
[2022-01-11] MEDS: haloperidoL 1 MG TAB PO SCH (23:38)
[2022-01-12] MEDS: SODIUM CHLORIDE 0.9% 1,000 ML IV SCH ×2 (06:42→22:40)
[2022-01-12] MEDS: haloperidoL 1 MG TAB PO SCH ×3 (06:42→21:22)
--- NOTE | 2022-01-12 08:59 | P.CRDCN ---
History of Present Illness Consult date: 01/12/22 Requesting physician: Boom Malhotra Reason for Consult (text): elevated troponin Chief complaint: s/p unwitnessed fall History of present illness: This is a pleasantly confused 86-year-old female patient who is unable to communicate adequately to obtain history. According to the chart she has a history of Alzheimer's and schizoaffective disorder and has been on hospice at [facility]. She had a fall yesterday morning that was not witnessed. Subsequently underwent x-rays which showed acute impacted subcapital fracture of the right femur. She was transferred via EMS to [facility]. We were asked to see the patient in consultation for elevated troponin as well as preoperative clearance. Patient underwent an echocardiogram in June 2020 which showed a normal LV systolic function, mild AI, mild TR and mild pulmonary hypertension. At that time she did undergo left hip arthroplasty following a fall and fracture. This admission laboratory values showed elevated troponin of 0.139, 0.194, and 0.231. EKG has a poor baseline due to patient's underlying tremor but there is no obvious evidence of ischemia. Chest x-ray showed no active cardiopulmonary disease, normal heart, no change. Current medications include Lasix 20 mg daily, Ativan, Tradjenta, potassium, primidone, propranolol 20 mg by mouth twice a day, Haldol and prednisone. Past Medical History Past Medical History: Dementia, Memory Impairment Additional Past Medical History / Comment(s): forgetful per son, unsure about some of her health hx., had problem in past w/GI bleeding or rectal bleeding?, recent sleep study done. History of Any Multi-Drug Resistant Organisms: None Reported Additional Past Surgical History / Comment(s): oral surgy on palate. , left partial thyroidectomy, left hip repair Past Anesthesia/Blood Transfusion Reactions: Unable to Obtain Additional Past Anesthesia/Blood Transfusion Reaction / Comment(s): . Past Psychological History: Anxiety, Schizoaffective Disorder Smoking Status: Unknown if ever smoked Past Alcohol Use History: None Reported Past Drug Use History: None Reported - Past Family History Mother Family Medical History: No Reported History Medications and Allergies Home Medications Medication Instructions Recorded Confirmed Type Primidone [Mysoline] 50 mg PO TID@0800,1200,1800 11/17/17 01/11/22 History Furosemide [Lasix] 20 mg PO DAILY 07/11/20 01/11/22 History Potassium Chloride ER [K-Dur 10] 10 meq PO DAILY 07/11/20 01/11/22 History Propranolol [Inderal] 20 mg PO BID 07/11/20 01/11/22 History haloperidoL [Haldol] 1 mg PO TID@0500,1200,2000 07/11/20 01/11/22 History predniSONE 5 mg PO BID 07/11/20 01/11/22 History LORazepam [Ativan] 0.5 mg PO Q6H PRN 01/11/22 01/11/22 History Linagliptin [Tradjenta] 5 mg PO HS 01/11/22 01/11/22 History Allergies Allergy/AdvReac Type Severity Reaction Status Date / Time No Known Allergies Allergy Verified 01/11/22 17:29 Physical Exam Vitals: Vital Signs Temp Pulse Pulse Resp BP BP Pulse Ox 01/12/22 07:59 99.2 F 92 16 127/57 94 L 01/12/22 04:00 97.7 F 81 16 136/81 95 01/11/22 23:14 98.7 F 90 14 152/79 93 L 01/11/22 21:47 99.2 F 90 14 139/73 93 L 01/11/22 21:40 99.2 F 90 14 139/73 93 L 01/11/22 20:03 101 H 16 113/83 100 01/11/22 19:53 99 18 140/110 91 L 01/11/22 17:20 67 18 104/89 93 L 01/11/22 15:59 99.1 F 99 16 110/81 91 L Intake and Output 01/11/22 01/12/22 01/12/22 22:59 06:59 14:59 Output Total 150 Balance -150 Output: Urine 150 Other: Voiding Method External Catheter External Catheter # Voids 1 Weight 45.132 kg PHYSICAL EXAMINATION: This is a 86-year-old female complaining of discomfort at this time but unable to localize pain. VITAL SIGNS: Blood pressure 127/57, heart rate 92, respirations 16, temp 99.2F. Patient is 94 % on 2 L via nasal cannula. HEENT: Head is atraumatic, normocephalic. Pupils are equal, round. Sclerae anicteric. Conjunctivae are clear. Mucous membranes of the mouth are moist. Neck is supple. There is no elevated jugular venous pressure. No carotid bruit is heard. CHEST EXAMINATION: Clear to auscultation bilaterally. No wheezes rales or rhonchi. Respirations even and nonlabored. HEART EXAMINATION: Heart regular, positive S1 and S2. No S3. No S4. Grade III/ Systolic ejection murmur. ABDOMEN: Soft, nontender. Bowel sounds are heard. No organomegaly noted. EXTREMITIES: 1+ peripheral pulses with no evidence of peripheral edema and no calf tenderness noted. NEUROLOGIC EXAMINATION: Patient is awake, oriented to . Results 01/11/22 17:27 01/11/22 17: Cardiac Enzymes 01/11/22 01/11/22 01/11/22 Range/Units 17: 17: 23:21 AST 49 H (14-36) U/L Troponin I 0.139 H* 0.194 H* (0.000-0.034) ng/mL 01/12/22 Range/Units 01:58 AST (14-36) U/L Troponin I 0.231 H* (0.000-0.034) ng/mL CBC 01/11/22 Range/Units 17:27 WBC 11.2 H (3.8-10.6) k/uL RBC 3.88 (3.80-5.40) m/uL Hgb 12.9 (11.4-16.0) gm/dL Hct 37.5 (34.0-46.0) % Plt Count 173 (150-450) k/uL Comprehensive Metabolic Panel 01/11/22 Range/Units 17:27 Sodium 133 L (137-145) mmol/L Potassium 3.6 (3.5-5.1) mmol/L Chloride 101 (98-107) mmol/L Carbon Dioxide 25 (22-30) mmol/L BUN 24 H (7-17) mg/dL Creatinine 0.54 (0.52-1.04) mg/dL Glucose 150 H (74-99) mg/dL Calcium 8.6 (8.4-10.2) mg/dL AST 49 H (14-36) U/L ALT 36 H (4-34) U/L Alkaline Phosphatase 90 (38-126) U/L Total Protein 6.4 (6.3-8.2) g/dL Albumin 3.8 (3.5-5.0) g/dL Current Medications Generic Name Dose Route Start Last Admin Trade Name Freq PRN Reason Stop Dose Admin Acetaminophen 650 mg 01/11/22 18:41 Acetaminophen Tab 325 Mg Tab PO Q6HR PRN Mild Pain or Fever > 100.5 Furosemide 20 mg 01/12/22 09:00 Furosemide 20 Mg Tab PO DAILY DREW Haloperidol 1 mg 01/11/22 20:00 01/12/22 06:42 Haloperidol 1 Mg Tab PO 1 mg TID@0500,1200,2000 DREW Administration Sodium Chloride 1,000 mls @ 75 mls/hr 01/11/22 18:45 01/12/22 06:42 Saline 0.9% IV 75 mls/hr .[id number] DREW Administration Linagliptin 5 mg 01/11/22 21:00 01/11/22 23:10 Linagliptin 5 Mg Tablet PO Not Given HS DREW Lorazepam 0.5 mg 01/11/22 19:53 Lorazepam 0.5 Mg Tab PO Q6H PRN Anxiety Morphine Sulfate 2 mg 01/11/22 19:52 Morphine Sulfate 2 Mg/Ml Syringe IVP Q6HR PRN Moderate Pain Morphine Sulfate 4 mg 01/11/22 19:52 01/11/22 20:01 Morphine Sulfate 4 Mg/Ml Syringe IVP 4 mg Q6HR PRN Administration Severe Pain Naloxone HCl 0.2 mg 01/11/22 18:41 Naloxone 0.4 Mg/Ml 1 Ml Vial IV Q2M PRN Opioid Reversal Ondansetron HCl 4 mg 01/11/22 18:41 Ondansetron 4 Mg/2 Ml Vial IVP Q8HR PRN Nausea And Vomiting Potassium Chloride 10 meq 01/12/22 09:00 Potassium Chloride Er 10 Meq Tab.Er.Prt PO DAILY DREW Prednisone 5 mg 01/11/22 21:00 01/11/22 23:10 Prednisone 5 Mg Tab PO Not Given BID DREW Primidone 50 mg 01/12/22 08:00 Primidone 50 Mg Tab PO TID@0800,1200,1800 DREW Propranolol HCl 20 mg 01/11/22 21:00 01/11/22 23:38 Propranolol 20 Mg Tab PO 20 mg BID DREW Administration Intake and Output 01/11/22 01/12/22 01/12/22 22:59 06:59 14:59 Output Total 150 Balance -150 Output: Urine 150 Other: Voiding Method External Catheter External Catheter # Voids 1 Weight 45.132 kg 01/11/22 17:27 01/11/22 17:27 EKG Interpretations (text) Poor baseline, Sinus mechanism, RBBB, nonstpecific ST-T waves abnormalities; similar to EKG from 06/2020 Assessment and Plan Assessment: #1 Right Femur Fracture status post fall, preoperative clearance #2 elevated troponins with no clear evidence of acute coronary event #3 systolic ejection murmur with no evidence of significant aortic valve disease on echocardiogram from 06/2020 #4 end stage Alzheimer's dementia #5 schizoaffective disorder Plan: From cardiology perspective patient is at increased risk to undergo surgery under anesthesia however there is no absolute contraindication. We will follow the patient perioperatively and provide further recommendations accordingly. DEBT [employer]LECTION SPECIALIST note has been reviewed, I agree with a documented findings and plan of care. Patient was seen and examined.
--- NOTE | 2022-01-12 08:59 | P.HPOR ---
History of Present Illness H&P Date: 01/12/22 Chief Complaint: Right hip pain. This is an 86-year-old female who presents to the emergency department for a fall. Per EMS, she was found on the floor of the [facility] at approximately 5:30 AM this morning. It is unclear why she is just being brought to the emergency department at approximately 4 PM if the fall happened early this morning. She was found on the floor and said to have had an unwitnessed fall. Earlier she was complaining of pain to the right hip and right forearm. On evaluation she is not currently complaining of any pain. However, the patient is not oriented to person, place, or time. She is in hospice for Alzheimer's and also has a diagnosis of schizoaffective disorder. Per EMS, the [facility] states that she is at baseline. However, her son states that she is usually able to communicate. We are consult for orthopedic evaluation. She is admitted to our service for surgical intervention. Past Medical History Past Medical History: Dementia, Memory Impairment Additional Past Medical History / Comment(s): forgetful per son, unsure about some of her health hx., had problem in past w/GI bleeding or rectal bleeding?, recent sleep study done. History of Any Multi-Drug Resistant Organisms: None Reported Additional Past Surgical History / Comment(s): oral surgy on palate. , left partial thyroidectomy, left hip repair Past Anesthesia/Blood Transfusion Reactions: Unable to Obtain Additional Past Anesthesia/Blood Transfusion Reaction / Comment(s): . Past Psychological History: Anxiety, Schizoaffective Disorder Smoking Status: Unknown if ever smoked Past Alcohol Use History: None Reported Past Drug Use History: None Reported - Past Family History Mother Family Medical History: No Reported History Medications and Allergies Home Medications Medication Instructions Recorded Confirmed Type Primidone [Mysoline] 50 mg PO TID@0800,1200,1800 11/17/17 01/11/22 History Furosemide [Lasix] 20 mg PO DAILY 07/11/20 01/11/22 History Potassium Chloride ER [K-Dur 10] 10 meq PO DAILY 07/11/20 01/11/22 History Propranolol [Inderal] 20 mg PO BID 07/11/20 01/11/22 History haloperidoL [Haldol] 1 mg PO TID@0500,1200,2000 07/11/20 01/11/22 History predniSONE 5 mg PO BID 07/11/20 01/11/22 History LORazepam [Ativan] 0.5 mg PO Q6H PRN 01/11/22 01/11/22 History Linagliptin [Tradjenta] 5 mg PO HS 01/11/22 01/11/22 History Allergies Allergy/AdvReac Type Severity Reaction Status Date / Time No Known Allergies Allergy Verified 01/11/22 17:29 Physical Examination This is an 86-year-old female who is unable to communicate. She has end-stage Alzheimer's dementia. There is obvious shortening to the right lower extremity. Pedal pulse is +2/4. Capillary refill is less than 3 seconds. The remainder of her musculoskeletal exam is unremarkable. Results X-rays reveal a femoral neck fracture of the right hip. There is evidence of prior hemiarthroplasty of the left hip. - Labs Labs: Abnormal Lab Results - Last 24 Hours (Table) 01/11/22 01/11/22 01/11/22 Range/Units 17:27 17:27 17:27 WBC 11.2 H (3.8-10.6) k/uL Neutrophils # 9.9 H (1.3-7.7) k/uL Lymphocytes # 0.6 L (1.0-4.8) k/uL Sodium 133 L (137-145) mmol/L BUN 24 H (7-17) mg/dL Glucose 150 H (74-99) mg/dL AST 49 H (14-36) U/L ALT 36 H (4-34) U/L Creatine Kinase (30-135) U/L Troponin I 0.139 H* (0.000-0.034) ng/mL 01/11/22 01/11/22 01/12/22 Range/Units 18:52 23:21 01:58 WBC (3.8-10.6) k/uL Neutrophils # (1.3-7.7) k/uL Lymphocytes # (1.0-4.8) k/uL Sodium (137-145) mmol/L BUN (7-17) mg/dL Glucose (74-99) mg/dL AST (14-36) U/L ALT (4-34) U/L Creatine Kinase 670 H (30-135) U/L Troponin I 0.194 H* 0.231 H* (0.000-0.034) ng/mL H & H 01/11/22 Range/Units 17:27 Hgb 12.9 (11.4-16.0) gm/dL Hct 37.5 (34.0-46.0) % Result Diagrams: 01/11/22 17:27 01/11/22 17:27 Assessment and Plan Assessment: Acute femoral neck fracture right hip. End-stage Alzheimer's dementia. Plan: The clinical and x-ray findings are discussed with the patient's nurse. She has been seen by cardiology this morning. She is cleared with high risk. I also spoke with Dr. Gutierrez who states that she is cleared from his standpoint. The patient is scheduled for hemiarthroplasty of the right hip.
[2022-01-12] MEDS ORDERED: TRANEXAMIC ACID IN NACL,ISO-OS 1,000 MG/100 ML BAG ONE (09:29)
[2022-01-12] MEDS ORDERED: SODIUM CHLORIDE 0.9% 1,000 ML IV ONE (09:29)
[2022-01-12] MEDS ORDERED: PHENYLEPHRINE-0.9% NACL SYG 1,000 MCG/10 ML SYRINGE ONE (09:29)
[2022-01-12] MEDS ORDERED: PROPOFOL 10 MG/ML 20 ML VIAL IV ONE (09:29)
[2022-01-12] MEDS ORDERED: MIDAZOLAM 2 MG/2 ML VIAL ONE (09:29)
[2022-01-12] MEDS ORDERED: KETAMINE 10 MG/ML 20 ML VIAL ONE (09:29)
[2022-01-12] MEDS ORDERED: TRANEXAMIC ACID IN NACL,ISO-OS 1,000 MG in SALINE 1 100ML.BAG IVPB STA ×2 (09:34→09:36)
--- NOTE | 2022-01-12 09:34 | P.OP ---
Date of Procedure: 01/12/22 Procedure(s) Performed: PREOPERATIVE DIAGNOSIS: Right hip femoral neck fracture POSTOPERATIVE DIAGNOSIS: Right hip femoral neck fracture OPERATION: Right hip cemented unipolar hemiarthroplasty. ANESTHESIA: Spinal ESTIMATED BLOOD LOSS: 100 ml. MASONRY SUPERVISOR: Pamela Nicole PA-C (assistance with: patient positioning, retraction, exposure, hemostasis, leg positioning, implantation, irrigation, closure, dressing) COMPLICATIONS: None apparent. COMPONENTS IMPLANTED: Lazaro LDFx cemented femoral stem; unipolar femoral head; neck extension augments as needed. INDICATIONS: Emily is an 86-year-old female with dementia with a history of falling and sustaining a femoral neck fracture. I have recommended surgical treatment with a cemented unipolar hemiarthroplasty. I have discussed this procedure in detail and explained the potential risks and complications as being inclusive of, but not limited to: Bleeding, infection, scarring, discomfort, blood vessel and/or nerve damage, limb length inequality, gait disturbance, blood clot, pulmonary embolism, , and other risks. The consent form has been signed via phone consent with the power of die set up worker. PROCEDURE: After appropriate consent was obtained, the patient was taken to the operating room and placed in supine position. Spinal anesthetic was administered and after confirmation of adequate anesthesia, the patient was placed into the lateral decubitus position with the affected side up. Care was taken to make sure that all pressure points were adequately padded and a Bud hip positioner was utilized for positioning. The hip was prepped and draped in the usual aseptic fashion using a combination of Chloraprep and alcohol. Ioban drape was used for the case and the patient received intravenous antibiotics prior to the incision. 1 g intravenous tranexamic acid was administered around the time of the prepping and draping, and another 1 g was administered at the time of closure. The incision was created directly over the greater trochanter and carried slightly posteriorly for a posterior approach to the hip. The incision was then deepened down to subcutaneous tissue and fascia phillip. Fascia phillip was split in line with the incision and split proximally along the fibers of the gluteus osorio. The underlying fibers of the muscle were teased apart using finger dissection and bleeding vessels were picked up and coagulated. Retractor was then placed posteriorly consisting of a blunt Winner. The short external rotato rs and capsule were exposed and good visualization of the attachment of the external rotators to the femur was established. The short external rotators and capsule were released using electrocautery from their femoral attachments. A hockey stick shaped incision was created in the capsule. Joint fluid and hemarthrosis was evacuated and the patient's hip was internally rotated to expose the fracture site. The femoral neck cut was created approximately 1 cm superior to the lesser trochanter using a reciprocating saw. The femoral head and neck fragment was removed and visualization and palpation of the acetabular vault showed intact hyaline cartilage with no bone exposure or significant degeneration. Attention was then directed back to the proximal femur. Retractors were placed around the proximal femur and box osteotome was used followed by canal finder and trochanteric reamer. Cylindrical reaming was performed. Progressive broaching was then performed starting with a #10 broach and progressing final size, in a position of 10-15 degrees anteversion. [place] anteversion was within 5 degrees of stem position. The final size broach had excellent fit and fill of the patient's metaphysis and diaphysis. Calcar planing was performed. Trial reduction was then performed starting with appropriately sized femoral head and various neck extensions to evaluate stability, limb length equality, and soft tissue tension. Once these parameters were satisfactory, the corresponding final components were then called for. Trial components were removed. The femoral canal was sized for the centralizer and cement plug. Once the cement plug had been inserted distal to the planned length of the femoral component, the canal was pulse lavaged and brushed to remove any unstable bone. It was then dried with a lap sponge. Cement was mixed under vacuum conditions to decrease porosity and inserted into a cement gun. Distal centralizer was placed onto the femoral component with a bit of cement. The cement was allowed to reach a slightly doughy consistency and then the canal was filled retrograde with the cement gun. Thumb pressurization was performed three times. The femoral component was then inserted with the previously determined degree of anteversion. Excess cement was removed before it hardened completely. The femoral head was then impacted onto the Elizabeth taper. Blood and debris were removed from the acetabular socket and the hip was then reduced and checked for stability, limb length and soft tissue tension. These parameters were found to be satisfactory; the wound was then thoroughly irrigated with normal saline. Final hemostasis was obtained using electrocautery. Closure of the capsule was performed meticulously using #3 Vicryl suture. Four [id number] sutures were placed in the posterior capsule along with repair of the external rotators. The fascia phillip was then repaired using combination of #3 Vicryl suture in interrupted fashion and Quill in running fashion. 2-0 Vicryl suture was used for the subcutaneous tissues and 3-0 Quill for the skin. Dermabond tape was then applied. The patient tolerated the procedure well. There were no complications and the wound bed was dry and there was no need for drain placement. Sterile dressing was then applied and the patient was carefully removed from the operating room table, placed on the stretcher and was taken to the recovery room in stable condition. Sponge and needle counts were correct.
[2022-01-12] MEDS ORDERED: SODIUM CHLORIDE 0.9% 50 ML with ceFAZolin 1,000 MG IV ONE ×2 (09:41)
--- NOTE | 2022-01-12 10:59 | HP ---
HISTORY AND PHYSICAL Patient is here tremor and dementia and multiple falls at the assisted. Apparently she was found at the side of the bed. She came to the hospital and was found to have a hip fracture. I discussed the case with the son yesterday. EKG was normal in the ER and she probably should go through with the hip surgery. The son sees her discussed that he agreed to take her. She had a recent echo a couple of years ago that was normal. Her EKG was normal. She had a borderline elevated troponin that could have been from trauma or elevated renal function, etc., but she is cleared for surgery as far as I can see. PAST MEDICAL HISTORY: As mentioned above. Fourteen-point review of systems as mentioned above; otherwise negative. Medications: See list. PHYSICAL EXAMINATION: Vital signs are stable. Blood pressure 120s over 50s, heart rate in the 90s respiratory rate 16 to 18, temperature 99. Oxygenation is 94 on 2 L. HEENT: Normocephalic, atraumatic. Lungs are clear. Heart S1, S2. Abdomen is soft. Extremities: She has one leg shorter than the other. Tenderness to palpation over the hip area. She is pleasantly confused, gives appropriate answers. LABS: White count is 11.2, sodium 133, BUN is 24, creatinine , white count 11.2. She has a right femur fracture, status post fall. I see no reason why she cannot get surgery. Her elevated troponins showed no acute coronary event. Recent echo a couple of years ago was normal. She has end-stage Alzheimer's, schizoaffective. She has increased risk for surgery, but there is no absolute contraindication. I agree she should get surgery done if she has any chance of walking. Discussed the case with her son, who sees her, who agreed do surgery. She is clear as far as I am concerned. MMODL / IJN: [id number] /
[2022-01-12] MEDS ORDERED: MAGNESIUM HYDROXIDE 2,400 MG/10 ML CUP PO PRN (11:18)
[2022-01-12] MEDS ORDERED: HYDROmorphone 0.5 MG/0.5 ML SYRINGE IVP PRN ×3 (11:18)
[2022-01-12] MEDS ORDERED: NALOXONE 0.4 MG/ML 1 ML VIAL IV PRN (11:18)
[2022-01-12] MEDS ORDERED: HYDROcodone/APAP 5-325MG 1 EACH TAB PO PRN ×2 (11:18)
[2022-01-12] MEDS: LACTATED RINGERS 1,000 ML IV SCH ×2 (11:56→22:15)
--- NOTE | 2022-01-12 12:07 | XR ---
EXAMINATION TYPE: XR Hip Limited RT DATE OF EXAM: 01/12/2022 11:59 AM INDICATION: Patient age:Female; 86 years old; Reason for study: Status post hip surgery, assess surgical alignment; COMPARISON: Radiograph 01/11/2022. TECHNIQUE: The right hip was examined in the frontal projection. FINDINGS: Right hip arthroplasty changes with hardware intact. No evidence ofNo evidence of any acute osseous pathology, joint dislocation, or soft tissue swelling. IMPRESSION: Right hip arthroplasty without evidence of fracture.
[2022-01-12] MEDS: PRIMIDONE 50 MG TAB PO SCH ×3 (12:12→17:33)
[2022-01-12] MEDS: FUROSEMIDE 20 MG TAB PO SCH (12:12)
[2022-01-12] MEDS: POTASSIUM CHLORIDE ER 10 MEQ TAB.ER.PRT PO SCH (12:12)
[2022-01-12 12:13] LABS: T4, Free (Free Thyroxine) 1.13 ng/dL (0.78-2.19)
[2022-01-12] MEDS: PROPRANOLOL 20 MG TAB PO SCH ×2 (12:13→21:24)
[2022-01-12] MEDS: predniSONE 5 MG TAB PO SCH ×2 (12:13→22:00)
[2022-01-12 17:27] LABS: Chol/HDL Ratio 2.71 Ratio; LDL Cholesterol,Calculated 151.2 mg/dL (0.0-131.0)
[2022-01-12] MEDS: LINAGLIPTIN 5 MG TABLET PO SCH (22:00)
[2022-01-12] MEDS: ASPIRIN 81 MG PO SCH (22:00)
[2022-01-12] MEDS: SENNOSIDES-DOCUSATE SODIUM 1 EACH TAB PO SCH (22:00)
[2022-01-13] MEDS: haloperidoL 1 MG TAB PO SCH ×3 (06:57→20:08)
[2022-01-13] MEDS: LACTATED RINGERS 1,000 ML IV SCH ×2 (07:12→17:21)
[2022-01-13 08:58] LABS: ALT 17 U/L (4-34); AST 48 U/L (14-36); African American GFR (CKD) >90 (>60 ml/min/1.73 sqM); Albumin 2.5 g/dL (3.5-5.0); Alkaline Phosphatase 75 U/L (38-126); Anion Gap 4 mmol/L; Blood Urea Nitrogen 19 mg/dL (7-17); Calcium 7.8 mg/dL (8.4-10.2); Carbon Dioxide 26 mmol/L (22-30); Chloride 107 mmol/L (98-107); Creatine Kinase 527 U/L (30-135); Glucose 113 mg/dL (74-99); Non-African American GFR(CKD) >90 (>60 ml/min/1.73 sqM); Potassium 3.4 mmol/L (3.5-5.1); Sodium 137 mmol/L (137-145); Total Bilirubin 0.7 mg/dL (0.2-1.3); Total Protein 4.7 g/dL (6.3-8.2)
[2022-01-13 09:09] LABS: Basophils % (A) 0 %; Eosinophils # (A) 0.1 k/uL (0-0.7); Eosinophils % (A) 1 %; HCT 27.6 % (34.0-46.0); Lymphocytes # (A) 0.4 k/uL (1.0-4.8); Lymphocytes % (A) 6 %; MCH 33.7 pg (25.0-35.0); MCHC 33.7 g/dL (31.0-37.0); Mean Platelet Volume 7.8; Monocytes # (A) 0.3 k/uL (0-1.0); Monocytes % (A) 5 %; Neutrophils # (A) 5.4 k/uL (1.3-7.7); Neutrophils % (A) 87 %; Platelet Count 120 k/uL (150-450); RBC 2.76 m/uL (3.80-5.40); RDW 12.4 % (11.5-15.5); WBC 6.3 k/uL (3.8-10.6)
[2022-01-13 09:11] LABS: HGB 9.3 gm/dL (11.4-16.0)
[2022-01-13] MEDS: predniSONE 5 MG TAB PO SCH ×2 (09:33→20:08)
[2022-01-13] MEDS: FUROSEMIDE 20 MG TAB PO SCH (09:33)
[2022-01-13] MEDS: PROPRANOLOL 20 MG TAB PO SCH ×2 (09:33→20:08)
[2022-01-13] MEDS: PRIMIDONE 50 MG TAB PO SCH ×3 (09:33→17:19)
[2022-01-13] MEDS: ASPIRIN 81 MG PO SCH ×2 (09:33→20:08)
[2022-01-13] MEDS: SODIUM CHLORIDE 0.9% 1,000 ML IV SCH ×2 (09:35→23:47)
--- NOTE | 2022-01-13 10:20 | P.PN ---
Subjective Progress Note Date: 01/13/22 This is a pleasantly confused 86-year-old female patient who is unable to communicate adequately to obtain history. According to the chart she has a history of Alzheimer's and schizoaffective disorder and has been on hospice at [facility]. She had a fall yesterday morning that was not witnes sed. Subsequently underwent x-rays which showed acute impacted subcapital fracture of the right femur. She was transferred via EMS to [facility]. We were asked to see the patient in consultation for elevated troponin as well as preoperative clearance. Patient underwent an echocardiogram in June 2020 which showed a normal LV systolic function, mild AI, mild TR and mild pulmonary hypertension. At that time she did undergo left hip arthroplasty following a fall and fracture. This admission laboratory values showed elevated troponin of 0.139, 0.194, and 0.231. EKG has a poor baseline due to patient's underlying tremor but there is no obvious evidence of ischemia. Chest x-ray showed no active cardiopulmonary disease, normal heart, no change. Current medications include Lasix 20 mg daily, Ativan, Tradjenta, potassium, primidone, propranolol 20 mg by mouth twice a day, Haldol and prednisone. 01/13/2022 Patient was seen and examined this morning resting comfortably in bed. She appears more comfortable. She has less tremor this morning. She is minimally responsive with 1-2 word answers only and at times inappropriate. She is status post right hip cement unipolar hemiarthroplasty done yesterday with spinal anesthesia. Blood pressure is marginal. Objective - Vital Signs Vital signs: Vital Signs Temp 98.3 F 01/13/22 04:00 Pulse 97 01/13/22 04:00 Resp 18 01/13/22 04:00 BP 101/53 01/13/22 04:00 Pulse Ox 97 01/13/22 04:00 FiO2 Intake & Output 01/12/22 01/13/22 01/13/22 18:59 06:59 18:59 Intake Total 1250 1150 Output Total 100 625 Balance 1150 525 Intake: IV 1250 1000 Lactated Ringers 1,000 ml 300 1000 @ 100 mls/hr IV .Q10H [facility] Rx#:[id number] Intake, IV Titration 50 Amount ceFAZolin 2 gm In Sodium 50 Chloride 0.9% 50 ml @ 100 mls/hr IVPB Q8HR [facility] Rx# :[id number] Oral 100 Output: Urine 625 Straight 425 Estimated Blood Loss 100 Other: Voiding Method External Catheter External Catheter # Voids 0 - Exam HEENT: Head is atraumatic, normocephalic. Pupils are equal, round. Sclerae anicteric. Conjunctivae are clear. Mucous membranes of the mouth are moist. Neck is supple. There is no elevated jugular venous pressure. No carotid bruit is heard. CHEST EXAMINATION: Clear to auscultation bilaterally. No wheezes rales or rhonchi. Respirations even and nonlabored. HEART EXAMINATION: Heart regular, positive S1 and S2. No S3. No S4. Grade III/ Systolic ejection murmur. ABDOMEN: Soft, nontender. Bowel sounds are heard. No organomegaly noted. EXTREMITIES: 1+ peripheral pulses with no evidence of peripheral edema and no calf tenderness noted. NEUROLOGIC EXAMINATION: Patient is awake, oriented to. - Labs CBC & Chem 7: 01/13/22 08:11 01/13/22 08:11 Labs: Abnormal Lab Results - Last 24 Hours (Table) 01/12/22 01/12/22 01/12/22 Range/Units 08:29 08:29 08:29 Potassium (3.5-5.1) mmol/L BUN (7-17) mg/dL Creatinine (0.52-1.04) mg/dL Glucose (74-99) mg/dL Hemoglobin A1c 6.1 H (0.0-6.0) % Calcium (8.4-10.2) mg/dL AST (14-36) U/L Creatine Kinase (30-135) U/L Troponin I 0.221 H* (0.000-0.034) ng/mL Total Protein (6.3-8.2) g/dL Albumin (3.5-5.0) g/dL Cholesterol 279.00 H (0.00-200.00) mg/dL LDL Cholesterol, Calc 151.2 H (0.0-131.0) mg/dL HDL Cholesterol 103.00 H (40.00-60.00) mg/dL TSH 0.382 L (0.465-4.680) mIU/L 01/13/22 Range/Units 08:11 Potassium 3.4 L (3.5-5.1) mmol/L BUN 19 H (7-17) mg/dL Creatinine 0.45 L (0.52-1.04) mg/dL Glucose 113 H (74-99) mg/dL Hemoglobin A1c (0.0-6.0) % Calcium 7.8 L (8.4-10.2) mg/dL AST 48 H (14-36) U/L Creatine Kinase 527 H (30-135) U/L Troponin I (0.000-0.034) ng/mL Total Protein 4.7 L (6.3-8.2) g/dL Albumin 2.5 L (3.5-5.0) g/dL Cholesterol (0.00-200.00) mg/dL LDL Cholesterol, Calc (0.0-131.0) mg/dL HDL Cholesterol (40.00-60.00) mg/dL TSH (0.465-4.680) mIU/L Assessment and Plan Assessment: #1 Right Femur Fracture status post fall, status post right hip cemented unipolar hemiarthroplasty, postop day 1 #2 elevated troponins with no clear evidence of acute coronary event #3 systolic ejection murmur with no evidence of significant valvular abnormality on echocardiogram from 06/2020 #4 end stage Alzheimer's dementia #5 schizoaffective disorder Plan: From cardiology perspective we anticipate the patient will be transferred back to extended care facility for hospice care in the next 24-48 hours. We'll continue to follow the patient postoperatively and provide further recommendations accordingly. CLOTH GRADER SUPERVISOR note has been reviewed, I agree with a documented findings and plan of care. Patient was seen and examined.
--- NOTE | 2022-01-13 10:52 | P.PN ---
Subjective Progress Note Date: 01/13/22 Principal diagnosis: Right hip fracture. Status post hemiarthroplasty right hip. This is an 86-year-old female who is postop day #1 status post hemiarthroplasty of the right hip. She is stable from an orthopedic standpoint. Vital signs are stable. Objective - Vital Signs Vital signs: Vital Signs Temp 98.5 F 01/13/22 08:00 Pulse 84 01/13/22 08:00 Resp 18 01/13/22 08:00 BP 112/61 01/13/22 08:00 Pulse Ox 97 01/13/22 08:00 FiO2 Intake & Output 01/12/22 01/13/22 01/13/22 18:59 06:59 18:59 Intake Total 1250 1150 Output Total 100 625 Balance 1150 525 Intake: IV 1250 1000 Lactated Ringers 1,000 ml 300 1000 @ 100 mls/hr IV .Q10H [facility] Rx#:[id number] Intake, IV Titration 50 Amount ceFAZolin 2 gm In Sodium 50 Chloride 0.9% 50 ml @ 100 mls/hr IVPB Q8HR [facility] Rx# :[id number] Oral 100 Output: Urine 625 Straight 425 Estimated Blood Loss 100 Other: Voiding Method External Catheter External Catheter Diaper # Voids 0 - Exam This is an 86-year-old female in no acute distress. She is resting soundly. Exam of the right hip reveals that her dressing is clean, dry and intact. Pedal pulse is +2/4. Capillary refill is less than 3 seconds. - Labs CBC & Chem 7: 01/13/22 08:11 01/13/22 08:11 Labs: Abnormal Lab Results - Last 24 Hours (Table) 01/12/22 01/12/22 01/13/22 Range/Units 08:29 08:29 08:11 RBC 2.76 L (3.80-5.40) m/uL Hgb 9.3 L D (11.4-16.0) gm/dL Hct 27.6 L (34.0-46.0) % Plt Count 120 L (150-450) k/uL Lymphocytes # 0.4 L (1.0-4.8) k/uL Potassium (3.5-5.1) mmol/L BUN (7-17) mg/dL Creatinine (0.52-1.04) mg/dL Glucose (74-99) mg/dL Hemoglobin A1c 6.1 H (0.0-6.0) % Calcium (8.4-10.2) mg/dL AST (14-36) U/L Creatine Kinase (30-135) U/L Total Protein (6.3-8.2) g/dL Albumin (3.5-5.0) g/dL Cholesterol 279.00 H (0.00-200.00) mg/dL LDL Cholesterol, Calc 151.2 H (0.0-131.0) mg/dL HDL Cholesterol 103.00 H (40.00-60.00) mg/dL TSH 0.382 L (0.465-4.680) mIU/L 01/13/22 Range/Units 08:11 RBC (3.80-5.40) m/uL Hgb (11.4-16.0) gm/dL Hct (34.0-46.0) % Plt Count (150-450) k/uL Lymphocytes # (1.0-4.8) k/uL Potassium 3.4 L (3.5-5.1) mmol/L BUN 19 H (7-17) mg/dL Creatinine 0.45 L (0.52-1.04) mg/dL Glucose 113 H (74-99) mg/dL Hemoglobin A1c (0.0-6.0) % Calcium 7.8 L (8.4-10.2) mg/dL AST 48 H (14-36) U/L Creatine Kinase 527 H (30-135) U/L Total Protein 4.7 L (6.3-8.2) g/dL Albumin 2.5 L (3.5-5.0) g/dL Cholesterol (0.00-200.00) mg/dL LDL Cholesterol, Calc (0.0-131.0) mg/dL HDL Cholesterol (40.00-60.00) mg/dL TSH (0.465-4.680) mIU/L Assessment and Plan Assessment: Acute femoral neck fracture right hip. End-stage Alzheimer's dementia. Postop hemiarthroplasty right hip. Plan: The clinical and x-ray findings are discussed with the patient's nurse. Continue current care. She may be transferred back to hospice when cleared medically.
[2022-01-13] MEDS: POTASSIUM CHLORIDE ER 10 MEQ TAB.ER.PRT PO SCH (11:23)
[2022-01-13] MEDS ORDERED: Potassium Replacement Protocol 1 EACH MISC MISCELLANE PRN (12:52)
[2022-01-13] MEDS: POTASSIUM BICARBONATE/CIT AC 20 MEQ TABLET.EFF PO SCH ×3 (13:01→17:19)
[2022-01-13] MEDS: LINAGLIPTIN 5 MG TABLET PO SCH (20:08)
[2022-01-13] MEDS: SENNOSIDES-DOCUSATE SODIUM 1 EACH TAB PO SCH (20:08)
[2022-01-14] MEDS: LACTATED RINGERS 1,000 ML IV SCH ×2 (04:10→15:30)
[2022-01-14] MEDS: haloperidoL 1 MG TAB PO SCH ×2 (05:48→12:20)
[2022-01-14 08:14] VITALS: RESP 16; TEMP 96.8
[2022-01-14] MEDS: FUROSEMIDE 20 MG TAB PO SCH (08:18)
[2022-01-14] MEDS: POTASSIUM BICARBONATE/CIT AC 20 MEQ TABLET.EFF PO SCH (08:18)
[2022-01-14] MEDS: predniSONE 5 MG TAB PO SCH (08:18)
[2022-01-14] MEDS: PRIMIDONE 50 MG TAB PO SCH ×2 (08:18→12:20)
[2022-01-14] MEDS: ASPIRIN 81 MG PO SCH (08:18)
[2022-01-14] MEDS: PROPRANOLOL 20 MG TAB PO SCH (08:19)
--- NOTE | 2022-01-14 09:02 | P.PN ---
Subjective Progress Note Date: 01/14/22 Principal diagnosis: Right hip fracture. Status post hemiarthroplasty right hip. This is an 86-year-old female who is postop day #2 status post hemiarthroplasty of the right hip. She is stable from an orthopedic standpoint. Vital signs are stable. Objective - Vital Signs Vital signs: Vital Signs Temp 96.8 F L 01/14/22 08:00 Pulse 89 01/14/22 08:00 Resp 16 01/14/22 08:00 BP 135/63 01/14/22 08:00 Pulse Ox 93 L 01/14/22 08:00 FiO2 Intake & Output 01/13/22 01/14/22 01/14/22 18:59 06:59 18:59 Intake Total 1090 680 Output Total 400 300 Balance 690 380 Intake: IV 750 600 Lactated Ringers 1,000 ml 750 600 @ 100 mls/hr IV .Q10H [facility] Rx#:[id number] Oral 340 80 Output: Urine 400 300 Other: Voiding Method Diaper Diaper Diaper External Catheter - Exam This is an 86-year-old female in no acute distress. She is resting soundly. Exam of the right hip reveals that her dressing is clean, dry and intact. Pedal pulse is +2/4. Capillary refill is less than 3 seconds. - Labs CBC & Chem 7: 01/13/22 08:11 01/13/22 08:11 Labs: Abnormal Lab Results - Last 24 Hours (Table) 01/13/22 Range/Units 08:11 RBC 2.76 L (3.80-5.40) m/uL Hgb 9.3 L D (11.4-16.0) gm/dL Hct 27.6 L (34.0-46.0) % Plt Count 120 L (150-450) k/uL Lymphocytes # 0.4 L (1.0-4.8) k/uL Assessment and Plan Assessment: Acute femoral neck fracture right hip. End-stage Alzheimer's dementia. Postop hemiarthroplasty right hip. (1) Subcapital fracture of right femur Current Visit: Yes Status: Acute Code(s): S72.011A - UNSP INTRACAPSULAR FRACTURE OF RIGHT FEMUR, INIT FOR CLOS FX SNOMED Code(s): 040506330 (2) Closed left hip fracture Current Visit: No Status: Acute Code(s): S72.002A - FRACTURE OF UNSP PART OF NECK OF LEFT FEMUR, INIT SNOMED Code(s): 816053271 Plan: The clinical and x-ray findings are discussed with the patient's nurse. Continue current care. She may be transferred back to hospice today if cleared medically.
--- NOTE | 2022-01-14 09:10 | P.DS ---
Providers Date of admission: 01/11/22 17:45 Expected date of discharge: 01/14/22 Attending physician: Boom Malhotra Consults: 01/11/22 18:41 Consult Physician Urgent Consulting Provider: Titus Gutierrez Consult Reason/Comments: Medical management Do you want consulting provider notified?: Already Contacted 01/11/22 19:04 Consult Physician Urgent Consulting Provider: Bonifacio Burns Consult Reason/Comments: Elevated troponin, cannot obtain history from patient Do you want consulting provider notified?: Yes Primary care physician: Titus Gutierrez - Discharge Diagnosis(es) (1) Subcapital fracture of right femur Current Visit: Yes Status: Acute (2) Closed left hip fracture Current Visit: No Status: Acute Hospital Course: This is an 86-year-old female who presented on 01/11/2022 after falling and sustaining injury to the right hip. On exam and x-ray in the emergency department she was found to have a hip fracture. The pt is admitted to our service for surgical intervention and care. The patient is taken to surgery for hemiarthroplasty of the right hip. The procedure is performed without complication or sequelae. The patient is doing well postoperatively. Vital signs are stable on postop day #2. There are no new complaints or concerns. The patient is discharged to inpatient rehab pending medical clearance today. [facility] for accurate list of medications. Patient Condition at Discharge: Stable Plan - Discharge Summary New Discharge Prescriptions: New HYDROcodone/APAP 5-325MG [Lawtey 5-325] 1 tab PO Q6HR PRN #32 tab PRN Reason: Pain Aspirin [Adult Low Dose Aspirin EC] 81 mg PO BID #1 tab Sennosides-Docusate Sodium [Senokot-S] 1 tab PO BID #60 tablet No Action Primidone [Mysoline] 50 mg PO TID@0800,1200,1800 Propranolol [Inderal] 20 mg PO BID predniSONE 5 mg PO BID haloperidoL [Haldol] 1 mg PO TID@0500,1200,2000 Potassium Chloride ER [K-Dur 10] 10 meq PO DAILY Furosemide [Lasix] 20 mg PO DAILY LORazepam [Ativan] 0.5 mg PO Q6H PRN PRN Reason: Anxiety Linagliptin [Tradjenta] 5 mg PO HS Discharge Medication List Primidone [Mysoline] 50 mg PO TID@0800,1200,1800 11/17/17 [History] Furosemide [Lasix] 20 mg PO DAILY 07/11/20 [History] Potassium Chloride ER [K-Dur 10] 10 meq PO DAILY 07/11/20 [History] Propranolol [Inderal] 20 mg PO BID 07/11/20 [History] haloperidoL [Haldol] 1 mg PO TID@0500,1200,2000 07/11/20 [History] predniSONE 5 mg PO BID 07/11/20 [History] LORazepam [Ativan] 0.5 mg PO Q6H PRN 01/11/22 [History] Linagliptin [Tradjenta] 5 mg PO HS 01/11/22 [History] Aspirin [Adult Low Dose Aspirin EC] 81 mg PO BID #1 tab 01/14/22 [Rx] HYDROcodone/APAP 5-325MG [Lawtey 5-325] 1 tab PO Q6HR PRN #32 tab 01/14/22 [Rx] Sennosides-Docusate Sodium [Senokot-S] 1 tab PO BID #60 tablet 01/14/22 [Rx] Follow up Appointment(s)/Referral(s): Pamela Nicole PAC [PHYSICIAN [employer]] - 4 Weeks Titus Gutierrez MD [Primary Care Provider] - 1-2 days Activity/Diet/Wound Care/Special Instructions: May bear weight as tolerated with walker. Keep Optifoam dressing intact 7 days. May shower. Discharge Disposition: [facility]
[2022-01-14 11:37] VITALS: BP 108/52; PULSE 75
[2022-01-14] MEDS: SODIUM CHLORIDE 0.9% 1,000 ML IV SCH (12:21)
[2022-01-14 12:30] LABS: Lyme IgG/IgM 0.02 Index
[2022-01-14 13:05] VITALS: BMI 16.5
--- NOTE | 2022-01-14 13:51 | PN ---
PROGRESS NOTE Status post right hip fracture ORIF. Hemoglobin is 9.3, white count 6.3. Potassium is low at 3.4. Sodium 137, BUN is 19, creatinine 0.45. Creatinine kinase remains elevated from 670-527. Suspect she has some early rhabdomyolysis. Cholesterol high at 279, LDL is 151. TSH low, T4 is okay. Hemoglobin A1c 61 for pre diabetes. Continue with Tradjenta for diabetes. Kidney function looks decent at this point, possibly give her cholesterol medicine. She will be hopefully [facility] to the [facility] as soon as she is appears to be stable from a medical standpoint. MMODL / IJN: [id number] /
--- NOTE | 2022-01-14 14:05 | P.PN ---
Subjective This is a pleasantly confused 86-year-old female patient who is unable to communicate adequately to obtain history. According to the chart she has a history of Alzheimer's and schizoaffective disorder and has been on hospice at [facility]. She had a fall yesterday morning that was not witnessed. Subsequently underwent x-rays which showed acute impacted subcapital fracture of the right femur. She was transferred via EMS to [facility]. We were asked to see the patient in consultation for elevated troponin as well as preoperative clearance. Patient underwent an echocardiogram in June 2020 which showed a normal LV systolic function, mild AI, mild TR and mild pulmonary hypertension. At that time she did undergo left hip arthroplasty following a fall and fracture. This admission laboratory values showed elevated troponin of 0.139, 0.194, and 0.231. EKG has a poor baseline due to patient's underlying tremor but there is no obvious evidence of ischemia. Chest x-ray showed no active cardiopulmonary disease, normal heart, no change. Patient was evaluated prior to surgery. 01/14/2022 Patient seen and examined at bedside, no acute distress. She underwent Right hip cemented unipolar hemiarthroplasty with Orthopedics 01/12/2022. She is alert, not oriented. She appears comfortable. Does not have any complaints besides some mild pain, unable to say where. PHYSICAL EXAM: VITAL SIGNS: Reviewed. GENERAL: In no acute distress. HEENT: Neck supple. No JVD LUNGS: Respirations even and unlabored. Lungs essentially clear to auscultation bilaterally. HEART:Regular rate and rhythm. S1 and S2 heard. ABDOMEN: Soft. Nondistended. Nontender. EXTREMITIES: Normal range of motion. No clubbing or cyanosis. Peripheral pulses intact. No lower extremity edema NEUROLOGIC: Awake and alert. Oriented x 1 ASSESSMENT Right Femur Fracture status post fall, preoperative clearance Status post Right hip cemented unipolar hemiarthroplasty on 01/12 Elevated troponins with no clear evidence of acute coronary event Systolic ejection murmur with no evidence of significant aortic valve disease on echocardiogram from 06/2020 End stage Alzheimer's dementia Schizoaffective disorder PLAN: From cardiology perspective no further changes at this time. Plan for patient to be discharged on hospice today. We will follow the patient as needed. Please reconsult if needed [employer] note has been reviewed, I agree with a documented findings and plan of care. Patient was seen and examined. Objective - Vital Signs Vital signs: Vital Signs Temp 97 F L 01/12/22 11:24 Pulse 96 01/12/22 15:06 Resp 16 01/12/22 15:06 BP 111/61 01/12/22 15:06 Pulse Ox 96 01/12/22 15:06 FiO2 Intake & Output 01/11/22 01/12/22 01/12/22 18:59 06:59 18:59 Intake Total 1250 Output Total 150 100 Balance -150 1150 Weight 45.132 kg 45.132 kg Intake: IV 1250 Lactated Ringers 1,000 ml 300 @ 100 mls/hr IV .Q10H DREW Rx#:[id number] Output: Urine 150 Estimated Blood Loss 100 Other: Voiding Method External Catheter External Catheter # Voids 1 - Labs CBC & Chem 7: 01/13/22 08:11 01/13/22 08:11 Labs: Abnormal Lab Results - Last 24 Hours (Table) 01/11/22 01/11/22 01/11/22 Range/Units 17:27 17:27 17:27 WBC 11.2 H (3.8-10.6) k/uL Neutrophils # 9.9 H (1.3-7.7) k/uL Lymphocytes # 0.6 L (1.0-4.8) k/uL Sodium 133 L (137-145) mmol/L BUN 24 H (7-17) mg/dL Glucose 150 H (74-99) mg/dL AST 49 H (14-36) U/L ALT 36 H (4-34) U/L Creatine Kinase (30-135) U/L Troponin I 0.139 H* (0.000-0.034) ng/mL TSH (0.465-4.680) mIU/L 01/11/22 01/11/22 01/12/22 Range/Units 18:52 23:21 01:58 WBC (3.8-10.6) k/uL Neutrophils # (1.3-7.7) k/uL Lymphocytes # (1.0-4.8) k/uL Sodium (137-145) mmol/L BUN (7-17) mg/dL Glucose (74-99) mg/dL AST (14-36) U/L ALT (4-34) U/L Creatine Kinase 670 H (30-135) U/L Troponin I 0.194 H* 0.231 H* (0.000-0.034) ng/mL TSH (0.465-4.680) mIU/L 01/12/22 01/12/22 Range/Units 08:29 08:29 WBC (3.8-10.6) k/uL Neutrophils # (1.3-7.7) k/uL Lymphocytes # (1.0-4.8) k/uL Sodium (137-145) mmol/L BUN (7-17) mg/dL Glucose (74-99) mg/dL AST (14-36) U/L ALT (4-34) U/L Creatine Kinase (30-135) U/L Troponin I 0.221 H* (0.000-0.034) ng/mL TSH 0.382 L (0.465-4.680) mIU/L
[2022-01-14] MEDS ORDERED: ATORVASTATIN 20 MG TAB PO SCH (21:00)
[2022-01-15] MEDS ORDERED: POTASSIUM CHLORIDE ER 20 MEQ TAB.ER PO SCH (09:00)
--- NOTE | 2022-01-17 10:09 | CDI ---
Documentation Clarification Form Date: 01/17/22 From: Concepcion Campbell Admit Date: 01/11/2022 05:45:00 PM Patient Name: Emily Esqueda Visit Number: [id number] Discharge Date: 01/14/2022 03:40:00 PM ATTENTION: The Clinical Documentation Specialists (CDI) and [facility] Coding Staff appreciate your assistance in clarifying documentation. Please respond to the clarification below the line at the bottom and electronically sign. The CDI & [facility] Coding staff will review the response and follow-up if needed. Please note: Queries are made part of the Legal Health Record. If you have any questions, please contact the author of this message via ITS. Dr. Boom Malhotra, Suspected rhabdomyolysis is documented by Dr Gutierrez in his 01/14 PN. Additional clarification regarding the type of rhabdomyolysis is requested. History/Risk Factors: right femoral fx, pulmonary htn, end stage Alzheimer's w dementia, DM T2, schizoaffective disorder Clinical Indicators: Chol 279.00, HDL 103.00, LDL Chol 151.2, Creatine Kinase 670, elevated Troponin I 0.139, 0.194, 0.231, 0.221 Treatment: Trend Troponin, EKG, cardiology consult Please clarify the type of rhabdomyolysis, if known: [ ] Traumatic rhabdomyolysis due to fall [ ] Traumatic rhabdomyolysis due to prolonged immobility [ ] Non traumatic rhabdomyolysis due to medication (please specify) [ ] Non traumatic rhabdomyolysis due to infection (please specify) [ ] Other, please specify [ x ] Unable to Determine MTDD
--- NOTE | 2022-01-22 12:51 | CDI ---
Documentation Clarification Form Date: 01/17/2022 10:09:00 AM From: Concepcion Campbell Admit Date: 01/11/2022 05:45:00 PM Patient Name: Emily Esqueda Visit Number: [id number] Discharge Date: 01/14/2022 03:40:00 PM ATTENTION: The Clinical Documentation Specialists (CDI) and [facility] Coding Staff appreciate your assistance in clarifying documentation. Please respond to the clarification below the line at the bottom and electronically sign. The CDI & [facility] Coding staff will review the response and follow-up if needed. Please note: Queries are made part of the Legal Health Record. If you have any questions, please contact the author of this message via ITS. Dr. Titus Gutierrez, Suspected rhabdomyolysis is documented in your 01/14 PN. Additional clarification regarding the type of rhabdomyolysis is requested. History/Risk Factors: right femoral fx, pulmonary htn, end stage Alzheimer's w dementia, DM T2, schizoaffective disorder Clinical Indicators: Chol 279.00, HDL 103.00, LDL Chol 151.2, Creatine Kinase 670, elevated Troponin I 0.139, 0.194, 0.231, 0.221 Treatment: Trend Troponin, EKG, cardiology consult Please clarify the type of rhabdomyolysis, if known: [ ] Traumatic rhabdomyolysis due to fall [ ] Traumatic rhabdomyolysis due to prolonged immobility [ ] Non traumatic rhabdomyolysis due to medication (please specify) [ ] Non traumatic rhabdomyolysis due to infection (please specify) [ ] Other, please specify [ ] Unable to Determine MTDD
--- NOTE | 2022-01-30 18:10 | PN ---
PROGRESS NOTE Traumatic rhabdomyolysis due to fall. MMODL / IJN: [id number] /
== END 2022-01-14 15:40 | DRG 956 ==
LOC: EC 15:54 → 4SSUR 17:45 → 3SCARD 19:25
PROVIDERS: ADMIT Orthopaedic Surgery; ATTEND Orthopaedic Surgery
PROC: 0SRR019 Replacement of Right Hip Joint, Femoral Surface with Metal Synthetic Substitute, Cemented, Open Approach (ICD-10-PCS; principal; 2022-01-12 09:00)
DX: S72.011A Unspecified intracapsular fracture of right femur, initial encounter for closed fracture (principal); T79.6XXA Traumatic ischemia of muscle, initial encounter; I27.20 Pulmonary hypertension, unspecified; I08.2 Rheumatic disorders of both aortic and tricuspid valves; G30.9 Alzheimer's disease, unspecified; F02.80 Dementia in other diseases classified elsewhere, unspecified severity, without behavioral disturbance, psychotic disturbance, mood disturbance, and anxiety; E11.9 Type 2 diabetes mellitus without complications; F25.9 Schizoaffective disorder, unspecified; Z66 Do not resuscitate; Z51.5 Encounter for palliative care; E89.0 Postprocedural hypothyroidism; I45.10 Unspecified right bundle-branch block; F41.9 Anxiety disorder, unspecified; R77.8 Other specified abnormalities of plasma proteins; R25.1 Tremor, unspecified; R29.6 Repeated falls; L21.9 Seborrheic dermatitis, unspecified; Z79.84 Long term (current) use of oral hypoglycemic drugs; Z79.899 Other long term (current) drug therapy; Z96.642 Presence of left artificial hip joint; Z91.81 History of falling; W19.XXXA Unspecified fall, initial encounter; Y92.122 Bedroom in nursing home as the place of occurrence of the external cause
CPT/HCPCS: 36415; 70450; 71045; 72100; 72125; 73501; 73502; 80053; 80061; 81003; 82550; 82607; 82746; 83036; 84439; 84443; 84484; 85025; 86618; 88305; 88311; 93005; 94760; 96361; 96374; 99285

== ENCOUNTER 2022-01-19 12:43 | Inpatient (IN) | payer MEDICARE, OTHER ==
[2022-01-19] MEDS ORDERED: SODIUM CHLORIDE 0.9% 1,000 ML IV STA (12:55)
[2022-01-19 13:30] LABS: Basophils % (A) 0 %; Eosinophils # (A) 0.1 k/uL (0-0.7); Eosinophils % (A) 2 %; HCT 26.8 % (34.0-46.0); HGB 9.1 gm/dL (11.4-16.0); Lymphocytes # (A) 0.8 k/uL (1.0-4.8); Lymphocytes % (A) 15 %; MCH 33.7 pg (25.0-35.0); MCHC 33.8 g/dL (31.0-37.0); MCV 99.6 fL (80.0-100.0); Monocytes # (A) 0.2 k/uL (0-1.0); Monocytes % (A) 5 %; Neutrophils % (A) 77 %; RDW 13.1 % (11.5-15.5); WBC 5.2 k/uL (3.8-10.6)
[2022-01-19 13:32] LABS: ALT 20 U/L (4-34); AST 31 U/L (14-36); African American GFR (CKD) >90 (>60 ml/min/1.73 sqM); Albumin 2.7 g/dL (3.5-5.0); Alkaline Phosphatase 82 U/L (38-126); Anion Gap 2 mmol/L; Blood Urea Nitrogen 12 mg/dL (7-17); Calcium 8.3 mg/dL (8.4-10.2); Carbon Dioxide 28 mmol/L (22-30); Chloride 106 mmol/L (98-107); Glucose 130 mg/dL (74-99); Magnesium 1.8 mg/dL (1.6-2.3); Non-African American GFR(CKD) >90 (>60 ml/min/1.73 sqM); Potassium 3.9 mmol/L (3.5-5.1); Sodium 136 mmol/L (137-145); Total Bilirubin 0.5 mg/dL (0.2-1.3); Total Protein 5.2 g/dL (6.3-8.2)
[2022-01-19 13:33] LABS: Platelet Count 282 k/uL (150-450)
[2022-01-19 13:42] LABS: Prothrombin Time 11.1 sec (9.0-12.0)
[2022-01-19 13:43] LABS: Partial Thromboplastin Time 21.3 sec (22.0-30.0)
[2022-01-19 13:44] LABS: Appearance,Urine Clear (Clear); Bacteria,Urine Rare /hpf; Bilirubin,Urine Negative (Negative); Blood,Urine Negative (Negative); Color,Urine Yellow; Glucose,Urine (UA) Negative (Negative); Hyaline Casts,Urine 1 /lpf (0-2); Ketones,Urine Negative (Negative); Leukocyte Esterase,Urine Small (Negative); Mucus,Urine Rare /hpf; Nitrite,Urine Negative (Negative); Protein,Urine Trace (Negative); RBC,Urine 2 /hpf (0-5); Squamous Epithelial Cell,Urine 1 /hpf (0-4); WBC,Urine 4 /hpf (0-5)
--- NOTE | 2022-01-19 14:17 | XR ---
EXAMINATION TYPE: XR pelvis AP view DATE OF EXAM: 01/19/2022 1:42 PM INDICATION: Patient age:Female; 86 years old; Reason for study: recent surgery; COMPARISON: Hip radiographs from 01/12/2022 01/11/2022 TECHNIQUE: The pelvis was examined in a single projection. FINDINGS: Bilateral hip prostheses. Hardware appears intact. No evidence of fracture and appearance s imilar alignment. There is no evidence of fracture or dislocation. There is no soft tissue abnormalit y. No abnormal calcifications are present. Multilevel degenerative changes of the lower spine. IMPRESSION: Bilateral hip arthroplasty without evidence for new acute fracture. Arthroplasties appears in similar alignment.
--- NOTE | 2022-01-19 14:18 | XR ---
EXAMINATION TYPE: XR chest 2V DATE OF EXAM: 01/19/2022 1:42 PM COMPARISON: Chest radiographs from 01/11/2010. TECHNIQUE: XR chest 2V Frontal and lateral views of the chest. CLINICAL INDICATION:Female, 86 years old with history of Weakness; FINDINGS: Layering pleural effusions posteriorly. Lungs/Pleura: There is no evidence of focal consolidation, or pneumothorax. Pulmonary vascularity: Unremarkable. Heart/mediastinum: Cardiomediastinal silhouette is prominent in size. Musculoskeletal: Degenerative changes of the shoulder joints. IMPRESSION: 1. No acute cardiopulmonary disease/process. 2. Suspected layering pleural effusions posteriorly.
--- NOTE | 2022-01-19 14:33 | CT ---
EXAMINATION TYPE: CT brain wo con CT DLP: 1134.4 mGycm, Automated exposure control for dose reduction was used. DATE OF EXAM: 01/19/2022 2:05 PM COMPARISON: Prior CT Brain from 01/11/2022. CLINICAL INDICATION:Female, 86 years old with history of altered mental status, Stroke left sided wea kness TECHNIQUE: Brain: Multiple axial CT images of the brain were obtained without IV contrast. FINDINGS: Brain: Extra-axial spaces: No abnormal extra-axial fluid collections. Ventricular system: Dilatation in proportion to cerebral atrophy. Cerebral parenchyma: No acute intraparenchymal hemorrhage or mass effect. The ruiz-white junction is well differentiated. Scattered hypoattenuating areas are seen within the white matter. Cerebellum: Unremarkable. Mass effect: No evidence of midline shift. Intracranial vasculature: Atherosclerotic calcifications of the intracranial vessels. Soft tissues: Normal. Calvarium/osseous structures: No depressed skull fracture. Paranasal sinuses and mastoid air cells: Mild scattered paranasal sinus disease. Visualized orbits: Orbital contents are intact. IMPRESSION: 1. No acute intracranial process. 2. Nonspecific white matter changes, likely secondary to chronic small vessel ischemic disease.
[2022-01-19] MEDS ORDERED: ASPIRIN 81 MG PO STA (15:33)
[2022-01-19] MEDS ORDERED: ONDANSETRON 4 MG/2 ML VIAL IVP PRN (15:56)
[2022-01-19] MEDS ORDERED: NALOXONE 0.4 MG/ML 1 ML VIAL IV PRN (15:56)
--- NOTE | 2022-01-19 16:00 | ED ---
General Adult HPI - General Chief complaint: Weakness Stated complaint: Weakness Time Seen by Provider: 01/19/22 12:53 Source: patient, EMS, RN notes reviewed, old records reviewed Mode of arrival: ambulatory Limitations: physical limitation - History of Present Illness Initial comments: Patient is an 86-year-old female with past medical history remarkable for dementia, hypertension, recent hip surgeries who presents to the emergency department complaining of altered mental status and failure to thrive. Was sent from her rehab facility. Patient has not been eating, drinking, taking her medications for the last 1-2 days. Per patient's son who is at bedside, she seems more agitated than normal. No known falls. Does have some bruising in her arms from prior IV starts. Does have a skin tear on her arm as well. No known fevers, chills, sick contacts. Patient is at her baseline, which is alert and oriented times one to 2. His no acute complaints right now. Presents for further evaluation at this time. - Related Data Home Medications Medication Instructions Recorded Confirmed Primidone [Mysoline] 50 mg PO TID@0800,1200,1800 11/17/17 01/19/22 Furosemide [Lasix] 20 mg PO DAILY 07/11/20 01/19/22 Propranolol [Inderal] 20 mg PO BID@0800,199907/11/20 01/19/22 haloperidoL [Haldol] 1 mg PO TID@0800,1300,199907/11/20 01/19/22 predniSONE 5 mg PO BID@0800,199907/11/20 01/19/22 Linagliptin [Tradjenta] 5 mg PO HS 01/11/22 01/19/22 Aspirin [Adult Low Dose Aspirin EC] 81 mg PO BID@0800,199901/19/22 01/19/22 Donepezil [Aricept] 5 mg PO DAILY 01/19/22 01/19/22 HYDROcodone/APAP 5-325MG [[place] 5] 1 tab PO Q6HR PRN 01/19/22 01/19/22 LORazepam [Ativan] 0.5 mg PO Q6H PRN 01/19/22 01/19/22 Memantine [Namenda] 5 mg PO HS@199901/19/22 01/19/22 Sennosides-Docusate Sodium 1 tab PO BID@0800,199901/19/22 01/19/22 [Senokot-S] Previous Rx's Medication Instructions Recorded Acetaminophen Tab [Tylenol] 650 mg PO Q6HR PRN tab 01/14/22 Potassium Chloride ER [K-Dur 20] 20 meq PO DAILY tab 01/14/22 Pravastatin Sodium [Pravachol] 20 mg PO HS 90 Days #90 tab 01/14/22 Allergies Allergy/AdvReac Type Severity Reaction Status Date / Time No Known Allergies Allergy Verified 01/19/22 13:12 Review of Systems ROS Statement: Those systems with pertinent positive or pertinent negative responses have been documented in the HPI. Review of Systems: CONST: Denies fever EYES: Denies blurry vision ENT: Denies nasal congestion C/V: Denies Chest pain RESP: Denies shortness of breath GI: Denies abdominal pain : Denies dysuria SKIN: Denies rash. MSK: Denies joint pain. NEURO: Denies headache ROS Other: All systems not noted in ROS Statement are negative. Past Medical History Past Medical History: Dementia, Memory Impairment Additional Past Medical History / Comment(s): forgetful per son, unsure about some of her health hx., had problem in past w/GI bleeding or rectal bleeding?, recent sleep study done. History of Any Multi-Drug Resistant Organisms: None Reported Additional Past Surgical History / Comment(s): oral surgy on palate. , left partial thyroidectomy Past Anesthesia/Blood Transfusion Reactions: Unable to Obtain Additional Past Anesthesia/Blood Transfusion Reaction / Comment(s): mom not there w/him-he's unsure, he doesn't know of any problems Past Psychological History: Anxiety, Schizoaffective Disorder Smoking Status: Unknown if ever smoked Past Alcohol Use History: None Reported Past Drug Use History: None Reported - Past Family History Mother Family Medical History: No Reported History General Exam - General Exam Comments Initial Comments: General: Appears in no acute distress. Patient is cachectic. Appears malnourished. HEAD: Normal with no signs of head trauma. EYES: PERRLA, EOMI, conjunctiva normal, no discharge. ENT: Hearing grossly intact, normal oropharynx. RESPIRATORY: Clear breath sounds bilaterally. No wheezes, rales, or rhonchi. C/V: Regular rate and rhythm. S1 and S2 auscultated, no edema, peripheral pulses 2+ and intact throughout ABD: Abd is soft, nontender, nondistended EXT: No obvious deformities. SKIN: Bruising over bilateral arms secondary to IV starts is suspected. Does have some skin tears over the right arm that seemed chronic. No bedsores. Patient's right hip surgical site is not tender, no skin changes, not warm. Appears to be healing well. No fluctuance. NEURO: Alert and oriented 2 which is baseline. No obvious neurological deficits otherwise. Moving all 4 extremities. Limitations: physical limitation Course Vital Signs 01/19/22 01/19/22 01/19/22 12:44 14:08 16:34 Temperature 98.2 F Pulse Rate 97 98 80 Respiratory 22 20 18 Rate Blood Pressure 130/80 132/67 121/55 O2 Sat by Pulse 95 99 94 L Oximetry Medical Decision Making - Medical Decision Making Based on the patient's presentation and physical exam, I'm concerned for failure to thrive. Cannot rule out other etiology for her change in mental status. Did discuss at length with the patient's son, who states that the patient p reviously was on hospice but was taken off. Remains DO NOT RESUSCITATE no code at this time. We will obtain CT of the head, as well as infectious labs, and cardiac labs. They're agreement with this plan. She'll be given a 1 L fluid bolus while she waits. Consent was in agreement this plan. Chest x-ray shows pleural effusions. Pelvis x-ray shows bilateral hip arthroplasties. Good alignment. Brain CT shows no acute intracranial process. Chronic changes present. EKG shows no signs of acute ischemia. Trace studies are remarkable for chronic anemia. Troponin is minimally elevated to 0.040 with a BNP slightly elevated at 2400. Without EKG changes, as well as minimal elevations with signs of volume overload and labs, we will discontinue extremity troponin for now. COVID-19 floor negative. Urinalysis is unremarkable. Electrolytes are otherwise are within normal limits. On reevaluation, patient's vital signs remained within normal limits. I discussed at length the patient's son that I would like to admit for monitoring. Patient's son was in agreement this plan. I discussed the case with the admitting team, Dr. Francis who accepted the patient. Patient was admitted in stable condition. - Lab Data Result diagrams: 01/19/22 13:10 01/19/22 13:10 Lab Results 01/19/22 01/19/22 01/19/22 Range/Units 13:10 13:10 13:10 WBC 5.2 (3.8-10.6) k/uL RBC 2.70 L (3.80-5.40) m/uL Hgb 9.1 L (11.4-16.0) gm/dL Hct 26.8 L (34.0-46.0) % MCV 99.6 (80.0-100.0) fL MCH 33.7 (25.0-35.0) pg MCHC 33.8 (31.0-37.0) g/dL RDW 13.1 (11.5-15.5) % Plt Count 282 D (150-450) k/uL MPV 7.0 Neutrophils % 77 % Lymphocytes % 15 % Monocytes % 5 % Eosinophils % 2 % Basophils % 0 % Neutrophils # 4.0 (1.3-7.7) k/uL Lymphocytes # 0.8 L (1.0-4.8) k/uL Monocytes # 0.2 (0-1.0) k/uL Eosinophils # 0.1 (0-0.7) k/uL Basophils # 0.0 (0-0.2) k/uL PT 11.1 (9.0-12.0) sec INR 1.0 (<1.2) APTT 21.3 L (22.0-30.0) sec Sodium 136 L (137-145) mmol/L Potassium 3.9 (3.5-5.1) mmol/L Chloride 106 (98-107) mmol/L Carbon Dioxide 28 (22-30) mmol/L Anion Gap 2 mmol/L BUN 12 (7-17) mg/dL Creatinine 0.43 L (0.52-1.04) mg/dL Est GFR (CKD-EPI)AfAm >90 (>60 ml/min/1.73 sqM) Est GFR (CKD-EPI)NonAf >90 (>60 ml/min/1.73 sqM) Glucose 130 H (74-99) mg/dL Plasma Lactic Acid David (0.7-2.0) mmol/L Calcium 8.3 L (8.4-10.2) mg/dL Magnesium 1.8 (1.6-2.3) mg/dL Total Bilirubin 0.5 (0.2-1.3) mg/dL AST 31 (14-36) U/L ALT 20 (4-34) U/L Alkaline Phosphatase 82 (38-126) U/L Troponin I (0.000-0.034) ng/mL NT-Pro-B Natriuret Pep pg/mL Total Protein 5.2 L (6.3-8.2) g/dL Albumin 2.7 L (3.5-5.0) g/dL Urine Color Urine Appearance (Clear) Urine pH (5.0-8.0) Ur Specific [place] (1.001-1.035) Urine Protein (Negative) Urine Glucose (UA) (Negative) Urine Ketones (Negative) Urine Blood (Negative) Urine Nitrite (Negative) Urine Bilirubin (Negative) Urine Urobilinogen (<2.0) mg/dL Ur Leukocyte Esterase (Negative) Urine RBC (0-5) /hpf Urine WBC (0-5) /hpf Ur Squamous Epith Cells (0-4) /hpf Urine Bacteria (None) /hpf Hyaline Casts (0-2) /lpf Urine Mucus (None) /hpf Coronavirus (PCR) (Not Detectd) Influenza Type A RNA (Not Detectd) Influenza Type B (PCR) (Not Detectd) 01/19/22 01/19/22 01/19/22 Range/Units 13:10 13:10 13:10 WBC (3.8-10.6) k/uL RBC (3.80-5.40) m/uL Hgb (11.4-16.0) gm/dL Hct (34.0-46.0) % MCV (80.0-100.0) fL MCH (25.0-35.0) pg MCHC (31.0-37.0) g/dL RDW (11.5-15.5) % Plt Count (150-450) k/uL MPV Neutrophils % % Lymphocytes % % Monocytes % % Eosinophils % % Basophils % % Neutrophils # (1.3-7.7) k/uL Lymphocytes # (1.0-4.8) k/uL Monocytes # (0-1.0) k/uL Eosinophils # (0-0.7) k/uL Basophils # (0-0.2) k/uL PT (9.0-12.0) sec INR (<1.2) APTT (22.0-30.0) sec Sodium (137-145) mmol/L Potassium (3.5-5.1) mmol/L Chloride (98-107) mmol/L Carbon Dioxide (22-30) mmol/L Anion Gap mmol/L BUN (7-17) mg/dL Creatinine (0.52-1.04) mg/dL Est GFR (CKD-EPI)AfAm (>60 ml/min/1.73 sqM) Est GFR (CKD-EPI)NonAf (>60 ml/min/1.73 sqM) Glucose (74-99) mg/dL Plasma Lactic Acid David 1.4 (0.7-2.0) mmol/L Calcium (8.4-10.2) mg/dL Magnesium (1.6-2.3) mg/dL Total Bilirubin (0.2-1.3) mg/dL AST (14-36) U/L ALT (4-34) U/L Alkaline Phosphatase (38-126) U/L Troponin I 0.040 H* (0.000-0.034) ng/mL NT-Pro-B Natriuret Pep 2430 pg/mL Total Protein (6.3-8.2) g/dL Albumin (3.5-5.0) g/dL Urine Color Urine Appearance (Clear) Urine pH (5.0-8.0) Ur Specific [place] (1.001-1.035) Urine Protein (Negative) Urine Glucose (UA) (Negative) Urine Ketones (Negative) Urine Blood (Negative) Urine Nitrite (Negative) Urine Bilirubin (Negative) Urine Urobilinogen (<2.0) mg/dL Ur Leukocyte Esterase (Negative) Urine RBC (0-5) /hpf Urine WBC (0-5) /hpf Ur Squamous Epith Cells (0-4) /hpf Urine Bacteria (None) /hpf Hyaline Casts (0-2) /lpf Urine Mucus (None) /hpf Coronavirus (PCR) (Not Detectd) Influenza Type A RNA (Not Detectd) Influenza Type B (PCR) (Not Detectd) 01/19/22 01/19/22 01/19/22 Range/Units 13:29 14:05 14:05 WBC (3.8-10.6) k/uL RBC (3.80-5.40) m/uL Hgb (11.4-16.0) gm/dL Hct (34.0-46.0) % MCV (80.0-100.0) fL MCH (25.0-35.0) pg MCHC (31.0-37.0) g/dL RDW (11.5-15.5) % Plt Count (150-450) k/uL MPV Neutrophils % % Lymphocytes % % Monocytes % % Eosinophils % % Basophils % % Neutrophils # (1.3-7.7) k/uL Lymphocytes # (1.0-4.8) k/uL Monocytes # (0-1.0) k/uL Eosinophils # (0-0.7) k/uL Basophils # (0-0.2) k/uL PT (9.0-12.0) sec INR (<1.2) APTT (22.0-30.0) sec Sodium (137-145) mmol/L Potassium (3.5-5.1) mmol/L Chloride (98-107) mmol/L Carbon Dioxide (22-30) mmol/L Anion Gap mmol/L BUN (7-17) mg/dL Creatinine (0.52-1.04) mg/dL Est GFR (CKD-EPI)AfAm (>60 ml/min/1.73 sqM) Est GFR (CKD-EPI)NonAf (>60 ml/min/1.73 sqM) Glucose (74-99) mg/dL Plasma Lactic Acid Daivd (0.7-2.0) mmol/L Calcium (8.4-10.2) mg/dL Magnesium (1.6-2.3) mg/dL Total Bilirubin (0.2-1.3) mg/dL AST (14-36) U/L ALT (4-34) U/L Alkaline Phosphatase (38-126) U/L Troponin I (0.000-0.034) ng/mL NT-Pro-B Natriuret Pep pg/mL Total Protein (6.3-8.2) g/dL Albumin (3.5-5.0) g/dL Urine Color Yellow Urine Appearance Clear (Clear) Urine pH 7.0 (5.0-8.0) Ur Specific [place] 1.020 (1.001-1.035) Urine Protein Trace H (Negative) Urine Glucose (UA) Negative (Negative) Urine Ketones Negative (Negative) Urine Blood Negative (Negative) Urine Nitrite Negative (Negative) Urine Bilirubin Negative (Negative) Urine Urobilinogen 6.0 (<2.0) mg/dL Ur Leukocyte Esterase Small H (Negative) Urine RBC 2 (0-5) /hpf Urine WBC 4 (0-5) /hpf Ur Squamous Epith Cells 1 (0-4) /hpf Urine Bacteria Rare H (None) /hpf Hyaline Casts 1 (0-2) /lpf Urine Mucus Rare H (None) /hpf Coronavirus (PCR) Not Detected (Not Detectd) Influenza Type A RNA Not Detected (Not Detectd) Influenza Type B (PCR) Not Detected (Not Detectd) - EKG Data -: EKG Interpreted by Me EKG Comments: 12-lead Electrocardiogram Interpretation Note EKG was reviewed and interpreted by myself. 12-lead ECG performed at 1553 is interpreted by me as revealing normal sinus rhythm with occasional PAC and right bundle branch block at a rate of 93 beats per minute. [place] is normal. VT I ntervals 170 ms, QRS duration is 109 ms, QTc is 414 ms.. There were no ST or T wave abnormalities to suggest myocardial ischemia or injury. R wave progression across the precordium was satisfactory. By my interpretation this EKG is non- diagnostic for acute ischemia. Disposition Clinical Impression: Dementia, Pleural effusion, Elevated troponin, Failure to thrive Disposition: ADMITTED IP TO THIS HOSP Condition: Stable Time of Disposition: 15:10
[2022-01-19] MEDS: SODIUM CHLORIDE 0.9% 1,000 ML IV SCH (16:38)
[2022-01-19] MEDS ORDERED: HYDROcodone/APAP 5-325MG 1 EACH TAB PO PRN (17:10)
--- NOTE | 2022-01-19 18:12 | P.HPIM ---
History of Present Illness H&P Date: 01/19/22 Chief Complaint: Adult failure to thrive Dementia who was admitted to the hospital 2 weeks prior to this admission for hip fracture and was discharged to skilled rehab facility; patient is brought in by a complaint by patient's family reporting poor oral intake for past 2 week since being discharged from hospital; patient was getting peak lethargic and family decided to patient to ED; patient unable to provide any history so all of this visit patient's chart; patient does have history of Alzheimer's dementia and schizoaffective disorder EKG was reviewed- normal sinus rhythm with occasional PAC and right bundle branch block at a rate of 93 beats per minute. [place] is normal. ID Intervals 170 ms, QRS duration is 109 ms, QTc is 414 ms.. There were no ST or T wave abn ormalities to suggest myocardial ischemia or injury. R wave progression across the precordium was satisfactory. By my interpretation this EKG is non-diagnostic for acute ischemia. Blood work completed in ED reveals a diabetes of 5.0, hemoglobin of 9.1, platelet count of 282, sodium 136 on presentation 9, BUN 12 creatinine of 0.43 and blood glucose of 1:30; creatinine mildly elevated at 0.04 Patient is being admitted to hospital for adult failure to thrive Review of Systems REVIEW OF SYSTEMS: CONSTITUTIONAL: No fever, no malaise, no fatigue. HEENT: No recent visual problems or hearing problems. Denied any sore throat. CARDIOVASCULAR: No chest pain, orthopnea, PND, no palpitations, no syncope. PULMONARY: No shortness of breath, no cough, no hemoptysis. GASTROINTESTINAL: No diarrhea, no nausea, no vomiting, no abdominal pain. NEUROLOGICAL: No headaches, no weakness, no numbness. HEMATOLOGICAL: Denies any bleeding or petechiae. GENITOURINARY: Denies any burning micturition, frequency, or urgency. MUSCULOSKELETAL/RHEUMATOLOGICAL: Denies any joint pain, swelling, or any muscle pain. ENDOCRINE: Denies any polyuria or polydipsia. The rest of the 14-point review of systems is negative. Past Medical History Past Medical History: Dementia, Memory Impairment Additional Past Medical History / Comment(s): forgetful per son, unsure about some of her health hx., had problem in past w/GI bleeding or rectal bleeding?, recent sleep study done. History of Any Multi-Drug Resistant Organisms: None Reported Additional Past Surgical History / Comment(s): oral surgy on palate. , left partial thyroidectomy Past Anesthesia/Blood Transfusion Reactions: Unable to Obtain Additional Past Anesthesia/Blood Transfusion Reaction / Comment(s): mom not there w/him-he's unsure, he doesn't know of any problems Past Psychological History: Anxiety, Schizoaffective Disorder Smoking Status: Unknown if ever smoked Past Alcohol Use History: None Reported Past Drug Use History: None Reported - Past Family History Mother Family Medical History: No Reported History Additional Family Medical History / Comment(s): alzheimers Medications and Allergies Home Medications Medication Instructions Recorded Confirmed Type Primidone [Mysoline] 50 mg PO TID@0800,1200,1800 11/17/17 01/19/22 History Furosemide [Lasix] 20 mg PO DAILY 07/11/20 01/19/22 History Propranolol [Inderal] 20 mg PO BID@0800,199907/11/20 01/19/22 History haloperidoL [Haldol] 1 mg PO TID@0800,1300,199907/11/20 01/19/22 History predniSONE 5 mg PO BID@0800,199907/11/20 01/19/22 History Linagliptin [Tradjenta] 5 mg PO HS 01/11/22 01/19/22 History Acetaminophen Tab [Tylenol] 650 mg PO Q6HR PRN tab 01/14/22 01/19/22 Rx Potassium Chloride ER [K-Dur 20] 20 meq PO DAILY tab 01/14/22 01/19/22 Rx Pravastatin Sodium [Pravachol] 20 mg PO HS 90 Days #90 tab 01/14/22 01/19/22 Rx Aspirin [Adult Low Dose Aspirin EC] 81 mg PO BID@0800,199901/19/22 01/19/22 History Donepezil [Aricept] 5 mg PO DAILY 01/19/22 01/19/22 History HYDROcodone/APAP 5-325MG [[place] 5] 1 tab PO Q6HR PRN 01/19/22 01/19/22 History LORazepam [Ativan] 0.5 mg PO Q6H PRN 01/19/22 01/19/22 History Memantine [Namenda] 5 mg PO HS@199901/19/22 01/19/22 History Sennosides-Docusate Sodium 1 tab PO BID@0800,199901/19/22 01/19/22 History [Senokot-S] Allergies Allergy/AdvReac Type Severity Reaction Status Date / Time No Known Allergies Allergy Verified 01/19/22 13:12 Physical Exam Vitals: Vital Signs Temp Pulse Pulse Resp BP BP Pulse Ox 01/19/22 17:37 99.3 F 95 128/69 98 01/19/22 16:34 80 18 121/55 94 L 01/19/22 14:08 98 20 132/67 99 01/19/22 12:44 98.2 F 97 22 130/80 95 Intake and Output 01/19/22 01/19/22 01/19/22 06:59 14:59 22:59 Other: Weight 45.359 kg 45.359 kg PHYSICAL EXAMINATION: GENERAL: The patient is alert and oriented x3, not in any acute distress. Well developed, well nourished. HEENT: Pupils are round and equally reacting to light. EOMI. No scleral icterus. No conjunctival pallor. Normocephalic, atraumatic. No pharyngeal erythema. No thyromegaly. CARDIOVASCULAR: S1 and S2 present. No murmurs, rubs, or gallops. PULMONARY: Chest is clear to auscultation, no wheezing or crackles. ABDOMEN: Soft, nontender, nondistended, normoactive bowel sounds. No palpable organomegaly. MUSCULOSKELETAL: No joint swelling or deformity. EXTREMITIES: No cyanosis, clubbing, or pedal edema. NEUROLOGICAL: Gross neurological examination did not reveal any focal deficits. SKIN: No rashes. Results CBC & Chem 7: 01/19/22 13:10 01/19/22 13:10 Labs: Abnormal Lab Results - Last 24 Hours (Table) 01/19/22 01/19/22 01/19/22 Range/Units 13:10 13:10 13:10 RBC 2.70 L (3.80-5.40) m/uL Hgb 9.1 L (11.4-16.0) gm/dL Hct 26.8 L (34.0-46.0) % Lymphocytes # 0.8 L (1.0-4.8) k/uL APTT 21.3 L (22.0-30.0) sec Sodium 136 L (137-145) mmol/L Creatinine 0.43 L (0.52-1.04) mg/dL Glucose 130 H (74-99) mg/dL Calcium 8.3 L (8.4-10.2) mg/dL Troponin I (0.000-0.034) ng/mL Total Protein 5.2 L (6.3-8.2) g/dL Albumin 2.7 L (3.5-5.0) g/dL Urine Protein (Negative) Ur Leukocyte Esterase (Negative) Urine Bacteria (None) /hpf Urine Mucus (None) /hpf 01/19/22 01/19/22 Range/Units 13:10 13:29 RBC (3.80-5.40) m/uL Hgb (11.4-16.0) gm/dL Hct (34.0-46.0) % Lymphocytes # (1.0-4.8) k/uL APTT (22.0-30.0) sec Sodium (137-145) mmol/L Creatinine (0.52-1.04) mg/dL Glucose (74-99) mg/dL Calcium (8.4-10.2) mg/dL Troponin I 0.040 H* (0.000-0.034) ng/mL Total Protein (6.3-8.2) g/dL Albumin (3.5-5.0) g/dL Urine Protein Trace H (Negative) Ur Leukocyte Esterase Small H (Negative) Urine Bacteria Rare H (None) /hpf Urine Mucus Rare H (None) /hpf Thrombosis Risk Factor Assmnt - Choose All That Apply Any of the Below Risk Factors Present?: Yes Other Risk Factors: Yes Each Risk Factor Represents 3 Points: Age 75 years or older Thrombosis Risk Factor Assessment Total Risk Factor Score: 3 Thrombosis Risk Factor Assessment Level: Moderate Risk Assessment and Plan Assessment: 1. Elevated troponin; rule out acute coronary syndrome - We will monitor and trend troponin; monitor EKG; further recommendations pending results will consult cardiology if troponin continues to trend up 2. Adult failure to thrive; According to family patient has had absolutely no oral intake for past 3-4 days; we will start patient on IV fluid hydration with normal saline; monitor renal function and electrolytes 3. 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 Dementia; patient takes Aricept 5 mg daily and Namenda 5 mg daily at bedtime 5. Hyperlipidemia; pravastatin 20 g by mouth daily at bedtime
[2022-01-19] MEDS: haloperidoL 1 MG TAB PO SCH (19:23)
[2022-01-19] MEDS: PRIMIDONE 50 MG TAB PO SCH ×2 (19:23→21:30)
[2022-01-19] MEDS: MEMANTINE 5 MG TAB PO SCH ×2 (19:23→21:31)
[2022-01-19] MEDS: PROPRANOLOL 20 MG TAB PO SCH (19:35)
[2022-01-19] MEDS: SENNOSIDES-DOCUSATE SODIUM 1 EACH TAB PO SCH (19:35)
[2022-01-19] MEDS: predniSONE 5 MG TAB PO SCH (19:35)
[2022-01-19] MEDS: ASPIRIN 81 MG PO SCH (19:35)
[2022-01-19 20:23] LABS: Glucose,Whole Blood 148 mg/dL (70-110)
[2022-01-19] MEDS ORDERED: HEPARIN SODIUM,PORCINE/PF 5,000 UNIT/0.5 ML SYRINGE SQ SCH (21:00)
[2022-01-19] MEDS: PRAVASTATIN SODIUM 20 MG TAB PO SCH (21:29)
[2022-01-19] MEDS: LINAGLIPTIN 5 MG TABLET PO SCH (21:29)
[2022-01-19] MEDS ORDERED: HEPARIN SODIUM 1,000 UN/ML (10ML VL) IV PRN (23:43)
[2022-01-19] MEDS ORDERED: HEPARIN SODIUM 1,000 UN/ML (10ML VL) IV ONE (23:43)
[2022-01-20] MEDS ORDERED: HEPARIN SOD,PORK IN 0.45% NACL 25,000 UNIT in 0.45% NACL 1 250ML.BAG IV SCH
[2022-01-20] MEDS: LORazepam 1 MG/0.5 ML VIAL IV PRN ×2 (00:50→18:22)
[2022-01-20 06:31] LABS: INR 1.1 (<1.2); Partial Thromboplastin Time 54.4 sec (22.0-30.0); Prothrombin Time 12.2 sec (9.0-12.0)
[2022-01-20 07:36] LABS: Glucose,Whole Blood 114 mg/dL (70-110)
[2022-01-20] MEDS: predniSONE 5 MG TAB PO SCH ×2 (07:40→22:02)
[2022-01-20] MEDS: PRIMIDONE 50 MG TAB PO SCH ×3 (07:40→17:42)
[2022-01-20] MEDS: ASPIRIN 81 MG PO SCH ×2 (07:40→22:02)
[2022-01-20] MEDS: PROPRANOLOL 20 MG TAB PO SCH ×2 (07:41→22:03)
[2022-01-20] MEDS: FUROSEMIDE 20 MG TAB PO SCH (07:41)
[2022-01-20] MEDS: POTASSIUM CHLORIDE ER 20 MEQ TAB.ER PO SCH (07:41)
[2022-01-20] MEDS: SENNOSIDES-DOCUSATE SODIUM 1 EACH TAB PO SCH ×2 (07:41→22:03)
[2022-01-20] MEDS: DONEPEZIL 5 MG TAB PO SCH (07:47)
[2022-01-20] MEDS: SODIUM CHLORIDE 0.9% 1,000 ML IV SCH ×2 (07:47→22:27)
[2022-01-20] MEDS: haloperidoL 1 MG TAB PO SCH ×3 (07:47→22:02)
--- NOTE | 2022-01-20 09:07 | P.CRDCN ---
History of Present Illness History of present illness: This is a pleasantly confused 86-year-old female patient with a past medical history of recent Right Femur Fracture status post fall, status post Right hip cemented unipolar hemiarthroplasty on 01/12, Alzheimer's and schizoaffective disorder and has been on hospice previously at [facility]. She was brought to the ER secondary to family concerned for patient's decreased oral in take, more lethargic. Patient was recently discharged to rehab facility on 01/14/2022 after an unwitnessed fall. She ended up suffering form right femur fracture and underwent surgery with orthopedics. Patient apparently has not been eating or drinking or taking medications for 1-2 days. She is lethargic but alert, oriented to person. She is a poor historian, unable to describe why she is in the hospital or any symptoms. Vitals signs are stable, she is lying comfortably flat in bed, no acute distress. DIAGNOSTICS * EKG sinus rhythm, heart rate 93, right bundle branch block, non-specific ST-T wave abnormalities. Poor baseline due to patient's underlying tremor but there is no obvious evidence of ischemia. * Laboratory data: WBC 5.2, hemoglobin 9.1, platelets 282, troponin 0.04, 0.05, 0.26, sodium 136, potassium 3.9, BUN 12, serum creatinine 0.4, magnesium 1.8 * Current home medications prednisone, Haldol, propanolol 20 mg twice a day, pravastatin 20 mg nightly, potassium chloride, Namenda, Tradjenta, Ativan, Lasix 20 mg daily, aspirin 81 mg daily * Patient underwent an echocardiogram in June 2020 which showed a normal LV systolic function, mild AI, mild TR and mild pulmonary hypertension. REVIEW OF SYSTEMS: Unable to obtain accurate review of systems secondary to patient's mental status PHYSICAL EXAM: VITAL SIGNS: Reviewed. GENERAL: Confused. No acute distress HEENT: Head is normocephalic. Pupils are equal, round. Sclerae anicteric. Mucous membranes of the mouth are dry Neck supple. No JVD or thyromegaly LUNGS: Respirations even and unlabored. Lungs essentially clear to auscultation bilaterally. HEART: regular rate and rhythm. S1 and S2 heard. Systolic murmur noted. ABDOMEN: Soft. Nondistended. Nontender. EXTREMITIES: Normal range of motion. No clubbing or cyanosis. Peripheral pulses intact. trace bilateral ankle lower extremity edema. NEUROLOGIC: Awake and alert. Oriented x 1 ASSESSMENT Altered mental status Failure to thrive Recent Right Femur Fracture status post fall, status post Right hip cemented unipolar hemiarthroplasty on 01/12 Elevated troponins with no clear evidence of acute coronary event Systolic ejection murmur with no evidence of significant aortic valve disease on echocardiogram from 06/2020 End stage Alzheimer's dementia History of Schizoaffective disorder PLAN: No further inpatient workup from a cardiology perspective for elevated troponin. Recommend medical treatment. Discontinue IV heparin drip. Rest of management per primary. Please reach out with any further questions or concerns. FIELD OPERATIONS TECHNICIAN note has been reviewed, I agree with a documented findings and plan of care. Patient was seen and examined. Past Medical History Past Medical History: Dementia, Memory Impairment Additional Past Medical History / Comment(s): forgetful per son, unsure about some of her health hx., had problem in past w/GI bleeding or rectal bleeding?, recent sleep study done. History of Any Multi-Drug Resistant Organisms: None Reported Additional Past Surgical History / Comment(s): oral surgy on palate. , left partial thyroidectomy Past Anesthesia/Blood Transfusion Reactions: Unable to Obtain Additional Past Anesthesia/Blood Transfusion Reaction / Comment(s): mom not there w/him-he's unsure, he doesn't know of any problems Past Psychological History: Anxiety, Schizoaffective Disorder Smoking Status: Unknown if ever smoked Past Alcohol Use History: None Reported Past Drug Use History: None Reported - Past Family History Mother Family Medical History: No Reported History Additional Family Medical History / Comment(s): alzheimers Medications and Allergies Home Medications Medication Instructions Recorded Confirmed Type Primidone [Mysoline] 50 mg PO TID@0800,1200,1800 11/17/17 01/19/22 History Furosemide [Lasix] 20 mg PO DAILY 07/11/20 01/19/22 History Propranolol [Inderal] 20 mg PO BID@0800,199907/11/20 01/19/22 History haloperidoL [Haldol] 1 mg PO TID@0800,1300,199907/11/20 01/19/22 History predniSONE 5 mg PO BID@0800,199907/11/20 01/19/22 History Linagliptin [Tradjenta] 5 mg PO HS 01/11/22 01/19/22 History Acetaminophen Tab [Tylenol] 650 mg PO Q6HR PRN tab 01/14/22 01/19/22 Rx Potassium Chloride ER [K-Dur 20] 20 meq PO DAILY tab 01/14/22 01/19/22 Rx Pravastatin Sodium [Pravachol] 20 mg PO HS 90 Days #90 tab 01/14/22 01/19/22 Rx Aspirin [Adult Low Dose Aspirin EC] 81 mg PO BID@08,199901/19/22 01/19/22 History Donepezil [Aricept] 5 mg PO DAILY 01/19/22 01/19/22 History HYDROcodone/APAP 5-325MG [[place] 5] 1 tab PO Q6HR PRN 01/19/22 01/19/22 History LORazepam [Ativan] 0.5 mg PO Q6H PRN 01/19/22 01/19/22 History Memantine [Namenda] 5 mg PO HS@199901/19/22 01/19/22 History Sennosides-Docusate Sodium 1 tab PO BID@08,199901/19/22 01/19/22 History [Senokot-S] Allergies Allergy/AdvReac Type Severity Reaction Status Date / Time No Known Allergies Allergy Verified 01/19/22 13:12 Physical Exam Vitals: Vital Signs Temp Pulse Pulse Resp BP BP BP 01/20/22 07:00 99.9 F H 87 24 100/59 01/20/22 02:00 93 22 01/20/22 00:49 98.7 F 93 28 H 119/69 01/19/22 20:00 100 28 H 01/19/22 19:20 98.2 F 105 H 26 H 125/72 01/19/22 17:37 99.3 F 95 128/69 01/19/22 16:34 80 18 121/55 01/19/22 14:08 98 20 132/67 01/19/22 12:44 98.2 F 97 22 130/80 Pulse Ox 01/20/22 07:00 89 L 01/20/22 02:00 01/20/22 00:49 97 01/19/22 20:00 01/19/22 19:20 96 01/19/22 17:37 98 01/19/22 16:34 94 L 01/19/22 14:08 99 01/19/22 12:44 95 Intake and Output 01/19/22 01/20/22 01/20/22 22:59 06:59 14:59 Intake Total 24.116 Balance 24.116 Intake: Intake, IV Titration 24.116 Amount Heparin Sod,Pork in 0.45% 24.116 NaCl 25,000 unit In 0.45 % NaCl 1 250ml.bag @ 10 UNITS/KG/HR 4.536 mls/hr IV .Q24H [facility] Rx#: [id number] Other: Voiding Method Diaper Diaper Incontinent Incontinent # Voids 1 1 Weight 45.359 kg Results 01/19/22 13:10 01/19/22 13:10 Cardiac Enzymes 01/19/22 01/19/22 01/19/22 Range/Units 13:10 13:10 18:04 AST 31 (14-36) U/L Troponin I 0.040 H* 0.058 H* (0.000-0.034) ng/mL 01/19/22 Range/Units 21:44 AST (14-36) U/L Troponin I 0.263 H* (0.000-0.034) ng/mL Coagulation 01/19/22 01/20/22 01/20/22 Range/Units 13:10 00:11 05:46 PT 11.1 12.2 H (9.0-12.0) sec APTT 21.3 L 26.4 54.4 H (22.0-30.0) sec CBC 01/19/22 Range/Units 13:10 WBC 5.2 (3.8-10.6) k/uL RBC 2.70 L (3.80-5.40) m/uL Hgb 9.1 L (11.4-16.0) gm/dL Hct 26.8 L (34.0-46.0) % Plt Count 282 D (150-450) k/uL Comprehensive Metabolic Panel 01/19/22 Range/Units 13:10 Sodium 136 L (137-145) mmol/L Potassium 3.9 (3.5-5.1) mmol/L Chloride 106 (98-107) mmol/L Carbon Dioxide 28 (22-30) mmol/L BUN 12 (7-17) mg/dL Creatinine 0.43 L (0.52-1.04) mg/dL Glucose 130 H (74-99) mg/dL Calcium 8.3 L (8.4-10.2) mg/dL AST 31 (14-36) U/L ALT 20 (4-34) U/L Alkaline Phosphatase 82 (38-126) U/L Total Protein 5.2 L (6.3-8.2) g/dL Albumin 2.7 L (3.5-5.0) g/dL Current Medications Generic Name Dose Route Start Last Admin Trade Name Freq PRN Reason Stop Dose Admin Hydrocodone Bitart/Acetaminophen 1 each 01/19/22 17:10 Hydrocodone/Apap 5-325mg 1 Each Tab PO Q6HR PRN Pain Aspirin 81 mg 01/19/22 20:00 01/20/22 07:40 Aspirin 81 Mg PO Not Given BID@0800,1999 DREW Donepezil HCl 5 mg 01/20/22 09:00 01/20/22 07:47 Donepezil 5 Mg Tab PO 5 mg DAILY DREW Administration Furosemide 20 mg 01/20/22 09:00 01/20/22 07:41 Furosemide 20 Mg Tab PO Not Given DAILY DREW Haloperidol 1 mg 01/19/22 20:00 01/20/22 07:47 Haloperidol 1 Mg Tab PO 1 mg TID@0800,1300,2000 DREW Administration Heparin Sodium (Porcine) 0 unit 01/19/22 23:43 Heparin Sodium 1,000 Un/Ml (10ml Vl) IV PER PROTOCOL PRN Low PTT Protocol Sodium Chloride 1,000 mls @ 75 mls/hr 01/19/22 16:00 01/20/22 07:47 Saline 0.9% IV 75 mls/hr .[id number] DREW Administration Heparin Sodium/Sodium Chloride 250 mls @ 4.536 mls/hr 01/20/22 00:00 01/20/22 06:42 25,000 unit/ Sodium Chloride IV 10 units/kg/hr .Q24H DREW 4.536 mls/hr Titration Protocol 10 UNITS/KG/HR Linagliptin 5 mg 01/19/22 21:00 01/19/22 21:29 Linagliptin 5 Mg Tablet PO Not Given HS DREW Lorazepam 0.5 mg 01/20/22 00:00 01/20/22 00:50 Lorazepam 1 Mg/0.5 Ml Vial IV 0.5 mg Q6HR PRN Administration Anxiety Memantine 5 mg 01/19/22 20:00 01/19/22 21:31 Memantine 5 Mg Tab PO Not Given HS@1999 [facility] Naloxone HCl 0.2 mg 01/19/22 15:56 Naloxone 0.4 Mg/Ml 1 Ml Vial IV Q2M PRN Opioid Reversal Ondansetron HCl 4 mg 01/19/22 15:56 Ondansetron 4 Mg/2 Ml Vial IVP Q8HR PRN Nausea And Vomiting Potassium Chloride 20 meq 01/20/22 09:00 01/20/22 07:41 Potassium Chloride Er 20 Meq Tab.Er PO Not Given DAILY [facility] Pravastatin Sodium 20 mg 01/19/22 21:00 01/19/22 21:29 Pravastatin Sodium 20 Mg Tab PO Not Given HS [facility] Prednisone 5 mg 01/19/22 20:00 01/20/22 07:40 Prednisone 5 Mg Tab PO Not Given BID@0800,1999 [facility] Primidone 50 mg 01/19/22 18:00 01/20/22 07:40 Primidone 50 Mg Tab PO Not Given TID@0800,1200,1800 [facility] Propranolol HCl 20 mg 01/19/22 20:00 01/20/22 07:41 Propranolol 20 Mg Tab PO Not Given BID@0800,1999 [facility] Senna/Docusate Sodium 1 each 01/19/22 20:00 01/20/22 07:41 Sennosides-Docusate Sodium 1 Each Tab PO Not Given BID@0800,1999 [facility] Intake and Output 01/19/22 01/20/22 01/20/22 22:59 06:59 14:59 Intake Total 24.116 Balance 24.116 Intake: Intake, IV Titration 24.116 Amount Heparin Sod,Pork in 0.45% 24.116 NaCl 25,000 unit In 0.45 % NaCl 1 250ml.bag @ 10 UNITS/KG/HR 4.536 mls/hr IV .Q24H [facility] Rx#: [id number] Other: Voiding Method Diaper Diaper Incontinent Incontinent # Voids 1 1 Weight 45.359 kg 01/19/22 13:10 01/19/22 13:10
[2022-01-20 09:10] LABS: Basophils # (A) 0.02 X 10*3/uL (0.00-0.10); Basophils % (A) 0.4 %; Eosinophils # (A) 0.06 X 10*3/uL (0.04-0.35); Eosinophils % (A) 1.1 %; HCT 21.8 % (37.2-46.3); HGB 7.1 g/dL (12.0-15.0); Immature Grans, Automated 1.5 %; Lymphocytes # (A) 0.84 X 10*3/uL (0.90-5.00); Lymphocytes % (A) 15.6 %; MCH 32.3 pg (27.0-32.0); MCHC 32.6 g/dL (32.0-37.0); MCV 99.1 fL (80.0-97.0); Mean Platelet Volume 9.4 fL (9.5-12.2); Monocytes # (A) 0.46 X 10*3/uL (0.20-1.00); Monocytes % (A) 8.6 %; NRBC Per 100 WBC 0 /100 WBCS (0.0-0.0); Neutrophils # (A) 3.91 X 10*3/uL (1.80-7.70); Neutrophils % (A) 72.8 %; Platelet Count 222 X 10*3/uL (140-440); RDW 12.4 % (11.5-14.5); WBC 5.37 X 10*3/uL (4.50-10.00)
[2022-01-20 09:27] LABS: African American GFR (CKD) 110.9 (60.0-200.0); Albumin 2.6 g/dL (3.8-4.9); Albumin/Globulin Ratio 1.53 (1.60-3.17); Blood Urea Nitrogen 7.6 mg/dL (9.0-27.0); Calcium 7.8 mg/dL (8.7-10.3); Globulin 1.7 g/dL (1.6-3.3); Non-African American GFR(CKD) 95.6 (60.0-200.0); Potassium 3.4 mmol/L (3.5-5.5); Total Bilirubin 0.4 mg/dL (0.30-1.20); Total Protein 4.3 g/dL (6.2-8.2)
[2022-01-20 14:26] VITALS: BMI 18.3
[2022-01-20 20:29] LABS: Glucose,Whole Blood 158 mg/dL (70-110)
[2022-01-20] MEDS: MEMANTINE 5 MG TAB PO SCH (22:02)
[2022-01-20] MEDS: PRAVASTATIN SODIUM 20 MG TAB PO SCH (22:03)
[2022-01-20] MEDS: LINAGLIPTIN 5 MG TABLET PO SCH (22:03)
[2022-01-21] MEDS: LORazepam 1 MG/0.5 ML VIAL IV PRN (05:19)
[2022-01-21] MEDS: SODIUM CHLORIDE 0.9% 1,000 ML IV SCH ×2 (05:19→22:01)
[2022-01-21 06:58] LABS: Glucose,Whole Blood 133 mg/dL (70-110)
--- NOTE | 2022-01-21 07:01 | PN ---
PROGRESS NOTE This is a white female who is up. She is trying to sit up in bed, status post hip replacement, decreased breath sounds, eating some today. Cardiovascular S1-S2. Lungs scattered rhonchi and wheeze. Hematology negative Homans. Psych: Fair mood affect. ASSESSMENT: 1. Status post hip fracture. 2. Dementia. 3. Chronic obstructive pulmonary disease. 4. Poor nutrition. Increase oral intake, PT/OT. Send back without hospice for more PT/OT status post hip fracture. Mental status is improving. MMODL / IJN: [id number] /
[2022-01-21 09:23] LABS: Basophils # (A) 0.03 X 10*3/uL (0.00-0.10); Basophils % (A) 0.6 %; Eosinophils # (A) 0.09 X 10*3/uL (0.04-0.35); Eosinophils % (A) 1.7 %; HCT 23.4 % (37.2-46.3); HGB 7.5 g/dL (12.0-15.0); Immature Grans, Automated 1.4 %; Lymphocytes # (A) 0.59 X 10*3/uL (0.90-5.00); Lymphocytes % (A) 11.4 %; MCH 32.1 pg (27.0-32.0); MCHC 32.1 g/dL (32.0-37.0); Mean Platelet Volume 9.3 fL (9.5-12.2); Monocytes # (A) 0.36 X 10*3/uL (0.20-1.00); NRBC Per 100 WBC 0 /100 WBCS (0.0-0.0); Neutrophils # (A) 4.02 X 10*3/uL (1.80-7.70); Neutrophils % (A) 77.9 %; Platelet Count 235 X 10*3/uL (140-440); RBC 2.34 X 10*6/uL (4.10-5.20); RDW 12.5 % (11.5-14.5); WBC 5.16 X 10*3/uL (4.50-10.00)
[2022-01-21] MEDS ORDERED: LORazepam 0.5 MG TAB PO PRN (09:38)
[2022-01-21 11:54] LABS: Glucose,Whole Blood 117 mg/dL (70-110)
[2022-01-21] MEDS: haloperidoL 1 MG TAB PO SCH ×3 (15:34→22:00)
[2022-01-21] MEDS: ASPIRIN 81 MG PO SCH ×2 (15:35→22:01)
[2022-01-21] MEDS: PROPRANOLOL 20 MG TAB PO SCH ×2 (15:35→22:01)
[2022-01-21] MEDS: PRIMIDONE 50 MG TAB PO SCH ×3 (15:35→18:07)
[2022-01-21] MEDS: SENNOSIDES-DOCUSATE SODIUM 1 EACH TAB PO SCH ×2 (15:35→22:00)
[2022-01-21] MEDS: FUROSEMIDE 20 MG TAB PO SCH (15:35)
[2022-01-21] MEDS: DONEPEZIL 5 MG TAB PO SCH (15:35)
[2022-01-21] MEDS: predniSONE 5 MG TAB PO SCH ×2 (15:36→22:00)
[2022-01-21] MEDS: POTASSIUM CHLORIDE ER 20 MEQ TAB.ER PO SCH (15:38)
[2022-01-21 16:40] LABS: Glucose,Whole Blood 160 mg/dL (70-110)
[2022-01-21] MEDS: SODIUM FERRIC GLUCONAT-SUCROSE 125 MG in SODIUM CHLORIDE 0.9% 100 ML IVPB SCH (18:07)
--- NOTE | 2022-01-21 18:23 | PN ---
PROGRESS NOTE Family was able to feed her last night. She still has some confusion and dementia, but she is able to tolerate some oral liquids and foods. She is severely anemic; hemoglobin is 7.5. We are going to get Hematology involved, get PT/OT involved. She was trying to sit up in bed, trying to get out of bed last night. She is saturating 94 on room air. Blood pressure 134/78, pulse 96, respiratory rate 16 to 18, temperature 98.8. Cardiovascular S1-S2. Hematology negative Homans. Psych fair mood and affect. She is back on her primidone. She is back on her Tradjenta for diabetes, Namenda and Aricept for dementia. She takes Haldol for dementia with possible schizoaffective tendencies and psychosis. We are going to give her IV Venofer for her low hemoglobin, status post hip surgery, get PT/OT involved and possibly send her to the rehab center soon. Prognosis is guarded. Continue current treatment. Discussed with the daughter and son. She will go off hospice and just continue with PT/OT at the long term. MMODL / IJN: [id number] /
[2022-01-21] MEDS: MEMANTINE 5 MG TAB PO SCH (22:00)
[2022-01-21] MEDS: PRAVASTATIN SODIUM 20 MG TAB PO SCH (22:00)
[2022-01-21] MEDS: LINAGLIPTIN 5 MG TABLET PO SCH (22:00)
[2022-01-21 22:02] LABS: Glucose,Whole Blood 176 mg/dL (70-110)
[2022-01-21 23:10] LABS: % Iron Saturation 30.99 (12.00-45.00)
[2022-01-22 07:03] LABS: Glucose,Whole Blood 120 mg/dL (70-110)
[2022-01-22] MEDS: haloperidoL 1 MG TAB PO SCH ×3 (09:27→21:26)
[2022-01-22] MEDS: SENNOSIDES-DOCUSATE SODIUM 1 EACH TAB PO SCH ×2 (09:27→21:25)
[2022-01-22] MEDS: POTASSIUM CHLORIDE ER 20 MEQ TAB.ER PO SCH (09:27)
[2022-01-22] MEDS: PROPRANOLOL 20 MG TAB PO SCH ×2 (09:27→21:25)
[2022-01-22] MEDS: SODIUM FERRIC GLUCONAT-SUCROSE 125 MG in SODIUM CHLORIDE 0.9% 100 ML IVPB SCH (09:27)
[2022-01-22] MEDS: FUROSEMIDE 20 MG TAB PO SCH (09:28)
[2022-01-22] MEDS: PRIMIDONE 50 MG TAB PO SCH ×3 (09:28→18:14)
[2022-01-22] MEDS: predniSONE 5 MG TAB PO SCH ×2 (09:28→21:25)
[2022-01-22] MEDS: ASPIRIN 81 MG PO SCH ×2 (09:30→21:25)
[2022-01-22] MEDS: DONEPEZIL 5 MG TAB PO SCH (09:30)
[2022-01-22] MEDS: SODIUM CHLORIDE 0.9% 1,000 ML IV SCH (09:31)
[2022-01-22 10:38] LABS: Basophils % (A) 0 %; Eosinophils # (A) 0.2 k/uL (0-0.7); Eosinophils % (A) 2 %; HCT 28.8 % (34.0-46.0); HGB 9.7 gm/dL (11.4-16.0); Lymphocytes # (A) 0.6 k/uL (1.0-4.8); Lymphocytes % (A) 8 %; MCH 33.1 pg (25.0-35.0); MCHC 33.7 g/dL (31.0-37.0); MCV 98.3 fL (80.0-100.0); Mean Platelet Volume 7.1; Monocytes # (A) 0.3 k/uL (0-1.0); Monocytes % (A) 3 %; Neutrophils # (A) 6.5 k/uL (1.3-7.7); Neutrophils % (A) 85 %; Platelet Count 346 k/uL (150-450); RBC 2.93 m/uL (3.80-5.40); RDW 13.1 % (11.5-15.5); WBC 7.7 k/uL (3.8-10.6)
[2022-01-22 10:52] LABS: ALT 19 U/L (4-34); AST 33 U/L (14-36); African American GFR (CKD) >90 (>60 ml/min/1.73 sqM); Albumin 2.5 g/dL (3.5-5.0); Alkaline Phosphatase 76 U/L (38-126); Anion Gap 0 mmol/L; Blood Urea Nitrogen 4 mg/dL (7-17); Carbon Dioxide 29 mmol/L (22-30); Chloride 105 mmol/L (98-107); Globulin 2.4 g/dL; Glucose 145 mg/dL (74-99); Non-African American GFR(CKD) >90 (>60 ml/min/1.73 sqM); Potassium 3.4 mmol/L (3.5-5.1); Sodium 134 mmol/L (137-145); Total Bilirubin 0.4 mg/dL (0.2-1.3); Total Protein 4.9 g/dL (6.3-8.2)
[2022-01-22 10:53] LABS: LDH 875 U/L (313-618); Magnesium 1.6 mg/dL (1.6-2.3)
[2022-01-22 11:42] LABS: Reticulocyte % 5.8 % (0.5-2.0)
[2022-01-22 11:51] LABS: Glucose,Whole Blood 184 mg/dL (70-110)
[2022-01-22 13:02] LABS: Erythrocyte Sedimentation Rate 74 mm/hr (0-20)
--- NOTE | 2022-01-22 15:06 | P.CONS ---
History of Present Illness - Reason for Consult Consult date: 01/29/22 Anemiaa Requesting physician: Titus Gutierrez - History of Present Illness Patient is lethargic, frail female we have been asked to evaluate for anemia. She opens eyes to stimuli but does not respond, she is shaky. Review of Systems ROS unobtainable: due to mental status All systems: negative Past Medical History Past Medical History: Dementia, Memory Impairment Additional Past Medical History / Comment(s): forgetful per son, unsure about some of her health hx., had problem in past w/GI bleeding or rectal bleeding?, recent sleep study done. History of Any Multi-Drug Resistant Organisms: None Reported Additional Past Surgical History / Comment(s): oral surgy on palate. , left partial thyroidectomy Past Anesthesia/Blood Transfusion Reactions: Unable to Obtain Additional Past Anesthesia/Blood Transfusion Reaction / Comm: mom not there w/him-he's unsure, he doesn't know of any problems Past Psychological History: Anxiety, Schizoaffective Disorder Smoking Status: Unknown if ever smoked Past Alcohol Use History: None Reported Past Drug Use History: None Reported - Past Family History Mother Family Medical History: No Reported History Additional Family Medical History / Comment(s): alzheimers Medications and Allergies Home Medications Medication Instructions Recorded Confirmed Type Primidone [Mysoline] 50 mg PO TID@0800,1200,1800 11/17/17 01/19/22 History Furosemide [Lasix] 20 mg PO DAILY 07/11/20 01/19/22 History Propranolol [Inderal] 20 mg PO BID@0800,199907/11/20 01/19/22 History haloperidoL [Haldol] 1 mg PO TID@0800,1300,199907/11/20 01/19/22 History predniSONE 5 mg PO BID@0800,199907/11/20 01/19/22 History Linagliptin [Tradjenta] 5 mg PO HS 01/11/22 01/19/22 History Acetaminophen Tab [Tylenol] 650 mg PO Q6HR PRN tab 01/14/22 01/19/22 Rx Potassium Chloride ER [K-Dur 20] 20 meq PO DAILY tab 01/14/22 01/19/22 Rx Pravastatin Sodium [Pravachol] 20 mg PO HS 90 Days #90 tab 01/14/22 01/19/22 Rx Aspirin [Adult Low Dose Aspirin EC] 81 mg PO BID@0800,199901/19/22 01/19/22 History Donepezil [Aricept] 5 mg PO DAILY 01/19/22 01/19/22 History HYDROcodone/APAP 5-325MG [[place] 5] 1 tab PO Q6HR PRN 01/19/22 01/19/22 History LORazepam [Ativan] 0.5 mg PO Q6H PRN 01/19/22 01/19/22 History Memantine [Namenda] 5 mg PO HS@199901/19/22 01/19/22 History Sennosides-Docusate Sodium 1 tab PO BID@08,199901/19/22 01/19/22 History [Senokot-S] Allergies Allergy/AdvReac Type Severity Reaction Status Date / Time No Known Allergies Allergy Verified 01/19/22 13:12 Physical Exam Vitals: Vital Signs Temp Pulse Resp BP Pulse Ox 01/22/22 13:41 98 F 84 20 143/68 96 01/22/22 09:10 18 01/22/22 07:00 98.8 F 71 20 130/67 97 01/22/22 02:00 98.2 F 78 15 132/78 97 01/21/22 19:31 98.2 F 82 14 131/75 97 Intake and Output 01/22/22 01/22/22 01/22/22 06:59 14:59 22:59 Other: Voiding Method Diaper Diaper Incontinent Incontinent # Voids 1 4 Frail, Shaky Not responsive to questions thin NAD no rash Results CBC & Chem 7: 01/22/22 10:06 01/22/22 10:06 Labs: Abnormal Lab Results - Last 24 Hours (Table) 01/21/22 01/21/22 01/21/22 Range/Units 04:40 16:38 22:01 RBC (3.80-5.40) m/uL Hgb (11.4-16.0) gm/dL Hct (34.0-46.0) % Lymphocytes # (1.0-4.8) k/uL ESR (0-20) mm/hr Retic Count (0.5-2.0) % Sodium (137-145) mmol/L Potassium (3.5-5.1) mmol/L BUN (7-17) mg/dL Creatinine (0.52-1.04) mg/dL Glucose (74-99) mg/dL POC Glucose (mg/dL) 160 H 176 H (70-110) mg/dL Calcium (8.4-10.2) mg/dL Iron 49 L (50-170) ug/dL TIBC 157 L (228-460) ug/dL Transferrin 112.0 L (204.0-354.0) mg/dL Lactate Dehydrogenase (313-618) U/L Total Protein (6.3-8.2) g/dL Albumin (3.5-5.0) g/dL 01/22/22 01/22/22 01/22/22 Range/Units 07:02 10:06 10:06 RBC 2.93 L (3.80-5.40) m/uL Hgb 9.7 L (11.4-16.0) gm/dL Hct 28.8 L (34.0-46.0) % Lymphocytes # 0.6 L (1.0-4.8) k/uL ESR (0-20) mm/hr Retic Count (0.5-2.0) % Sodium 134 L (137-145) mmol/L Potassium 3.4 L (3.5-5.1) mmol/L BUN 4 L (7-17) mg/dL Creatinine 0.38 L (0.52-1.04) mg/dL Glucose 145 H (74-99) mg/dL POC Glucose (mg/dL) 120 H (70-110) mg/dL Calcium 8.0 L (8.4-10.2) mg/dL Iron (50-170) ug/dL TIBC (228-460) ug/dL Transferrin (204.0-354.0) mg/dL Lactate Dehydrogenase (313-618) U/L Total Protein 4.9 L (6.3-8.2) g/dL Albumin 2.5 L (3.5-5.0) g/dL 01/22/22 01/22/22 01/22/22 Range/Units 10:06 10:06 11:48 RBC (3.80-5.40) m/uL Hgb (11.4-16.0) gm/dL Hct (34.0-46.0) % Lymphocytes # (1.0-4.8) k/uL ESR 74 H (0-20) mm/hr Retic Count 5.8 H (0.5-2.0) % Sodium (137-145) mmol/L Potassium (3.5-5.1) mmol/L BUN (7-17) mg/dL Creatinine (0.52-1.04) mg/dL Glucose (74-99) mg/dL POC Glucose (mg/dL) 184 H (70-110) mg/dL Calcium (8.4-10.2) mg/dL Iron (50-170) ug/dL TIBC (228-460) ug/dL Transferrin (204.0-354.0) mg/dL Lactate Dehydrogenase 875 H (313-618) U/L Total Protein (6.3-8.2) g/dL Albumin (3.5-5.0) g/dL Microbiology - Last 24 Hours (Table) 01/19/22 18:04 Blood Culture - Preliminary Blood No Growth after 48 hours 01/19/22 18:04 Blood Culture - Preliminary Blood No Growth after 48 hours Assessment and Plan (1) Dementia Current Visit: Yes Status: Acute Code(s): F03.90 - UNSPECIFIED DEMENTIA WITHOUT BEHAVIORAL DISTURBANCE SNOMED Code(s): 27228342 (2) Normochromic anemia Narrative/Plan: Work-up ordered for possible supplementation LDH is elevated. Current Visit: Yes Status: Acute Code(s): D64.9 - ANEMIA, UNSPECIFIED SNOMED Code(s): 63963296 Plan: Dr. Moy: I have completed the full history and physical and developed the above impression and plan, agree with above dictation, dictated as a ascribe.
[2022-01-22 16:29] LABS: Glucose,Whole Blood 165 mg/dL (70-110)
[2022-01-22 17:14] LABS: Rheumatoid Factor, Qnt <10 IU/mL (0-15)
--- NOTE | 2022-01-22 20:16 | CT ---
EXAMINATION TYPE: CT angio chest CT DLP: 199.50 mGycm, Automated exposure control for dose reduction was used. DATE OF EXAM: 01/22/2022 7:47 PM COMPARISON: Chest radiograph from 01/19/2022. CLINICAL INDICATION:Female, 86 years old with history of d-dimer elevated; elevated d-dimer. AMS TECHNIQUE/CONTRAST: CTA scan of the thorax is performed with IV Contrast, patient injected with 52 mL of Isovue 370, pulm onary embolism protocol. MIP images are created and reviewed. FINDINGS: Pulmonary Artery: There is no evidence for a filling defect within the pulmonary vasculature to sugge st acute pulmonary embolism. The pulmonary artery is of normal size. Lungs/Pleura: Bilateral small pleural effusions with associated atelectasis. Similar atelectasis/scar ring in the right lung apex. Mild pulmonary vascular suggestions suggested. Airway: Large airways are patent. Heart: There are is enlarged for size. There is moderate to severe coronary artery atherosclerosis pr esent. Aortic valve leaflet calcifications are present. Vasculature: No evidence of aortic aneurysm. Scattered atherosclerosis of the arterial vasculature. Mediastinum: No gross evidence of adenopathy. Musculoskeletal: No acute osseous abnormalities. Mild multilevel disc degeneration changes throughout the spine. Soft Tissues: Unremarkable. Lower neck: Heterogenous appearing right thyroid gland with nodules present. Upper Abdomen: Small hiatal hernia is present. IMPRESSION: 1. No evidence of pulmonary embolism. 2. Cardiomegaly and small bilateral pleural effusions. Correlate with serum BNP for his heart failure . 3. Right thyroid gland nodules. 4. Moderate to severe coronary artery atherosclerosis.
--- NOTE | 2022-01-22 20:27 | PN ---
PROGRESS NOTE This is a white female, 86 years old. She does talk and she is feeling a little bit better. Her hemoglobin is increasing. Her family can feed her a few bites at a time. Her hemoglobin is 9.7, white count 7.7, potassium 3.4, sodium was 134. BUN and creatinine are a little bit lower. Sugars are mid 100s. Calcium is low at 8. Albumin is low at 2.5. ASSESSMENT: 1. Dementia. 2. Status post hip fracture. PT/OT. Dietary supplementation. Restart medications per family discussion. Try to find out why she is severely anemic, although it is improved today. Continue her IV iron intake and dietitian. Prognosis guarded. MMODL / IJN: [id number] /
[2022-01-22] MEDS: PRAVASTATIN SODIUM 20 MG TAB PO SCH (21:25)
[2022-01-22] MEDS: MEMANTINE 5 MG TAB PO SCH (21:25)
[2022-01-22] MEDS: LINAGLIPTIN 5 MG TABLET PO SCH (21:25)
[2022-01-22 21:32] LABS: Glucose,Whole Blood 149 mg/dL (70-110)
[2022-01-23] MEDS: SODIUM CHLORIDE 0.9% 1,000 ML IV SCH ×3 (00:13→23:09)
--- NOTE | 2022-01-23 08:12 | P.CNNES ---
History of Present Illness Consult date: 01/22/22 Requesting physician: Titus Gutierrez Reason for Consult: Altered mental status History of Present Illness: Patient is a 86-year-old female with history of dementia, hypertension, recent hip surgeries came to the hospital by ambulance on 01/19/2022 at 12:43 PM for evaluation of altered mental status, and failure to thrive. She was transferred from rehab facility. Patient has not been eating, drinking taking her medic ations for the last several days. Per son's report, patient seemed more agitated than normal. No known falls. Patient's vitals at the scene was blood pressure 127/69, pulse rate 90, blood sugar 161 and saturation 95% on room air. In the electronic records it was also mentioned that patient has recent history of right femur fracture status post fall, status post right hip cemented unipolar hemiarthroplasty on 01/12/2022. Patient has history of Alzheimer's dementia and schizoaffective disorder and has been on hospice previously at [facility]. Patient was brought to the ER secondary to family concerns for patient's decreased oral intake, more lethargy. Patient was recent ly discharged to rehab facility on 01/14/2022 after an unwitnessed fall. She ended up suffering from right femoral fracture and underwent surgery as mentioned above. CT head revealed no acute intracranial process. Nonspecific white matter changes, likely secondary to chronic small vessel ischemic disease. I personally reviewed CT head, agree with the findings. Mild prominence of the ventricles, but does not appear significantly out of proportion to the amount of cortical atrophy. Chest x-ray showed no acute cardiac or related process. Suspected layering pleural effusion. Pelvic x-ray revealed bilateral hip arthroplasty without evidence for new acute fracture. EKG shows sinus rhythm with occasional supraventricular premature complexes. Right bundle branch block. Patient's blood test shows normal WBC, hemoglobin 9.1, platelets 282. PT/PTT normal, sodium 136, renal functions normal, hepatic panel normal, troponin is mildly elevated 0.040. UA negative. Ocampo virus PCR and influenza screen negative. Patient's CBC as of this morning shows hemoglobin 7.5, with elevated MCV 100.0. B12 is normal 828, folate 15.0. TSH is mildly low 0.382 whereas free T4 normal 1.13. Lyme titer negative. Patient's home medications include primidone 50 mg 3 times a day, propranolol 20 mg twice a day, prednisone 5 mg twice a day, Haldol 1 mg 3 times a day, Lasix, Pravachol 20 mg, donepezil 5 mg and Namenda 5 mg at bedtime. Aspirin 81 mg daily. Patient at present not able to provide any history. Patient is having significant resting tremors. Please refer to examination below. Patient only 1 time uttered "would you please" Review of Systems ROS unobtainable: due to mental status Past Medical History Past Medical History: Dementia, Memory Impairment Additional Past Medical History / Comment(s): forgetful per son, unsure about some of her health hx., had problem in past w/GI bleeding or rectal bleeding?, recent sleep study done. History of Any Multi-Drug Resistant Organisms: None Reported Additional Past Surgical History / Comment(s): oral surgy on palate. , left partial thyroidectomy Past Anesthesia/Blood Transfusion Reactions: Unable to Obtain Additional Past Anesthesia/Blood Transfusion Reaction / Comment(s): mom not there w/him-he's unsure, he doesn't know of any problems Past Psychological History: Anxiety, Schizoaffective Disorder Smoking Status: Unknown if ever smoked Past Alcohol Use History: None Reported Past Drug Use History: None Reported - Past Family History Mother Family Medical History: No Reported History Additional Family Medical History / Comment(s): alzheimers Medications and Allergies Home Medications Medication Instructions Recorded Confirmed Type Primidone [Mysoline] 50 mg PO TID@0800,1200,1800 11/17/17 01/19/22 History Furosemide [Lasix] 20 mg PO DAILY 07/11/20 01/19/22 History Propranolol [Inderal] 20 mg PO BID@0800,199907/11/20 01/19/22 History haloperidoL [Haldol] 1 mg PO TID@0800,1300,199907/11/20 01/19/22 History predniSONE 5 mg PO BID@0800,199907/11/20 01/19/22 History Linagliptin [Tradjenta] 5 mg PO HS 01/11/22 01/19/22 History Acetaminophen Tab [Tylenol] 650 mg PO Q6HR PRN tab 01/14/22 01/19/22 Rx Potassium Chloride ER [K-Dur 20] 20 meq PO DAILY tab 01/14/22 01/19/22 Rx Pravastatin Sodium [Pravachol] 20 mg PO HS 90 Days #90 tab 01/14/22 01/19/22 Rx Aspirin [Adult Low Dose Aspirin EC] 81 mg PO BID@08,199901/19/22 01/19/22 History Donepezil [Aricept] 5 mg PO DAILY 01/19/22 01/19/22 History HYDROcodone/APAP 5-325MG [[place] 5] 1 tab PO Q6HR PRN 01/19/22 01/19/22 History LORazepam [Ativan] 0.5 mg PO Q6H PRN 01/19/22 01/19/22 History Memantine [Namenda] 5 mg PO HS@199901/19/22 01/19/22 History Sennosides-Docusate Sodium 1 tab PO BID@0800,199901/19/22 01/19/22 History [Senokot-S] Allergies Allergy/AdvReac Type Severity Reaction Status Date / Time No Known Allergies Allergy Verified 01/19/22 13:12 Physical Examination - Vital Signs Vital Signs: Vital Signs Temp Pulse Resp BP Pulse Ox 01/22/22 13:41 98 F 84 20 143/68 96 01/22/22 09:10 18 01/22/22 07:00 98.8 F 71 20 130/67 97 01/22/22 02:00 98.2 F 78 15 132/78 97 01/21/22 19:31 98.2 F 82 14 131/75 97 Intake and Output 01/22/22 01/22/22 01/22/22 06:59 14:59 22:59 Other: Voiding Method Diaper Diaper Incontinent Incontinent # Voids 1 4 Patient is an elderly male, in no respiratory distress. Patient is fully alert awake. Patient has a worried look on her face. Patient does make eye contact. Patient having obvious resting tremors of both hands, left more than right. Patient not able to provide any history. The only sentence she said clearly during the encounter was "would you please". Could not tell me her name or age. Speech and language functions could not be assessed because of mental status. Attention, concentration and fund of knowledge is very limited, and could not be assessed. On cranial examination, pupils are equal, round and reacting to light, her visual alcazar could not be tested because of noncooperation, but she does blink to visual threat bilaterally. She has significant matting of both eyes. Her extraocular muscles are intact with no nystagmus. Face is symmetric, did not protrude her tongue. Lower cranial nerves could not be tested because of her mental status. 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 On muscle strength testing, her strength of project mgr, biceps and triceps are normal. Patient's project mgr is very strong, suspect some degree of grasp reflex. Deltoid is 5 on the right, questionable 4 on the left, uncertain if related to noncooperation. Patient did not cooperate with testing of the lower extremities, although movement to any painful stimulus, or reflexive movements were equal and no clearcut deficits. She does move all 4 extremities. Deep tendon reflexes are diminished, plantars are withdrawal. Sensory to touch could not be assessed. Cerebellar function could not be assessed. Tone is severely increased in the upper extremities, moderately increased in the lower extremities and bulk of muscles normal. Patient has resting tremors of both hands, left much more than right. Gait not able to be checked. On general examination, there is no carotid bruit or murmur, S1-S2 audible. Abdomen is soft nontender. Chest is clear. Peripheral pulses are present. No edema. She has ecchymosis on her arms. Results - Laboratory Findings CBC and BMP: 01/22/22 10:06 01/22/22 10:06 Abnormal Lab Findings: Abnormal Labs 01/19/22 01/19/22 01/19/22 13:10 13:10 13:10 RBC 2.70 L Hgb 9.1 L Hct 26.8 L MCV MCH MPV Immature Gran # Lymphocytes # 0.8 L ESR Retic Count PT APTT 21.3 L Sodium 136 L Potassium Anion Gap BUN Creatinine 0.43 L Glucose 130 H POC Glucose (mg/dL) Calcium 8.3 L Iron TIBC Transferrin Lactate Dehydrogenase Troponin I Total Protein 5.2 L Albumin 2.7 L Albumin/Globulin Ratio Urine Protein Ur Leukocyte Esterase Urine Bacteria Urine Mucus 01/19/22 01/19/22 01/19/22 13:10 13:29 18:04 RBC Hgb Hct MCV MCH MPV Immature Gran # Lymphocytes # ESR Retic Count PT APTT Sodium Potassium Anion Gap BUN Creatinine Glucose POC Glucose (mg/dL) Calcium Iron TIBC Transferrin Lactate Dehydrogenase Troponin I 0.040 H* 0.058 H* Total Protein Albumin Albumin/Globulin Ratio Urine Protein Trace H Ur Leukocyte Esterase Small H Urine Bacteria Rare H Urine Mucus Rare H 01/19/22 01/19/22 01/20/22 20:21 21:44 05:07 RBC 2.20 L Hgb 7.1 L Hct 21.8 L MCV 99.1 H MCH 32.3 H MPV 9.4 L Immature Gran # 0.08 H Lymphocytes # 0.84 L ESR Retic Count PT APTT Sodium Potassium Anion Gap BUN Creatinine Glucose POC Glucose (mg/dL) 148 H Calcium Iron TIBC Transferrin Lactate Dehydrogenase Troponin I 0.263 H* Total Protein Albumin Albumin/Globulin Ratio Urine Protein Ur Leukocyte Esterase Urine Bacteria Urine Mucus 01/20/22 01/20/22 01/20/22 05:07 05:46 07:35 RBC Hgb Hct MCV MCH MPV Immature Gran # Lymphocytes # ESR Retic Count PT 12.2 H APTT 54.4 H Sodium Potassium 3.4 L Anion Gap 9.00 L BUN 7.6 L Creatinine 0.4 L Glucose 111 H POC Glucose (mg/dL) 114 H Calcium 7.8 L Iron TIBC Transferrin Lactate Dehydrogenase Troponin I Total Protein 4.3 L Albumin 2.6 L Albumin/Globulin Ratio 1.53 L Urine Protein Ur Leukocyte Esterase Urine Bacteria Urine Mucus 01/20/22 01/21/22 01/21/22 20:27 04:40 04:41 RBC 2.34 L Hgb 7.5 L Hct 23.4 L MCV 100.0 H MCH 32.1 H MPV 9.3 L Immature Gran # 0.07 H Lymphocytes # 0.59 L ESR Retic Count PT APTT Sodium Potassium Anion Gap BUN Creatinine Glucose POC Glucose (mg/dL) 158 H Calcium Iron 49 L TIBC 157 L Transferrin 112.0 L Lactate Dehydrogenase Troponin I Total Protein Albumin Albumin/Globulin Ratio Urine Protein Ur Leukocyte Esterase Urine Bacteria Urine Mucus 01/21/22 01/21/22 01/21/22 06:55 11:52 16:38 RBC Hgb Hct MCV MCH MPV Immature Gran # Lymphocytes # ESR Retic Count PT APTT Sodium Potassium Anion Gap BUN Creatinine Glucose POC Glucose (mg/dL) 133 H 117 H 160 H Calcium Iron TIBC Transferrin Lactate Dehydrogenase Troponin I Total Protein Albumin Albumin/Globulin Ratio Urine Protein Ur Leukocyte Esterase Urine Bacteria Urine Mucus 01/21/22 01/22/22 01/22/22 22:01 07:02 10:06 RBC 2.93 L Hgb 9.7 L Hct 28.8 L MCV MCH MPV Immature Gran # Lymphocytes # 0.6 L ESR Retic Count PT APTT Sodium Potassium Anion Gap BUN Creatinine Glucose POC Glucose (mg/dL) 176 H 120 H Calcium Iron TIBC Transferrin Lactate Dehydrogenase Troponin I Total Protein Albumin Albumin/Globulin Ratio Urine Protein Ur Leukocyte Esterase Urine Bacteria Urine Mucus 01/22/22 01/22/22 01/22/22 10:06 10:06 10:06 RBC Hgb Hct MCV MCH MPV Immature Gran # Lymphocytes # ESR 74 H Retic Count 5.8 H PT APTT Sodium 134 L Potassium 3.4 L Anion Gap BUN 4 L Creatinine 0.38 L Glucose 145 H POC Glucose (mg/dL) Calcium 8.0 L Iron TIBC Transferrin Lactate Dehydrogenase 875 H Troponin I Total Protein 4.9 L Albumin 2.5 L Albumin/Globulin Ratio Urine Protein Ur Leukocyte Esterase Urine Bacteria Urine Mucus 01/22/22 01/22/22 11:48 16:27 RBC Hgb Hct MCV MCH MPV Immature Gran # Lymphocytes # ESR Retic Count PT APTT Sodium Potassium Anion Gap BUN Creatinine Glucose POC Glucose (mg/dL) 184 H 165 H Calcium Iron TIBC Transferrin Lactate Dehydrogenase Troponin I Total Protein Albumin Albumin/Globulin Ratio Urine Protein Ur Leukocyte Esterase Urine Bacteria Urine Mucus Assessment and Plan Assessment: * Altered mental status, possible toxic metabolic encephalopathy. * Parkinsonism with tremors at rest, significantly increased tone with rigidity bilaterally. * Possible underlying dementia. * Macrocytic anemia, but normal B12, folate. Plan: * Patient probably has advanced dementia. Patient currently on donepezil 5 mg and Namenda 5 mg daily. Both of these are suboptimal doses. We'll try to obtain collateral history from patient's family. * Patient's B12, folate are normal. MMA, vitamin B1 level pending. We will check RPR. * Hematology on board for anemia. * We will consider trying Sinemet for severe parkinsonism. * Neurology will follow. Thank you for the consult.
[2022-01-23 08:52] LABS: Basophils # (A) 0.04 X 10*3/uL (0.00-0.10); Basophils % (A) 0.5 %; Eosinophils % (A) 1.3 %; HCT 25.7 % (37.2-46.3); HGB 8.6 g/dL (12.0-15.0); Immature Grans, Automated 1.3 %; Lymphocytes # (A) 0.81 X 10*3/uL (0.90-5.00); Lymphocytes % (A) 10.9 %; MCHC 33.5 g/dL (32.0-37.0); MCV 98.5 fL (80.0-97.0); Mean Platelet Volume 9.2 fL (9.5-12.2); Monocytes # (A) 0.49 X 10*3/uL (0.20-1.00); Monocytes % (A) 6.6 %; NRBC Per 100 WBC 0 /100 WBCS (0.0-0.0); Neutrophils # (A) 5.87 X 10*3/uL (1.80-7.70); Neutrophils % (A) 79.4 %; Platelet Count 292 X 10*3/uL (140-440); RBC 2.61 X 10*6/uL (4.10-5.20); RDW 12.9 % (11.5-14.5); WBC 7.41 X 10*3/uL (4.50-10.00)
[2022-01-23 09:01] LABS: African American GFR (CKD) 110.7 (60.0-200.0); Albumin 2.6 g/dL (3.8-4.9); Albumin/Globulin Ratio 1.37 (1.60-3.17); Anion Gap 12.5 mmol/L (10.00-18.00); BUN/Creat Ratio 14.45 Ratio (12.00-20.00); Blood Urea Nitrogen 5.8 mg/dL (9.0-27.0); Calcium 7.8 mg/dL (8.7-10.3); Carbon Dioxide 21.3 mmol/L (20.0-27.5); Globulin 1.9 g/dL (1.6-3.3); Magnesium 1.7 mg/dL (1.5-2.4); Non-African American GFR(CKD) 95.5 (60.0-200.0); Potassium 3.5 mmol/L (3.5-5.5); Total Bilirubin 0.3 mg/dL (0.30-1.20); Total Protein 4.6 g/dL (6.2-8.2)
[2022-01-23] MEDS: POTASSIUM CHLORIDE ER 20 MEQ TAB.ER PO SCH (09:27)
[2022-01-23] MEDS: PROPRANOLOL 20 MG TAB PO SCH ×3 (09:27→22:16)
[2022-01-23] MEDS: DONEPEZIL 5 MG TAB PO SCH (09:27)
[2022-01-23] MEDS: SENNOSIDES-DOCUSATE SODIUM 1 EACH TAB PO SCH ×2 (09:28→22:16)
[2022-01-23] MEDS: SODIUM FERRIC GLUCONAT-SUCROSE 125 MG in SODIUM CHLORIDE 0.9% 100 ML IVPB SCH (09:29)
[2022-01-23] MEDS: PRIMIDONE 50 MG TAB PO SCH ×3 (09:29→22:17)
[2022-01-23] MEDS: haloperidoL 1 MG TAB PO SCH ×3 (09:29→22:17)
[2022-01-23] MEDS: ASPIRIN 81 MG PO SCH ×2 (09:29→22:16)
[2022-01-23] MEDS: predniSONE 5 MG TAB PO SCH ×2 (09:29→22:17)
[2022-01-23] MEDS: FUROSEMIDE 20 MG TAB PO SCH (09:30)
[2022-01-23] MEDS: LINAGLIPTIN 5 MG TABLET PO SCH (22:16)
[2022-01-23] MEDS: PRAVASTATIN SODIUM 20 MG TAB PO SCH (22:16)
[2022-01-23] MEDS: MEMANTINE 10 MG TAB PO SCH (22:17)
[2022-01-23] MEDS: DONEPEZIL 10 MG TAB PO SCH (22:17)
[2022-01-24] MEDS: haloperidoL 1 MG TAB PO SCH ×3 (08:28→20:34)
[2022-01-24] MEDS: SENNOSIDES-DOCUSATE SODIUM 1 EACH TAB PO SCH ×2 (08:28→20:34)
[2022-01-24] MEDS: PRIMIDONE 50 MG TAB PO SCH ×3 (08:28→17:06)
[2022-01-24] MEDS: predniSONE 5 MG TAB PO SCH ×2 (08:28→20:34)
[2022-01-24] MEDS: ASPIRIN 81 MG PO SCH ×2 (08:28→20:33)
[2022-01-24] MEDS: POTASSIUM CHLORIDE ER 20 MEQ TAB.ER PO SCH (08:28)
[2022-01-24 08:29] LABS: Methylmalonic Acid 0.14 umol/L (<0.40)
[2022-01-24] MEDS: FUROSEMIDE 20 MG TAB PO SCH (08:29)
[2022-01-24] MEDS: PROPRANOLOL 20 MG TAB PO SCH ×2 (08:29→20:34)
[2022-01-24] MEDS: MEMANTINE 10 MG TAB PO SCH ×2 (08:30→20:34)
[2022-01-24 08:37] LABS: Basophils # (A) 0.05 X 10*3/uL (0.00-0.10); Basophils % (A) 0.5 %; Eosinophils # (A) 0.15 X 10*3/uL (0.04-0.35); Eosinophils % (A) 1.4 %; HCT 30.3 % (37.2-46.3); HGB 9.6 g/dL (12.0-15.0); Immature Grans, Automated 1.3 %; Lymphocytes # (A) 1.03 X 10*3/uL (0.90-5.00); Lymphocytes % (A) 9.7 %; MCH 31.7 pg (27.0-32.0); MCHC 31.7 g/dL (32.0-37.0); Mean Platelet Volume 9.3 fL (9.5-12.2); Monocytes # (A) 0.65 X 10*3/uL (0.20-1.00); Monocytes % (A) 6.1 %; NRBC Per 100 WBC 0 /100 WBCS (0.0-0.0); Neutrophils # (A) 8.59 X 10*3/uL (1.80-7.70); Platelet Count 368 X 10*3/uL (140-440); RBC 3.03 X 10*6/uL (4.10-5.20); RDW 13.3 % (11.5-14.5); WBC 10.61 X 10*3/uL (4.50-10.00)
[2022-01-24 09:11] LABS: African American GFR (CKD) 110.9 (60.0-200.0); Albumin 2.8 g/dL (3.8-4.9); Albumin/Globulin Ratio 1.4 (1.60-3.17); Anion Gap 11.2 mmol/L (10.00-18.00); Blood Urea Nitrogen 8.8 mg/dL (9.0-27.0); Calcium 8.4 mg/dL (8.7-10.3); Carbon Dioxide 23.8 mmol/L (20.0-27.5); Non-African American GFR(CKD) 95.6 (60.0-200.0); Potassium 4.1 mmol/L (3.5-5.5); Total Bilirubin 0.3 mg/dL (0.30-1.20); Total Protein 4.8 g/dL (6.2-8.2)
[2022-01-24] MEDS: SODIUM FERRIC GLUCONAT-SUCROSE 125 MG in SODIUM CHLORIDE 0.9% 100 ML IVPB SCH (11:34)
--- NOTE | 2022-01-24 11:38 | P.PN ---
Subjective Progress Note Date: 01/23/22 Patient was seen for a follow-up. Patient's son and daughter, both were present today. Patient's family mentioned that patient has been living in [place] after she had undergone hip surgery couple weeks ago. Apparently because of being on hospice, all medications were discontinued. This resulted in patient becoming very fiesty, kicking, hitting staff, spitting at the people, which is very unlike her. Today patient's family believes that she is doing much better, at least talking in full sentences. She is not combative anymore. She is not shaky anymore. Patient does have history of tremors "hold her life". These tremors have gotten progressively worse as she has become older. It also runs in the family, as her mother has tremor, as well as patient's sister with tremors. Also 2 brothers have tremors. Patient's family believes that patient has Alzheimer's dementia, stage IV. Her symptoms started about 5-6 years ago when she moved from [place] to [place]. Even while she was living in [place], patient has issues, as patient's daughter received a call from police department when patient was found confused. Patient's family states that patient also has history of schizophrenia, although electronic records mentions about schizoaffective disorder. She is in hospice. Patient has been using walker for last 2 years. When she fell couple weeks ago, she was not using her walker, which resulted in a fall and hip fracture. Objective - Vital Signs Vital signs: Vital Signs Temp 98.8 F 01/23/22 16:05 Pulse 77 01/23/22 16:05 Resp 16 01/23/22 16:05 BP 116/63 01/23/22 16:05 Pulse Ox 94 L 01/23/22 16:05 FiO2 Intake & Output 01/22/22 01/23/22 01/23/22 18:59 06:59 18:59 Intake Total 354 Balance 354 Weight 45.359 kg Intake: Oral 354 Other: Voiding Method Diaper Diaper Diaper Incontinent Incontinent Incontinent # Voids 4 1 - Exam Patient is laying comfortably in the bed. She is not shaking anymore like yesterday. Her tone has improved, but still increased about [id number] bilaterally. Face is symmetric. Detail examination deferred. - Labs CBC & Chem 7: 01/24/22 05:03 01/24/22 04:54 Labs: Abnormal Lab Results - Last 24 Hours (Table) 01/22/22 01/22/22 01/23/22 Range/Units 16:27 21:31 04:34 RBC 2.61 L (4.10-5.20) X 10*6/uL Hgb 8.6 L (12.0-15.0) g/dL Hct 25.7 L (37.2-46.3) % MCV 98.5 H (80.0-97.0) fL MCH 33.0 H (27.0-32.0) pg MPV 9.2 L (9.5-12.2) fL Immature Gran # 0.10 H (0.00-0.04) X 10*3/uL Lymphocytes # 0.81 L (0.90-5.00) X 10*3/uL D-Dimer 6.59 H (<0.60) mg/L FEU BUN (9.0-27.0) mg/dL Creatinine (0.6-1.5) mg/dL Glucose (70-110) mg/dL POC Glucose (mg/dL) 149 H (70-110) mg/dL Calcium (8.7-10.3) mg/dL Total Protein (6.2-8.2) g/dL Albumin (3.8-4.9) g/dL Albumin/Globulin Ratio (1.60-3.17) g/dL 01/23/22 Range/Units 04:34 RBC (4.10-5.20) X 10*6/uL Hgb (12.0-15.0) g/dL Hct (37.2-46.3) % MCV (80.0-97.0) fL MCH (27.0-32.0) pg MPV (9.5-12.2) fL Immature Gran # (0.00-0.04) X 10*3/uL Lymphocytes # (0.90-5.00) X 10*3/uL D-Dimer (<0.60) mg/L FEU BUN 5.8 L (9.0-27.0) mg/dL Creatinine 0.4 L (0.6-1.5) mg/dL Glucose 122 H (70-110) mg/dL POC Glucose (mg/dL) (70-110) mg/dL Calcium 7.8 L (8.7-10.3) mg/dL Total Protein 4.6 L (6.2-8.2) g/dL Albumin 2.6 L (3.8-4.9) g/dL Albumin/Globulin Ratio 1.37 L (1.60-3.17) g/dL Microbiology - Last 24 Hours (Table) 01/22/22 17:30 Urine Culture - Preliminary Urine,Catheterized 01/19/22 18:04 Blood Culture - Preliminary Blood No Growth after 72 hours 01/19/22 18:04 Blood Culture - Preliminary Blood No Growth after 72 hours Assessment and Plan Assessment: * Altered mental status, possible toxic metabolic encephalopathy. Possible due to discontinuing baseline medication while in hospice. * Tremors, long-standing, with significant family history of tremors. * Advanced Alzheimer's dementia. * Macrocytic anemia, but normal B12, folate. Plan: * Patient probably has advanced dementia. Patient currently on donepezil 5 mg and Namenda 5 mg daily. Both of these are suboptimal doses. May consider optimizing dose of these medications. Family wants to discuss with primary physician. * Patient's B12, folate are normal. MMA also normal 0.14, vitamin B1 level normal 39. RPR negative. * Hematology on board for anemia. * Patient's parkinsonian tremor have improved. Increased tremors was likely related to delirium. Hold off on Sinemet. * Discussed with family in detail.
--- NOTE | 2022-01-24 15:26 | DS ---
DISCHARGE SUMMARY ADDENDUM: She has a UTI, gram-negative bacilli. Sent her home on Augmentin 875 1 b.i.d. for 7 days, #14 pills await final sensitivity from the hospital. MMODL / IJN: [id number] /
--- NOTE | 2022-01-24 15:26 | DS ---
DISCHARGE SUMMARY The patient came to the hospital with chest pain and altered mental status. She was found to have negative fractures in the pelvis. Cardiology saw her. Atypical chest pain, she was cleared for myocardial infarction. She had severe anemia, hemoglobin down his 7.5, responded up to 9.5 with iron infusions. Neurology saw her. She had metabolic encephalopathy. She had an elevated D-dimer for which CT of the chest was negative for blood clot. She was found to have delirium secondary to anesthesia from her hip fracture surgery. She needed fall precautions. Her family can feed her at some points, but she is spitting out her pills at different points and acting confused and other times she is trying to get out of the bed. May have to switch her Haldol to IV or IM over at the shelter. Try to get her back to the shelter. Dietitian saw her for protein infusions. The family thought she had a decline in her mental status when they took her off her Aricept and Namenda over at the shelter prior to her hip fracture, which increased her confusion and may have contributed to her fall as hospice had stopped her medicines. Family wants her not in hospice at this time. We are going to try to get her back on her home medications. Continue with PT, OT, and nutritional support with the nurse aides over at the shelter. She was seen by Dr. Fink for altered mental status. Will follow up as an outpatient over at the shelter. We will try to discharge her home today. Condition stable. Prognosis guarded. Diet as tolerated. MEDICATIONS: ( ) t.i.d., propranolol 20 b.i.d. Aricept 10 mg daily, Namenda 5 mg b.i.d., potassium chloride 20 mEq daily. Prognosis is guarded. Follow up with Dr. Gutierrez in the shelter. MMODL / IJN: [id number] /
[2022-01-24] MEDS: AMOXIC-POT CLAV 875-125MG 1 EACH TAB PO SCH ×2 (17:04→20:34)
[2022-01-24] MEDS: SODIUM CHLORIDE 0.9% 1,000 ML IV SCH (17:06)
[2022-01-24 20:33] LABS: Glucose,Whole Blood 174 mg/dL (70-110)
[2022-01-24] MEDS: PRAVASTATIN SODIUM 20 MG TAB PO SCH (20:34)
[2022-01-24] MEDS: DONEPEZIL 10 MG TAB PO SCH (20:34)
[2022-01-24] MEDS: LINAGLIPTIN 5 MG TABLET PO SCH (20:34)
--- NOTE | 2022-01-24 21:53 | P.PN ---
Subjective Progress Note Date: 01/24/22 01/24/2022: Patient was seen for a follow-up. Patient is sleeping comfortably. No tremors noted. However on waking up, the tremors came up, and she was very shaky, left more than right. Tone was moderately increased. Patient not able to tell me her name. Patient said "I don't know". 01/23/2022: Patient was seen for a follow-up. Patient's son and daughter, both were present today. Patient's family mentioned that patient has been living in [facility] after she had undergone hip surgery couple weeks ago. Apparently because of being on hospice, all medications were discontinued. This resulted in patient becoming very fiesty, kicking, hitting staff, spitting at the people, which is very unlike her. Today patient's family believes that she is doing much better, at least talking in full sentences. She is not combative anymore. She is not shaky anymore. Patient does have history of tremors "hold her life". These tremors have gotten progressively worse as she has become older. It also runs in the family, as her mother has tremor, as well as patient's sister with tremors. Also 2 brothers have tremors. Patient's family believes that patient has Alzheimer's dementia, stage IV. Her symptoms started about 5-6 years ago when she moved from [place] to [place]. Even while she was living in [place], patient has issues, as patient's daughter received a call from police department when patient was found confused. Patient's family states that patient also has history of schizophrenia, although electronic records mentions about schizoaffective disorder. She is in hospice. Patient has been using walker for last 2 years. When she fell couple weeks ago, she was not using her walker, which resulted in a fall and hip fract ure. Objective - Vital Signs Vital signs: Vital Signs Temp 97.1 F L 01/24/22 07:42 Pulse 94 01/24/22 07:42 Resp 20 01/24/22 07:42 BP 143/74 01/24/22 07:42 Pulse Ox 95 01/24/22 07:42 FiO2 Intake & Output 01/23/22 01/24/22 01/24/22 18:59 06:59 18:59 Intake Total 354 293 Output Total 600 100 Balance -246 -100 293 Weight 45.359 kg Intake: Oral 354 293 Output: Urine 600 100 Other: Voiding Method Diaper Diaper Diaper Incontinent Incontinent Incontinent External Catheter # Bowel Movements 1 - Exam Patient is laying comfortably in the bed. She is not shaking anymore while sleeping, but started shaking on waking her up. Please refer to above. - Labs CBC & Chem 7: 01/24/22 05:03 01/24/22 04:54 Labs: Abnormal Lab Results - Last 24 Hours (Table) 01/24/22 01/24/22 Range/Units 04:54 05:03 WBC 10.61 H (4.50-10.00) X 10*3/uL RBC 3.03 L (4.10-5.20) X 10*6/uL Hgb 9.6 L (12.0-15.0) g/dL Hct 30.3 L (37.2-46.3) % MCV 100.0 H (80.0-97.0) fL MCHC 31.7 L (32.0-37.0) g/dL MPV 9.3 L (9.5-12.2) fL Immature Gran # 0.14 H (0.00-0.04) X 10*3/uL Neutrophils # 8.59 H (1.80-7.70) X 10*3/uL BUN 8.8 L (9.0-27.0) mg/dL Creatinine 0.4 L (0.6-1.5) mg/dL BUN/Creatinine Ratio 22.00 H (12.00-20.00) Ratio Glucose 129 H (70-110) mg/dL Calcium 8.4 L (8.7-10.3) mg/dL Total Protein 4.8 L (6.2-8.2) g/dL Albumin 2.8 L (3.8-4.9) g/dL Albumin/Globulin Ratio 1.40 L (1.60-3.17) g/dL Microbiology - Last 24 Hours (Table) 01/22/22 17:30 Urine Culture - Preliminary Urine,Catheterized Gram Neg Bacilli 01/19/22 18:04 Blood Culture - Preliminary Blood No Growth after 96 hours 01/19/22 18:04 Blood Culture - Preliminary Blood No Growth after 96 hours Assessment and Plan Assessment: * Altered mental status, possible toxic metabolic encephalopathy. Possible due to discontinuing baseline medication while in hospice. * Tremors, long-standing, with significant family history of tremors. * Advanced Alzheimer's dementia. * Macrocytic anemia, but normal B12, folate. Plan: * Patient probably has advanced dementia. Patient currently on donepezil 5 mg and Namenda 5 mg daily. Both of these are suboptimal doses. May consider optimizing dose of these medications. Family wants to discuss with primary physician. * Patient's B12, folate are normal. MMA also normal 0.14, vitamin B1 level normal 39. RPR negative. * Hematology on board for anemia. * Patient's parkinsonian tremor have improved. Increased tremors was likely related to delirium. May consider Sinemet, if the tremors and rigidity persist * Discussed with family in detail. Supportive care. * Please call neurology if any concerns. Dr. Seo is available for any neurol ogical concerns over the weekend.
[2022-01-25] MEDS: ASPIRIN 81 MG PO SCH ×2 (08:49→19:38)
[2022-01-25] MEDS: SENNOSIDES-DOCUSATE SODIUM 1 EACH TAB PO SCH ×2 (08:49→19:38)
[2022-01-25] MEDS: POTASSIUM CHLORIDE ER 20 MEQ TAB.ER PO SCH (08:49)
[2022-01-25] MEDS: AMOXIC-POT CLAV 875-125MG 1 EACH TAB PO SCH ×2 (08:49→19:39)
[2022-01-25] MEDS: FUROSEMIDE 20 MG TAB PO SCH (08:49)
[2022-01-25] MEDS: predniSONE 5 MG TAB PO SCH ×2 (08:54→19:38)
[2022-01-25] MEDS: haloperidoL 1 MG TAB PO SCH ×3 (08:54→19:38)
[2022-01-25] MEDS: PROPRANOLOL 20 MG TAB PO SCH ×2 (08:55→19:38)
[2022-01-25] MEDS: PRIMIDONE 50 MG TAB PO SCH ×3 (08:55→19:38)
[2022-01-25] MEDS: MEMANTINE 10 MG TAB PO SCH ×2 (08:55→19:39)
[2022-01-25] MEDS: SODIUM FERRIC GLUCONAT-SUCROSE 125 MG in SODIUM CHLORIDE 0.9% 100 ML IVPB SCH (12:00)
[2022-01-25 19:39] LABS: Glucose,Whole Blood 170 mg/dL (70-110)
[2022-01-25] MEDS: LINAGLIPTIN 5 MG TABLET PO SCH (19:39)
[2022-01-25] MEDS: PRAVASTATIN SODIUM 20 MG TAB PO SCH (19:39)
[2022-01-25] MEDS: DONEPEZIL 10 MG TAB PO SCH (19:39)
[2022-01-26] MEDS: SODIUM FERRIC GLUCONAT-SUCROSE 125 MG in SODIUM CHLORIDE 0.9% 100 ML IVPB SCH (08:37)
[2022-01-26 09:35] LABS: African American GFR (CKD) 110.9 (60.0-200.0); Anion Gap 7.6 mmol/L (10.00-18.00); BUN/Creat Ratio 42.25 Ratio (12.00-20.00); Blood Urea Nitrogen 16.9 mg/dL (9.0-27.0); Calcium 8.3 mg/dL (8.7-10.3); Carbon Dioxide 26.4 mmol/L (20.0-27.5); Non-African American GFR(CKD) 95.6 (60.0-200.0); Potassium 4.6 mmol/L (3.5-5.5)
[2022-01-26 10:30] LABS: Basophils # (A) 0.03 X 10*3/uL (0.00-0.10); Basophils % (A) 0.4 %; Eosinophils # (A) 0.07 X 10*3/uL (0.04-0.35); HCT 26.8 % (37.2-46.3); HGB 8.7 g/dL (12.0-15.0); Immature Grans, Automated 1.6 %; Lymphocytes # (A) 0.94 X 10*3/uL (0.90-5.00); Lymphocytes % (A) 12.8 %; MCHC 32.5 g/dL (32.0-37.0); MCV 101.5 fL (80.0-97.0); Mean Platelet Volume 9.4 fL (9.5-12.2); Monocytes # (A) 0.65 X 10*3/uL (0.20-1.00); Monocytes % (A) 8.9 %; NRBC Per 100 WBC 0 /100 WBCS (0.0-0.0); Neutrophils # (A) 5.53 X 10*3/uL (1.80-7.70); Neutrophils % (A) 75.3 %; Platelet Count 319 X 10*3/uL (140-440); RBC 2.64 X 10*6/uL (4.10-5.20); RDW 13.8 % (11.5-14.5); WBC 7.34 X 10*3/uL (4.50-10.00)
[2022-01-26] MEDS: predniSONE 5 MG TAB PO SCH ×2 (11:00→20:07)
[2022-01-26] MEDS: SENNOSIDES-DOCUSATE SODIUM 1 EACH TAB PO SCH ×2 (11:00→20:05)
[2022-01-26] MEDS: PROPRANOLOL 20 MG TAB PO SCH ×2 (11:00→20:07)
[2022-01-26] MEDS: ASPIRIN 81 MG PO SCH ×2 (11:00→20:05)
[2022-01-26] MEDS: MEMANTINE 10 MG TAB PO SCH ×2 (11:00→20:05)
[2022-01-26] MEDS: haloperidoL 1 MG TAB PO SCH ×3 (11:00→20:07)
[2022-01-26] MEDS: PRIMIDONE 50 MG TAB PO SCH ×3 (11:00→20:06)
[2022-01-26] MEDS: POTASSIUM CHLORIDE ER 20 MEQ TAB.ER PO SCH (11:01)
[2022-01-26] MEDS: FUROSEMIDE 20 MG TAB PO SCH (11:01)
[2022-01-26] MEDS: LINAGLIPTIN 5 MG TABLET PO SCH (20:05)
[2022-01-26] MEDS: DONEPEZIL 10 MG TAB PO SCH (20:05)
[2022-01-26] MEDS: PRAVASTATIN SODIUM 20 MG TAB PO SCH (20:07)
--- NOTE | 2022-01-27 01:45 | P.PN ---
Subjective Progress Note Date: 01/25/22 Patient is a 86-year-old female with a known history of dementia was admitted to the hospital 2 weeks prior to this admission for hip fracture and was discharged to skilled rehab facility; patient is brought in by a complaint by patient's family reporting poor oral intake for past 2 week since being discharged from hospital; patient was getting peak lethargic and family decided to patient to ED; patient unable to provide any history so all of this visit patient's chart; patient does have history of Alzheimer's dementia and schizoaffective disorder 01/25/2022 Patient is lying in the bed. Seems to be more awake and oriented. Was able to complete her breakfast this morning. No complaints of chest pain or shortness of breath. Patient does have underlying dementia. Also having shakiness of the right upper extremity. Patient has been afebrile. No cough or sputum production. Patient is being current ceftriaxone for E. coli urinary tract infection which is pansensitive. Laboratory data and current medications reviewed. Objective - Vital Signs Vital signs: Vital Signs Temp 98.6 F 01/25/22 19:19 Pulse 92 01/25/22 19:19 Resp 26 H 01/25/22 19:19 BP 113/66 01/25/22 19:19 Pulse Ox 98 01/25/22 19:19 FiO2 Intake & Output 01/25/22 01/25/22 01/26/22 06:59 18:59 06:59 Intake Total 300 Output Total 650 700 Balance -650 -400 Intake: Intake, IV Titration 100 Amount Sodium Ferric Gluconat- 100 Sucrose 125 mg In Sodium Chloride 0.9% 100 ml @ 100 mls/hr IVPB DAILY [facility] Rx#:[id number] Oral 200 Output: Urine 650 700 Other: Voiding Method Diaper Diaper Incontinent Incontinent External Catheter External Catheter - Exam PHYSICAL EXAMINATION: Patient is lying in the bed comfortably, no acute distress, awake alert but confused and dementia... HEENT: Normocephalic. Neck is supple. Pupils reactive. Nostrils clear. Oral cavity is moist. Neck reveals no JVD, carotid bruits, or thyromegaly. CHEST EXAMINATION: Trachea is central. Symmetrical expansion. Lung alcazar clear to auscultation and percussion. CARDIAC: Normal S1, S2 with no gallops. No murmurs ABDOMEN: Soft. Bowel sounds present. Nontender. No organomegaly. No abdominal bruits. Extremities: reveal no edema. No clubbing or cyanosis Neurologically awake, alert, patient does have dementia. Right upper extremity tremors. No gross focal deficits noted Skin: No rash or skin lesions. Psychiatric: Coperative. Could not be assessed completely.. Musculoskeletal: No joint swelling or deformity. - Labs CBC & Chem 7: 01/26/22 05:17 01/26/22 05:17 Labs: Abnormal Lab Results - Last 24 Hours (Table) 01/25/22 Range/Units 19:37 POC Glucose (mg/dL) 170 H (70-110) mg/dL Microbiology - Last 24 Hours (Table) 01/19/22 18:04 Blood Culture - Final Blood No Growth after 144 hours 01/19/22 18:04 Blood Culture - Final Blood No Growth after 144 hours 01/22/22 17:30 Urine Culture - Final Urine,Catheterized Escherichia coli Assessment and Plan Assessment: Altered mental status due to possible toxic metabolic encephalopathy. Tremors E. coli urinary tract infection Adult failure to thrive Diabetes type 2 [id number] Advanced Alzheimer's dementia Hyperlipidemia DVT prophylaxis on SCDs. Plan: Patient will be continued on antibiotics in the home ceftriaxone. Encourage oral intake. PT OT. Continue with pain management and bowel regimen. Patient is currently on Haldol 1 mg 3 times daily and Aricept, Namenda. Continue with hypoglycemic agents. Patient is also on prednisone 5 mg twice daily and iron supplementation. Time with Patient: Greater than 30
--- NOTE | 2022-01-27 01:47 | P.PN ---
Subjective Progress Note Date: 01/26/22 Patient is a 86-year-old female with a known history of dementia was admitted to the hospital 2 weeks prior to this admission for hip fracture and was discharged to skilled rehab facility; patient is brought in by a complaint by patient's family reporting poor oral intake for past 2 week since being discharged from hospital; patient was getting peak lethargic and family decided to patient to ED; patient unable to provide any history so all of this visit patient's chart; patient does have history of Alzheimer's dementia and schizoaffective disorder 01/25/2022 Patient is lying in the bed. Seems to be more awake and oriented. Was able to complete her breakfast this morning. No complaints of chest pain or shortness of breath. Patient does have underlying dementia. Also having shakiness of the right upper extremity. Patient has been afebrile. No cough or sputum production. Patient is being current ceftriaxone for E. coli urinary tract infection which is pansensitive. 01/26/2022 Patient is resting in the bed. Seems to be most lethargic and sleepy today. Denies any complaints of chest pain or shortness of breath. Patient has been afebrile. Laboratory test showed WBC 7.3 hemoglobin 8.7 and platelets 318 Sodium 137 potassium 4.6 chloride 103 bicarb is 26.4 BUN 16.9 and creatinine 0.4 and calcium 8.3. Patient is being continued on antibiotics and current blood pressure medications. Awaiting transfer to rehab/fdc. Complete review of systems could not be obtained at this time. Laboratory data and current medications reviewed. Objective - Vital Signs Vital signs: Vital Signs Temp 98.8 F 01/26/22 19:56 Pulse 86 01/26/22 19:56 Resp 17 01/26/22 19:56 BP 122/43 01/26/22 19:56 Pulse Ox 98 01/26/22 19:56 FiO2 Intake & Output 01/26/22 01/26/22 01/27/22 06:59 18:59 06:59 Intake Total 237 Balance 237 Intake: Oral 237 Other: Voiding Method Diaper External Catheter Incontinent External Catheter # Voids 3 1 # Bowel Movements 3 1 - Exam PHYSICAL EXAMINATION: Patient is lying in the bed comfortably, no acute distress, awake alert but confused and dementia... HEENT: Normocephalic. Neck is supple. Pupils reactive. Nostrils clear. Oral cavity is moist. Neck reveals no JVD, carotid bruits, or thyromegaly. CHEST EXAMINATION: Trachea is central. Symmetrical expansion. Lung alcazar clear to auscultation and percussion. CARDIAC: Normal S1, S2 with no gallops. No murmurs ABDOMEN: Soft. Bowel sounds present. Nontender. No organomegaly. No abdominal bruits. Extremities: reveal no edema. No clubbing or cyanosis Neurologically awake, alert, patient does have dementia. Right upper extremity tremors. No gross focal deficits noted Skin: No rash or skin lesions. Psychiatric: Coperative. Could not be assessed completely.. Musculoskeletal: No joint swelling or deformity. - Labs CBC & Chem 7: 01/26/22 05:17 01/26/22 05:17 Labs: Abnormal Lab Results - Last 24 Hours (Table) 01/26/22 01/26/22 Range/Units 05:17 05:17 RBC 2.64 L (4.10-5.20) X 10*6/uL Hgb 8.7 L (12.0-15.0) g/dL Hct 26.8 L (37.2-46.3) % MCV 101.5 H (80.0-97.0) fL MCH 33.0 H (27.0-32.0) pg MPV 9.4 L (9.5-12.2) fL Immature Gran # 0.12 H (0.00-0.04) X 10*3/uL Anion Gap 7.60 L (10.00-18.00) mmol/L Creatinine 0.4 L (0.6-1.5) mg/dL BUN/Creatinine Ratio 42.25 H (12.00-20.00) Ratio Glucose 127 H (70-110) mg/dL Calcium 8.3 L (8.7-10.3) mg/dL Microbiology - Last 24 Hours (Table) 01/19/22 18:04 Blood Culture - Final Blood No Growth after 144 hours 01/19/22 18:04 Blood Culture - Final Blood No Growth after 144 hours Assessment and Plan Assessment: Altered mental status due to possible toxic metabolic encephalopathy. Tremors E. coli urinary tract infection Adult failure to thrive Diabetes type 2 [id number] Advanced Alzheimer's dementia Hyperlipidemia DVT prophylaxis on SCDs. Plan: Patient will be continued on antibiotics in the home ceftriaxone. Encourage oral intake. PT OT. Continue with pain management and bowel regimen. Patient is currently on Haldol 1 mg 3 times daily and Aricept, Namenda. Continue with hypoglycemic agents. Patient is also on prednisone 5 mg twice daily and iron supplementation.
[2022-01-27] MEDS: SENNOSIDES-DOCUSATE SODIUM 1 EACH TAB PO SCH ×2 (08:51→20:10)
[2022-01-27] MEDS: PROPRANOLOL 20 MG TAB PO SCH ×2 (08:51→20:10)
[2022-01-27] MEDS: FUROSEMIDE 20 MG TAB PO SCH (08:51)
[2022-01-27] MEDS: ASPIRIN 81 MG PO SCH ×2 (08:51→20:10)
[2022-01-27] MEDS: predniSONE 5 MG TAB PO SCH ×2 (08:51→20:10)
[2022-01-27] MEDS: MEMANTINE 10 MG TAB PO SCH ×2 (08:51→20:11)
[2022-01-27] MEDS: PRIMIDONE 50 MG TAB PO SCH ×3 (08:51→17:54)
[2022-01-27] MEDS: haloperidoL 1 MG TAB PO SCH ×3 (08:51→20:10)
[2022-01-27] MEDS: POTASSIUM CHLORIDE ER 20 MEQ TAB.ER PO SCH (08:52)
[2022-01-27] MEDS: SODIUM FERRIC GLUCONAT-SUCROSE 125 MG in SODIUM CHLORIDE 0.9% 100 ML IVPB SCH (09:38)
--- NOTE | 2022-01-27 15:18 | P.PN ---
Subjective Progress Note Date: 01/27/22 Patient lethargic, opens eye to stimuli Objective - Vital Signs Vital signs: Vital Signs Temp 98.7 F 01/27/22 07:23 Pulse 61 01/27/22 07:23 Resp 16 01/27/22 07:23 BP 100/58 01/27/22 07:23 Pulse Ox 99 01/27/22 07:23 FiO2 Intake & Output 01/26/22 01/27/22 01/27/22 18:59 06:59 18:59 Intake Total 237 400 Balance 237 400 Intake: Oral 237 400 Other: Voiding Method External Catheter External Catheter Diaper # Voids 1 2 # Bowel Movements 1 1 - Exam Frail, Shaky Not responsive to questions thin NAD no rash - Labs CBC & Chem 7: 01/26/22 05:17 01/26/22 05:17 Labs: Abnormal Lab Results - Last 24 Hours (Table) 01/26/22 01/26/22 Range/Units 05:17 05:17 RBC 2.64 L (4.10-5.20) X 10*6/uL Hgb 8.7 L (12.0-15.0) g/dL Hct 26.8 L (37.2-46.3) % MCV 101.5 H (80.0-97.0) fL MCH 33.0 H (27.0-32.0) pg MPV 9.4 L (9.5-12.2) fL Immature Gran # 0.12 H (0.00-0.04) X 10*3/uL Anion Gap 7.60 L (10.00-18.00) mmol/L Creatinine 0.4 L (0.6-1.5) mg/dL BUN/Creatinine Ratio 42.25 H (12.00-20.00) Ratio Glucose 127 H (70-110) mg/dL Calcium 8.3 L (8.7-10.3) mg/dL Assessment and Plan (1) Dementia Current Visit: Yes Status: Acute Code(s): F03.90 - UNSPECIFIED DEMENTIA WITHOUT BEHAVIORAL DISTURBANCE SNOMED Code(s): 27056092 (2) Normochromic anemia Narrative/Plan: Work-up negative thus far, awaiting ferritin level Due to her overall poor performance status aggressive diagnostics are not recommended Current Visit: Yes Status: Acute Code(s): D64.9 - ANEMIA, UNSPECIFIED SNOMED Code(s): 11000459
[2022-01-27 17:25] LABS: Protein, Total 4.9 g/dL (6.2-8.2)
[2022-01-27] MEDS: PRAVASTATIN SODIUM 20 MG TAB PO SCH (20:11)
[2022-01-27] MEDS: DONEPEZIL 10 MG TAB PO SCH (20:11)
[2022-01-27] MEDS: LINAGLIPTIN 5 MG TABLET PO SCH (20:11)
[2022-01-27] MEDS: CEPHALEXIN 250 MG CAP PO SCH (22:00)
--- NOTE | 2022-01-28 07:35 | PN ---
PROGRESS NOTE The patient continues on IV Rocephin for UTI. Continue this in the fdc. She apparently is eating 75% of her food at this time. Remains on her Aricept, Namenda, Haldol, hypoglycemic agents. She is on prednisone 5 mg b.i.d., iron supplementation. She is eating 75% of her food. Hemoglobin is down to 8 7. White count 7.34. Blood cultures are negative. She had E coli UTI, susceptible to oral medicine. Seen by Hematology for severe anemia. ASSESSMENT: 1. Dementia. 2. Urinary tract infection. 3. Metabolic encephalopathy. 4. Normocytic anemia. She is supposed to be sent to the fdc tomorrow, finish up UTI with maybe some oral antibiotics as it is susceptible to oral medications and will follow up as an outpatient. MMORALIAL / IJN: [id number] /
[2022-01-28 07:58] VITALS: BP 98/51; PULSE 75; RESP 20; TEMP 95.9
--- NOTE | 2022-01-28 07:59 | DS ---
DISCHARGE SUMMARY ADDENDUM: Please add to the discharge summary. She was kept in the hospital over the weekend for metabolic encephalopathy and urinary tract infection, rehydration. She was started on IV Rocephin over the weekend. We will switch her to oral Keflex for the next 5 days in the assisted when she goes tomorrow. So she will be on Keflex 250 t.i.d. for the next 5 days and will recheck a urine culture after that. She is medically improved and stable. She is eating 75% of her food. She may need help with the land sales agent with assisted or nurse aide to help her eat. Follow up in the assisted. She is off hospice at this point. MMODL / IJN: [id number] /
[2022-01-28] MEDS: SODIUM FERRIC GLUCONAT-SUCROSE 125 MG in SODIUM CHLORIDE 0.9% 100 ML IVPB SCH (08:49)
[2022-01-28 09:01] LABS: Basophils # (A) 0.06 X 10*3/uL (0.00-0.10); Basophils % (A) 0.8 %; Eosinophils # (A) 0.08 X 10*3/uL (0.04-0.35); Eosinophils % (A) 1.1 %; HCT 28.5 % (37.2-46.3); HGB 8.8 g/dL (12.0-15.0); Immature Grans, Automated 1.2 %; Lymphocytes % (A) 12.2 %; MCH 32.1 pg (27.0-32.0); MCHC 30.9 g/dL (32.0-37.0); Mean Platelet Volume 9.7 fL (9.5-12.2); Monocytes # (A) 0.65 X 10*3/uL (0.20-1.00); Monocytes % (A) 8.8 %; NRBC Per 100 WBC 0 /100 WBCS (0.0-0.0); Neutrophils # (A) 5.57 X 10*3/uL (1.80-7.70); Neutrophils % (A) 75.9 %; Platelet Count 301 X 10*3/uL (140-440); RBC 2.74 X 10*6/uL (4.10-5.20); RDW 14.1 % (11.5-14.5); WBC 7.35 X 10*3/uL (4.50-10.00)
[2022-01-28] MEDS: ASPIRIN 81 MG PO SCH (10:21)
[2022-01-28] MEDS: MEMANTINE 10 MG TAB PO SCH (10:22)
[2022-01-28] MEDS: FUROSEMIDE 20 MG TAB PO SCH (10:22)
[2022-01-28] MEDS: predniSONE 5 MG TAB PO SCH (10:22)
[2022-01-28] MEDS: haloperidoL 1 MG TAB PO SCH (10:22)
[2022-01-28] MEDS: PRIMIDONE 50 MG TAB PO SCH (10:22)
[2022-01-28] MEDS: PROPRANOLOL 20 MG TAB PO SCH (10:22)
[2022-01-28] MEDS: POTASSIUM CHLORIDE ER 20 MEQ TAB.ER PO SCH (10:22)
[2022-01-28] MEDS: CEPHALEXIN 250 MG CAP PO SCH (10:23)
[2022-01-28] MEDS: SENNOSIDES-DOCUSATE SODIUM 1 EACH TAB PO SCH (10:23)
[2022-01-28 11:22] LABS: Albumin 2.44 g/dL (3.80-4.90); Gamma Globulin 0.54 g/dL (0.70-1.50)
[2022-01-28 11:46] LABS: Free Kappa Lt Chain Qnt, Serum 2.52 mg/dL (0.33-1.94); Free Lambda Lt Chain Qnt, Seru 2.47 mg/dL (0.57-2.63)
--- NOTE | 2022-01-30 06:46 | CDI ---
Documentation Clarification Form Date: 01/30/2022 06:26:00 AM From: Concepcion Campbell Admit Date: 01/21/2022 02:50:00 PM Patient Name: Emily Esqueda Visit Number: [id number] Discharge Date: 01/28/2022 12:27:00 PM ATTENTION: The Clinical Documentation Specialists (CDI) and [facility] Coding Staff appreciate your assistance in clarifying documentation. Please respond to the clarification below the line at the bottom and electronically sign. The CDI & [facility] Coding staff will review the response and follow-up if needed. Please note: Queries are made part of the Legal Health Record. If you have any questions, please contact the author of this message via ITS. Dr. Titus Gutierrez, The ED Note states appears malnourished in the general exam. Based on this information and the findings below, is there an additional diagnosis that is clinically appropriate for this patient? History/Risk Factors: Alzheimer's with dementia, schizoaffective disorder, Parkinson's, recent right femoral fx, T2DM, HTN, HLD, urinary incontinence Clinical Indicators: malnourished, failure to thrive, cachexia, poor oral intake LAB: Albumin PEP - 2.44; Total Protein PEP - 4.9; Albumin 2.7, 2.6, 2.5, 2.6, 2.8; Total Protein - 5.2, 4.3, 4.9, 4.6, 4.8 RD Consult Assessment: Poor oral intake past 2 weeks, no oral intake X 3-4 days prior to arrival Current BMI: 18.3 Insufficient energy intake: no oral intake for last 3-4 days. Treatment: Ensure Enlive TID; provide 1:1 feeding assistance during meals, cottage cheese and mashed potatoes added to meals Diagnosis that is clinically appropriate for this patient? [ ] Mild Protein-Calorie Malnutrition [ ] Moderate Protein-Calorie Malnutrition [ ] Severe Protein-Calorie Malnutrition [ ] Other condition, please specify [ ] Unable to Determine MTDD
--- NOTE | 2022-01-31 10:27 | CDI ---
Documentation Clarification Form Date: 01/30/2022 06:26:00 AM From: Concepcion Campbell Admit Date: 01/21/2022 02:50:00 PM Patient Name: Emily Esqueda Visit Number: [id number] Discharge Date: 01/28/2022 12:27:00 PM ATTENTION: The Clinical Documentation Specialists (CDI) and [facility] Coding Staff appreciate your assistance in clarifying documentation. Please respond to the clarification below the line at the bottom and electronically sign. The CDI & [facility] Coding staff will review the response and follow-up if needed. Please note: Queries are made part of the Legal Health Record. If you have any questions, please contact the author of this message via ITS. Dr. Titus Gutierrez, The ED Note states appears malnourished in the general exam. Based on this information and the findings below, is there an additional diagnosis that is clinically appropriate for this patient? History/Risk Factors: Alzheimer's with dementia, schizoaffective disorder, Parkinson's, recent right femoral fx, T2DM, HTN, HLD, urinary incontinence Clinical Indicators: malnourished, failure to thrive, cachexia, poor oral intake LAB: Albumin PEP - 2.44; Total Protein PEP - 4.9; Albumin 2.7, 2.6, 2.5, 2.6, 2.8; Total Protein - 5.2, 4.3, 4.9, 4.6, 4.8 RD Consult Assessment: Poor oral intake past 2 weeks, no oral intake X 3-4 days prior to arrival Current BMI: 18.3 Insufficient energy intake: no oral intake for last 3-4 days. Treatment: Ensure Enlive TID; provide 1:1 feeding assistance during meals, cottage cheese and mashed potatoes added to meals Diagnosis that is clinically appropriate for this patient? [ ] Mild Protein-Calorie Malnutrition [ ] Moderate Protein-Calorie Malnutrition [ ] Severe Protein-Calorie Malnutrition [ ] Other condition, please specify [ ] Unable to Determine MTDD
--- NOTE | 2022-02-02 12:07 | PN ---
PROGRESS NOTE ADDENDUM: Severe protein calorie malnutrition. MMODL / IJN: [id number] /
== END 2022-01-28 12:27 | DRG 811 ==
LOC: EC 12:43 → 6NMEDSUR 15:59 → OBSVTOIN 01-21 14:50 → 6NMEDSUR 01-22 03:07
PROVIDERS: ADMIT Family Medicine; ATTEND Family Medicine
DX: D53.9 Nutritional anemia, unspecified (principal); E43 Unspecified severe protein-calorie malnutrition; G93.41 Metabolic encephalopathy; R64 Cachexia; I67.89 Other cerebrovascular disease; J90 Pleural effusion, not elsewhere classified; N39.0 Urinary tract infection, site not specified; R62.7 Adult failure to thrive; F25.9 Schizoaffective disorder, unspecified; G20 Parkinson's disease; B96.20 Unspecified Escherichia coli [E. coli] as the cause of diseases classified elsewhere; F02.80 Dementia in other diseases classified elsewhere, unspecified severity, without behavioral disturbance, psychotic disturbance, mood disturbance, and anxiety; G30.9 Alzheimer's disease, unspecified; E11.9 Type 2 diabetes mellitus without complications; J44.9 Chronic obstructive pulmonary disease, unspecified; Z66 Do not resuscitate; Z20.822 Contact with and (suspected) exposure to COVID-19; I10 Essential (primary) hypertension; E78.5 Hyperlipidemia, unspecified; I45.10 Unspecified right bundle-branch block; I49.1 Atrial premature depolarization; E89.0 Postprocedural hypothyroidism; F41.9 Anxiety disorder, unspecified; S72.91XD Unspecified fracture of right femur, subsequent encounter for closed fracture with routine healing; S41.111A Laceration without foreign body of right upper arm, initial encounter; R32 Unspecified urinary incontinence; R77.8 Other specified abnormalities of plasma proteins; Z79.82 Long term (current) use of aspirin; Z79.84 Long term (current) use of oral hypoglycemic drugs; Z79.52 Long term (current) use of systemic steroids; Z79.899 Other long term (current) drug therapy; Z91.81 History of falling; Z96.643 Presence of artificial hip joint, bilateral; Z82.0 Family history of epilepsy and other diseases of the nervous system
CPT/HCPCS: 36415; 70450; 71046; 71275; 72170; 80048; 80053; 81001; 82140; 82607; 82728; 82746; 83010; 83540; 83550; 83605; 83615; 83735; 83880; 83883; 83921; 84165; 84425; 84484; 85025; 85045; 85379; 85610; 85652; 85730; 86038; 86334; 86431; 86780; 87040; 87077; 87086; 87186; 87502; 87635; 93005; 94760; 96360; 96361; 99285

== ENCOUNTER 2022-09-12 15:58 | Inpatient (IN) | payer MEDICARE, OTHER ==
--- NOTE | 2022-09-12 16:12 | ED ---
General Adult HPI - General Chief complaint: Neuro Symptoms/Deficit Stated complaint: Stroke like symptoms Time Seen by Provider: 09/12/22 15:59 Source: patient Mode of arrival: EMS Limitations: altered mental status, physical limitation - History of Present Illness Initial comments: Dictation was produced using [employer] dictation software. please excuse any grammatical, word or spelling errors. Chief Complaint: 86-year-old female presents with altered mental status History of Present Illness: 86-year-old female presents emergency department for altered mental status. She present illness obtained from EMS. Patient is allegedly DO NOT RESUSCITATE. She is unable to fight history of present illness. Symptoms allegedly began at 3 PM. She is advised to alert and oriented 1. Allegedly she can have very very basic on respirations. At around 3 PM they noticed that she was unable to do so anymore. She allegedly has history of dementia was no common by EMS somewhat patient's baseline mental status was. Unable to obtain ROS secondary to mental status PHYSICAL EXAM: General Impression: Alert, lethargic, cachectic, not following commands HEENT: atraumatic, extra-ocular movements intact, pupils equal and reactive to light bilaterally, mucous membranes moist. Cardiovascular: Tachycardic Chest: no retractions, no tachypnea Abdomen: abdomen soft, non-tender, non-distended, no organomegaly Musculoskeletal: Pulses present and equal in all extremities, no peripheral edema, contracted extremities Motor: Not tested Neurological: not following commands, pupils 3 mm reactive to light Skin: Intact with no visualized rashes ED course: 86-year-old female presents emergency department for altered mental status. It is unclear what the patient's baseline mental status is. She does appear to be a frail 86-year-old cachectic lady who is a and has a history of dementia. Nursing notes and chart review was performed I was notified by CT 18 that patient had an abnormal looking CT around 4:30 PM. There appear to be a large intra parenchymal bleed located to the right parietal area. Attempt was made to speak to Murray Esqueda who is listed as patient's power of deputy commonwealth's attorney at 4:30 PM. Phone call went the voicemail. Attempt was made to call Alexus Esqueda who is listed as person notified patient's chart. Phone call went directly to [employer] signal. My EKG interpretation: Ventricular rate 81, sinus rhythm,. 187, QRS 135, QTc 435. No IN prolongation, no QTC prolongation, no ST or T-wave changes noted. EKG compared to 01/19/2022 showing no changes. Overall, this EKG is unremarkable Spoke with Murray Esqueda at 4:53 PM. He does report that it is patient's wishes to be DO NOT RESUSCITATE.: Disposition options were discussed he would appreciate it if patient can be admitted to the hospital for end-of-life care and comfort measures. Was pt. sent in by a medical professional or institution (, [facility], ENGINE REPAIRER, urgent care, hospital, or group home...) When possible be specific @ -Sent in from group home Did you speak to anyone other than the patient for history (EMS, parent, family, police, friend...)? What history was obtained from this source @ -EMS Did you review nursing and triage notes (agree or disagree)? Why? @ -I reviewed and agree with nursing and triage notes Were old charts reviewed (outside hosp., previous admission, EMS record, old EKG, old radiological studies, urgent care reports/EKG's, group home records)? Report findings @ -No old charts were reviewed Differential Diagnosis (chest pain, altered mental status, abdominal pain women, abdominal pain men, vaginal bleeding, musculoskeletal, weakness, fever, dyspnea, syncope, headache, dizziness, GI bleed, back pain, seizure, CVA, palpatations, mental health)? @ -not applicable EKG interpreted by me (3pts min.). @ -seee above X-rays interpreted by me (1pt min.). @ -None done CT interpreted by me (1pt min.). @ -Large volume intracranial, intraparenchymal acute bleeding with shift and ventricular hemorrhage U/S interpreted by me (1pt. min.). @ -None done What testing was considered but not performed or refused? (CT, X-rays, U/S, labs)? Why? @ -See above What meds were considered but not given or refused? Why? @ -See above Did you discuss the management of the patient with other professionals (professionals i.e. [facility] Glover, ENGINE REPAIRER, lab, RT, psych nurse, social services counselor, operating room specialist, te acher, control officer manager, case maker)? Give summary @ -Spoke with primary care physician, Dr. Gutierrez who is willing to accept patients care for admission for end-of-life care Was smoking cessation discussed for >3mins.? @ -No Was critical care preformed (if so, how long)? @ -33 minutes Were there social determinants of health that impacted care today? How? (Homelessness, low income, unemployed, alcoholism, drug addiction, transportation, low edu. Level, literacy, decrease access to med. care, assisted, rehab)? @ -No Was there de-escalation of care discussed even if they declined (Discuss DNR or withdrawal of care, Hospice)? DNR status @ -No What co-morbidities impacted this encounter? (DM, HTN, Smoking, COPD, CAD, Cancer, CVA, ARF, Chemo, Hep., AIDS, mental health diagnosis, sleep apnea, morbid obesity)? @ -None Was patient admitted / discharged? Hospital course, mention meds given and route, prescriptions, significant lab abnormalities, going to OR and other p ertinent info. @ -See above Undiagnosed new problem with uncertain prognosis? @ -No Drug Therapy requiring intensive monitoring for toxicity (Heparin, Nitro, Insulin, Cardizem)? @ -No Were any procedures done? @ -No Diagnosis/symptom? Acute, or Chronic, or Acute on Chronic? Uncomplicated (without systemic symptoms) or Complicated (systemic symptoms)? @ -1. Acute intracranial bleed Side effects of treatment? @ -No Exacerbation, Progression, or Severe Exacerbation? @ -No Poses a threat to life or bodily function? How? (Chest pain, [place], [place], pneumonia, PE, COPD, DKA, ARF, appy, cholecystitis, CVA, Diverticulitis, Homicidal, Edward icidal, threat to staff... and all critical care pts) @ -No - Related Data Home Medications Medication Instructions Recorded Confirmed Primidone [Mysoline] 50 mg PO TID@0800,1200,1800 11/17/17 01/19/22 Furosemide [Lasix] 20 mg PO DAILY 07/11/20 01/19/22 Propranolol [Inderal] 20 mg PO BID@0800,199907/11/20 01/19/22 haloperidoL [Haldol] 1 mg PO TID@0800,1300,199907/11/20 01/19/22 predniSONE 5 mg PO BID@0800,199907/11/20 01/19/22 Linagliptin [Tradjenta] 5 mg PO HS 01/11/22 01/19/22 Aspirin [Adult Low Dose Aspirin EC] 81 mg PO BID@0800,199901/19/22 01/19/22 HYDROcodone/APAP 5-325MG [[place] 1 tab PO Q6HR PRN 01/19/22 01/19/22 5-325] Sennosides-Docusate Sodium 1 tab PO BID@0800,199901/19/22 01/19/22 [Senokot-S] Previous Rx's Medication Instructions Recorded Acetaminophen Tab [Tylenol] 650 mg PO Q6HR PRN tab 01/14/22 Potassium Chloride ER [K-Dur 20] 20 meq PO DAILY tab 01/14/22 Pravastatin Sodium [Pravachol] 20 mg PO HS 90 Days #90 tab 01/14/22 Amoxic-Pot Clav 875-125Mg 1 each PO Q12HR tab 01/24/22 [Augmentin 875-125] Donepezil [Aricept] 10 mg PO HS tab 01/24/22 LORazepam [Ativan] 0.5 mg PO Q6HR PRN tab 01/24/22 Memantine [Namenda] 10 mg PO BID tab 01/24/22 Cephalexin [Keflex] 250 mg PO TID cap 01/27/22 Allergies Allergy/AdvReac Type Severity Reaction Status Date / Time No Known Allergies Allergy Verified 09/12/22 16:38 Review of Systems ROS Statement: Those systems with pertinent positive or pertinent negative responses have been documented in the HPI. ROS Other: All systems not noted in ROS Statement are negative. Past Medical History Past Medical History: Dementia, Memory Impairment Additional Past Medical History / Comment(s): forgetful per son, unsure about some of her health hx., had problem in past w/GI bleeding or rectal bleeding?, recent sleep study done. History of Any Multi-Drug Resistant Organisms: None Reported Additional Past Surgical History / Comment(s): oral surgy on palate. , left partial thyroidectomy Past Anesthesia/Blood Transfusion Reactions: Unable to Obtain Additional Past Anesthesia/Blood Transfusion Reaction / Comment(s): mom not there w/him-he's unsure, he doesn't know of any problems Past Psychological History: Anxiety, Schizoaffective Disorder Smoking Status: Unknown if ever smoked Past Alcohol Use History: None Reported Past Drug Use History: None Reported - Past Family History Mother Family Medical History: No Reported History Additional Family Medical History / Comment(s): alzheimers General Exam Limitations: altered mental status, physical limitation Course Vital Signs 09/12/22 09/12/22 16:01 16:57 Temperature 97.5 F L Pulse Rate 64 75 Respiratory 18 12 Rate Blood Pressure 196/104 177/88 O2 Sat by Pulse 100 97 Oximetry Medical Decision Making - Lab Data Result diagrams: 09/12/22 16:16 09/12/22 16:16 Lab Results 09/12/22 09/12/22 09/12/22 Range/Units 16:16 16:16 16:16 WBC 6.2 (3.8-10.6) k/uL RBC 3.64 L (3.80-5.40) m/uL Hgb 11.8 (11.4-16.0) gm/dL Hct 35.0 (34.0-46.0) % MCV 96.2 (80.0-100.0) fL MCH 32.6 (25.0-35.0) pg MCHC 33.8 (31.0-37.0) g/dL RDW 12.1 (11.5-15.5) % Plt Count 275 (150-450) k/uL MPV 7.3 Neutrophils % 66 % Lymphocytes % 23 % Monocytes % 8 % Eosinophils % 1 % Basophils % 0 % Neutrophils # 4.1 (1.3-7.7) k/uL Lymphocytes # 1.4 (1.0-4.8) k/uL Monocytes # 0.5 (0-1.0) k/uL Eosinophils # 0.1 (0-0.7) k/uL Basophils # 0.0 (0-0.2) k/uL PT 9.9 (9.0-12.0) sec INR 0.9 (<1.2) APTT 22.3 (22.0-30.0) sec Sodium 135 L (137-145) mmol/L Potassium 4.3 (3.5-5.1) mmol/L Chloride 101 (98-107) mmol/L Carbon Dioxide 29 (22-30) mmol/L Anion Gap 5 mmol/L BUN 18 H (7-17) mg/dL Creatinine 0.40 L (0.52-1.04) mg/dL Est GFR (CKD-EPI)AfAm >90 (>60 ml/min/1.73 sqM) Est GFR (CKD-EPI)NonAf >90 (>60 ml/min/1.73 sqM) Glucose 94 (74-99) mg/dL Calcium 8.6 (8.4-10.2) mg/dL Magnesium 2.1 (1.6-2.3) mg/dL Disposition Clinical Impression: Cerebrovascular accident (CVA) Disposition: ADMITTED IP TO THIS HOSP Condition: Undetermined Referrals: Titus Gutierrez MD [Primary Care Provider] - 1-2 days Decision Time: 17:00
[2022-09-12 16:35] LABS: Basophils % (A) 0 %; Eosinophils # (A) 0.1 k/uL (0-0.7); Eosinophils % (A) 1 %; HGB 11.8 gm/dL (11.4-16.0); Lymphocytes # (A) 1.4 k/uL (1.0-4.8); Lymphocytes % (A) 23 %; MCH 32.6 pg (25.0-35.0); MCHC 33.8 g/dL (31.0-37.0); MCV 96.2 fL (80.0-100.0); Mean Platelet Volume 7.3; Monocytes # (A) 0.5 k/uL (0-1.0); Monocytes % (A) 8 %; Neutrophils # (A) 4.1 k/uL (1.3-7.7); Neutrophils % (A) 66 %; Platelet Count 275 k/uL (150-450); RBC 3.64 m/uL (3.80-5.40); RDW 12.1 % (11.5-15.5); WBC 6.2 k/uL (3.8-10.6)
[2022-09-12] MEDS ORDERED: LABETALOL 200 MG in SODIUM CHLORIDE 0.9% 160 ML IV ONE (16:44)
[2022-09-12] MEDS ORDERED: LABETALOL 5 MG/ML VIAL MDV IVP STA (16:44)
[2022-09-12] MEDS ORDERED: levETIRAcetam IV 1,000 MG in SALINE 1 100ML.BAG IVPB STA (16:47)
[2022-09-12 16:48] LABS: INR 0.9 (<1.2)
[2022-09-12 16:49] LABS: Partial Thromboplastin Time 22.3 sec (22.0-30.0); Prothrombin Time 9.9 sec (9.0-12.0)
[2022-09-12 16:51] LABS: African American GFR (CKD) >90 (>60 ml/min/1.73 sqM); Anion Gap 5 mmol/L; Blood Urea Nitrogen 18 mg/dL (7-17); Calcium 8.6 mg/dL (8.4-10.2); Carbon Dioxide 29 mmol/L (22-30); Chloride 101 mmol/L (98-107); Glucose 94 mg/dL (74-99); Magnesium 2.1 mg/dL (1.6-2.3); Non-African American GFR(CKD) >90 (>60 ml/min/1.73 sqM); Potassium 4.3 mmol/L (3.5-5.1); Sodium 135 mmol/L (137-145)
[2022-09-12] MEDS ORDERED: NALOXONE 0.4 MG/ML 1 ML VIAL IV PRN (16:55)
--- NOTE | 2022-09-12 16:55 | CT ---
EXAMINATION TYPE: CT brain wo con DATE OF EXAM: 09/12/2022 COMPARISON: 01/19/2022 HISTORY: ams CT DLP: 1099.4 mGycm Automated exposure control for dose reduction was used. Images obtained of the brain without contrast. There is 8.5 x 5 cm area of increased attenuation involving right cerebral hemisphere including the t halamus and right internal capsule related to acute parenchymal hemorrhage. There is acute subarachno id hemorrhage in the frontal horn right lateral ventricle. There is significant effacement of the rig ht lateral ventricle. The midline is shifted to the left side 10 mm. There is acute hemorrhage in the fourth ventricle and third ventricle. There are small amount of acute hemorrhage in the frontal horn left lateral ventricle. The calvarium is intact. IMPRESSION: Massive acute parenchymal hemorrhage right cerebral hemisphere with midline shift. Extensive acute sosa barachnoid hemorrhage in the ventricles. This is likely hypertensive type hemorrhage. Exam was discussed with emergency room attending staff at 4:50 PM. Hemorrhage appears new compared to old exam.
[2022-09-12] MEDS ORDERED: DRY MOUTH SPRAY 44.3 SPRAY/44.3 ML SPRAY MUCOUS MEM PRN (16:57)
[2022-09-12] MEDS ORDERED: ACETAMINOPHEN TAB 325 MG TAB PO PRN (16:57)
[2022-09-12] MEDS ORDERED: ONDANSETRON 4 MG/2 ML VIAL IVP PRN (16:57)
[2022-09-12] MEDS ORDERED: HYDROmorphone 0.5 MG/0.5 ML SYRINGE IVP PRN (17:04)
--- NOTE | 2022-09-12 17:16 | XR ---
EXAMINATION TYPE: XR chest 1V portable DATE OF EXAM: 09/12/2022 COMPARISON: 01/19/2022 HISTORY: Altered mental status TECHNIQUE: Single view FINDINGS: Heart size is normal. Thoracic aorta is atheromatous. There are chest leads. Costophrenic a ngles are clear. There are no hilar masses. IMPRESSION: Atheromatous aorta. No active cardiopulmonary disease. There is some clearing of the pleural fluid compared to old exam
[2022-09-12 18:09] VITALS: PULSE 76
[2022-09-12] MEDS: MORPHINE SULFATE (100 MG/2 ML) 100 MG in SODIUM CHLORIDE 0.9% 100 ML IV SCH (18:56)
[2022-09-12 19:00] VITALS: BP 149/78
[2022-09-13] MEDS: MORPHINE SULFATE (100 MG/2 ML) 100 MG in SODIUM CHLORIDE 0.9% 100 ML IV SCH (20:59)
--- NOTE | 2022-09-13 23:17 | HP ---
HISTORY AND PHYSICAL HISTORY OF PRESENT ILLNESS: This 86-year-old white female, came to the emergency room for abnormal mental status. She was found to have intracranial bleed. She is do not resuscitate. She is going to be admitted for possible hospice care. She has respiratory distress, altered mental status, family wants to make her DNR. She has been placed on pain control. She is evaluated in the ER. She has respiratory distress. She has large intraparenchymal bleed in the right parietal area, seizure. Her son is power of patent prosecution attorney, wants her comfort care. She is do not resuscitate. She has respiratory distress. PHYSICAL EXAMINATION: LUNGS: Scattered rhonchi and wheeze. HEMATOLOGY: Negative Homans. PSYCH: Fair mood and affect. PAST MEDICAL HISTORY: Dementia, memory impairment, COPD, psychosis with bipolar. Prognosis guarded. Comfort care will be done. Evaluate in the ER. Labs were reviewed. CAT scan was reviewed. Acute CVA with intracranial bleed. She wants to be comfort care only, make comfortable. She is nonresponsive. She is on pain control. Prognosis guarded. MMODL / IJN: [id number] /
--- NOTE | 2022-09-14 22:38 | PN ---
PROGRESS NOTE End-of life care. The patient's oncologist discussed the case with the daughter and the son. PHYSICAL EXAMINATION: CARDIOVASCULAR: S1, S2. LUNGS: Clear. PSYCH: Alert and oriented x0. She opens her eyes. She also makes noises. She is on comfort care measures. Prognosis is grave. Please see further orders. MMODL / IJN: [id number] /
[2022-09-15] MEDS: MORPHINE SULFATE (100 MG/2 ML) 100 MG in SODIUM CHLORIDE 0.9% 100 ML IV SCH ×2 (08:54→22:37)
--- NOTE | 2022-09-16 11:59 | CDI ---
Documentation Clarification Form Date: 09/16/2022 11:39:25 AM From: Mariely Zhou RN, CCDS Admit Date: 09/12/2022 4:56:00 PM Patient Name: Emily Esqueda Visit Number: [id number] Discharge Date: ATTENTION: The Clinical Documentation Specialists (CDI) and [facility] Coding Staff appreciate your assistance in clarifying documentation. Please respond to the clarification below the line at the bottom and electronically sign. The CDI & [facility] Coding staff will review the response and follow-up if needed. Please note: Queries are made part of the Legal Health Record. If you have any questions, please contact the author of this message via ITS. Dr. Titus Gutierrez There is documentation on arrival to ED via EMS had vital signs 196/104 68 18 97.5. She was ruled in for massive acute parenchymal hemorrhage right cerebral hemisphere with midline shift. Extensive acute subarachard hemorrhage in the ventricles. This is likely hypertensive type hemorrhage. Additional clarification is requested. History/Risk Factors: Dementia, Anxiety, Schizoaffective Disorder Clinical Indicators: 86-year-old female present for altered mental status. She was alert, lethargic, not following commands. VS: 196/104 64 18, 177/88 75 12, 187/88 73 18 Treatment: Labetalol 20 mg IV 09/12 (16:45-18:23) Monitor VS pre protocol Can you please clarify if you are treating? [ ] Hypertensive Emergency [ ] Hypertensive Urgency [ ] Other, please specify [ ] Unable to determine (Template Last Revised: September 2020) MTDD
[2022-09-16] MEDS: MORPHINE SULFATE (100 MG/2 ML) 100 MG in SODIUM CHLORIDE 0.9% 100 ML IV SCH (20:42)
--- NOTE | 2022-09-16 21:50 | PN ---
PROGRESS NOTE SUBJECTIVE: An 87-year-old white female end of life care, remains on Dilaudid, morphine, Narcan, and Zofran. Prognosis guarded. Good comfort care. She is on 2 L. She has shallow breathing. OBJECTIVE: CARDIOVASCULAR: S1, S2. LUNGS: Clear. GI: Soft. ASSESSMENT: End-stage life care with altered mental status, right parietal intracranial bleed, COPD, dementia. Prognosis guarded. Continue end of life comfort care. Prognosis guarded. MMODL / IJN: [id number] /
[2022-09-17 07:54] VITALS: BMI 21.2
--- NOTE | 2022-09-17 20:42 | PN ---
PROGRESS NOTE An 87-year-old white female remains on Dilaudid and morphine p.r.n. for pain, Narcan, Zofran, saliva substitute, is in comfort care at this time. Resting comfortably in bed. Waiting for family. Discussed case with the family. She has shallow nonlabored breathing at 16, O2 is 2 L. She is thin, cachectic. She is resting comfortably. Continue current comfort care per family request. MMODL / IJN: [id number] /
[2022-09-17] MEDS: MORPHINE SULFATE (100 MG/2 ML) 100 MG in SODIUM CHLORIDE 0.9% 100 ML IV SCH (22:36)
[2022-09-18] MEDS: MORPHINE SULFATE (100 MG/2 ML) 100 MG in SODIUM CHLORIDE 0.9% 100 ML IV SCH (19:46)
--- NOTE | 2022-09-19 08:13 | PN ---
PROGRESS NOTE Hypertensive urgency. MMODL / IJN: [id number] /
[2022-09-19 11:18] VITALS: RESP 22
[2022-09-19] MEDS: MORPHINE SULFATE (100 MG/2 ML) 100 MG in SODIUM CHLORIDE 0.9% 100 ML IV SCH (14:47)
[2022-09-19 22:20] VITALS: TEMP 102
--- NOTE | 2022-09-23 17:17 | CDI ---
Documentation Clarification Form Date: 09/23/2022 4:49:56 PM From: Marisel Acevedo Admit Date: 09/12/2022 4:56:00 PM Patient Name: Emily Esqueda Visit Number: [id number] Discharge Date: 09/20/2022 12:35:00 AM ATTENTION: The Clinical Documentation Specialists (CDI) and [facility] Coding Staff appreciate your assistance in clarifying documentation. Please respond to the clarification below the line at the bottom and electronically sign. The CDI & [facility] Coding staff will review the response and follow-up if needed. Please note: Queries are made part of the Legal Health Record. If you have any questions, please contact the author of this message via ITS. Dr. Titus Gutierrez Your patient has the documented symptom of Altered Mental Status in the ED note 3-10-02, H&P 09-13-22, and progress note 09-16-22. Additional clarification regarding the etiology/cause of this symptom is requested. History/Risk Factors: 86 year old female presented for altered mental status. Patient has a history of dementia, COPD, anxiety, and schizoaffective disorder. Was found to have an intracranial bleed. She is a DNR. Clinical Indicators: altered mental status, right parietal intracranial hemorrhage, has been placed on pain control and comfort care. Patient . CT: massive acute parenchymal hemorrhage right cerebral hemisphere with midline shift. Extensive acute subarachnoid hemorrhage in the ventricles. This is likely hypertensive type hemorrhage. Treatment: pain control and comfort measures Please clarify the etiology of the symptom of Altered Mental Status: [ ] Encephalopathy due to intracranial hemorrhage [ ] Metabolic Encephalopathy [ ] Delirium specify cause [ ] Other condition (please specify) [ ] Unable to determine MTDD
--- NOTE | 2022-09-24 19:03 | PN ---
PROGRESS NOTE ADDENDUM: Metabolic encephalopathy and encephalopathy due to intracranial hemorrhage. MMODL / IJN: [id number] /
--- NOTE | 2022-10-16 09:45 | CDI ---
Documentation Clarification Form Date: 10/16/2022 9:20:55 AM From: Sayra Ureña RN, CCDS Email: [email or web address] Admit Date: 09/12/2022 4:56:00 PM Patient Name: Emily Esqueda Visit Number: [id number] Discharge Date: 09/20/2022 12:35:00 AM ATTENTION: The Clinical Documentation Specialists (CDI) and [facility] Coding Staff appreciate your assistance in clarifying documentation. Please respond to the clarification below the line at the bottom and electronically sign. The CDI & [facility] Coding staff will review the response and follow-up if needed. Please note: Queries are made part of the Legal Health Record. If you have any questions, please contact the author of this message via ITS. Dr. Titus Gtuierrez The H&P indicates your patient had respiratory distress. Based on this information and the findings below, is there an additional diagnosis that is clinically appropriate for this patient? History/Risk Factors: dementia, COPD, psychosis with bipolar. She was nonresponsive and admitted with acute CVA with intracranial bleed. Clinical Indicators: H&P: "She has respiratory distress, altered mental status, family wants to make her DNR. She has been placed on pain control. She is evaluated in the ER. She has respiratory distress. She has large intra-parenchymal bleed in the right parietal area and seizure." 09/12 Vital signs: Temp 97.5, RR 18 10 Vital signs: Temp 102.0, RR 22 Pulse oximetry: 92-100% during admission Lung/Breathing assessment: Shallow breathing. Retractions Treatment: supplemental oxygen 2LNC. Comfort care Is there an additional diagnosis that is clinically appropriate for this patient? [ ] Acute Hypoxic Respiratory Failure (pO2 <60 mm Hg or SpO2 <91% on room air) [ ] Acute Respiratory Insufficiency [ ] Other Diagnosis, please specify [ ] Unable to determine MTDD
--- NOTE | 2022-10-21 10:18 | MISC ---
MISCELLANOUS REPORT Acute hypoxemic respiratory failure present on admission. MMODL / IJN: [id number] /
== END 2022-09-20 00:35 | disposition expired | DRG 64 ==
LOC: EC 15:58 → 5NMEDONC 16:56
PROVIDERS: ADMIT Family Medicine; ATTEND Family Medicine
DX: I61.8 Other nontraumatic intracerebral hemorrhage (principal); G93.41 Metabolic encephalopathy; J96.01 Acute respiratory failure with hypoxia; F03.94 Unspecified dementia, unspecified severity, with anxiety; R64 Cachexia; G93.49 Other encephalopathy; I61.5 Nontraumatic intracerebral hemorrhage, intraventricular; I16.0 Hypertensive urgency; F31.9 Bipolar disorder, unspecified; Z66 Do not resuscitate; F25.9 Schizoaffective disorder, unspecified; J44.9 Chronic obstructive pulmonary disease, unspecified; Z51.5 Encounter for palliative care; Z79.899 Other long term (current) drug therapy; Z79.82 Long term (current) use of aspirin
CPT/HCPCS: 36415; 70450; 71045; 80048; 83735; 85025; 85610; 85730; 93005; 94760; 96365; 96375; 99291